=== PATIENT | female | born 2000 | race African-American/Black ===

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

== ENCOUNTER → 2023-08-27 | Emergency (ER) | payer BC, OTHER, SELFPAY ==
[~2023-08-27] MED LIST: LIDOCAINE 1% MPF 5 ML VIAL ONE
--- OUTSIDE RECORDS SUMMARY | 2023-08-27 15:55 | XMS REPORT | Continuity of Care Document ---
Author Name Unknown Address [address] [facility] [place] [address] [facility] Address [address] [facility] [address] [place] [address] Care Team Providers Care Concreter Name Role Phone [facility] Primary Care Physician UnavailChayo Velazco MD Attending Clinician [phone] ELVA SNYDER Attending Clinician UnavailELVA Perez Attending Clinician UnavailSARAH Tineo Attending Clinician Unavailable Sarah Molina NP Attending Clinician [phone] Doctor Unassigned, [place] Attending Clinician U Mita Mallory MA Attending Clinician UnavailSpencer Whittaker MD Attending Clinician [phone] SPENCER CASTILLO Attending Clinician Unavailable Payers Payer Name Policy Type Policy Number Effective Date Expirati on Date Source [place] [employer] [id number] 2019 00:00:00 Problems Condition Name Condition Details Condition Category Status Onset Date Resolution Date Last Treatment Date Treating Clinician Comments Source Oral contracept tamera pill surveillan ce Oral contracept tamera pill surveillan ce Disease Active 04-09 00:00: 00 [facility] BMI 30.0-30.9, adult BMI 30.0-30.9, adult Disease Active 09-18 00:00: 00 [facility] Encounter for surveillan ce of contracept yoselyn, unspecifie d contracept tamera Encounter for surveillan ce of contracept yoselyn, unspecifie d contracept tamera Disease Active 2021-07 00:00: 00 [facility] Allergic reaction, initial encounter Allergic reaction, initial encounter Disease Active 2021-07 00:00: 00 [facility] BMI 27.0-27.9, adult BMI 27.0-27.9, adult Disease Active 2021-07 00:00: 00 [facility] Screening for venereal disease Screening for venereal disease Disease Active 09-16 00:00: 00 [facility] Vaginal discharge Vaginal discharge Disease Active 09-16 00:00: 00 [facility] Allergies, Adverse Reactions, Alerts Allergy Name Allergy Type Status Severity Reaction(s) Onset Date Inactive Date Treating Clinician Comments Source PENICILL INS Drug Class Active High Anaphylaxis 04-08 00:00: 00 [facility] Penicill ins Drug Allergy Active Anaphylaxis 04-08 00:00: 00 [facility] PENICILL IN DRUG INGREDI Active High Anaphylaxis 2014-07 00:00: 00 [facility] Penicill in Propensi ty to adverse reaction s Active Anaphylaxis 2014-07 00:00: 00 [facility] NO KNOWN ALLERGIE S Drug Class Active [facility] Social History Social Habit Start Date Stop Date Quantity Comments Source History of tobacco use Cigar Smoker [facility] History SDOH Alcohol Frequency [facility] History SDOH Alcohol Std Drinks [facility] History SDOH Alcohol Binge [facility] intake 2023-04-09 00:00:00 2023-04-09 00:00:00 Current drinker of alcohol (finding) [facility] Exposure to SARS-CoV-2 (event) 2022-09-08 00:00:00 2022-09-18 09:24:[address] [facility] Tobacco use and exposure 2022-09-18 00:00:00 2022-09-18 00:00:00 Smokeless tobacco non-user [facility] Tobacco Comment 2022-05-01 00:00:00 2022-05-01 00:00:00 smoked 1-[address] [facility] Alcohol Comment 2021-09-16 00:00:00 2021-09-16 00:00:[address] [facility] History of Social function 2021-09-16 00:00:00 2021-09-16 00:00:00 [facility] Sex Assigned At 2001 00:00:00 2001 00:00:00 [facility] Smoking Status Start Date Stop Date Source Tobacco smoking consumption unknown [facility] Ex-smoker 2022-09-18 00:00:00 2022-09-18 00:00:00 [facility] Medications Ordered Medication Name Filled Medication Name Start Date Stop Date Current Medication? Ordering Clinician Indication Dosage Frequency Signature (SIG) Comments Components Source metroNIDAZO LE 500 mg tablet 04-11 00:00: 00 Yes [id number] 500mg Take 1 tablet by mouth every 12 (twelve) hours. [facility] acetaminoph en-codeine (TYLENOL #3) 300-30 mg tablet 1 tablet 04-09 06:30: 00 04-09 18:29 :00 No 1{tbl} 1 tablet, Oral, ONCE, 1 dose, On Sun04/09/23 at 0130, Routine [facility] dexamethaso ne sod phos PF injection 10 mg 04-09 06:30: 00 04-09 18:29 :00 No 10mg 10 mg, Intramuscu lar, ONCE, 1 dose, On Sun04/09/23 at 0130, Routine [facility] ipratropium -albuteroL (DUONEB) 0.5 mg-3 mg(2.5 mg base)/3 mL nebulizer solution 3 mL 04-09 06:15: 00 04-09 18:14 :00 No 3mL 3 mL, Inhalation , ONCE NOW, 1 dose, On Sun04/09/23 at 0115, Routine [facility] norgestimat e-ethinyl estradioL (ORTHO TRI-CYCLEN, 28,) 0.18/0.215/ 0.25 mg-35 mcg (28) tablet 04-09 00:00: 00 Yes [id number] 1{tbl} Take 1 tablet by mouth in the morning. [facility] norgestimat e-ethinyl estradioL (ORTHO TRI-CYCLEN, 28,) 0.18/0.215/ 0.25 mg-35 mcg (28) tablet 04-09 00:00: 00 Yes [id number] 1{tbl} Take 1 tablet by mouth in the morning. [facility] doxycycline hyclate 100 mg capsule 04-09 00:00: 00 Yes [id number] 100mg Take 1 capsule by mouth in the morning and 1 capsule in the evening. [facility] methylPREDN ISolone 4 mg tablets 04-09 00:00: 00 Yes [id number] Take by mouth SEE-INSTRU CTIONS. follow package directions [facility] albuterol 90 mcg/actuati on inhaler 04-09 00:00: 00 Yes [id number] 2{puff} Inhale 2 Puffs every 4 (four) hours as needed for Wheezing or Shortness of Breath. [facility] norgestimat e-ethinyl estradioL (ORTHO TRI-CYCLEN, 28,) 0.18/0.215/ 0.25 mg-35 mcg (28) tablet 04-09 00:00: 00 Yes [id number] 1{tbl} Take 1 tablet by mouth in the morning. [facility] doxycycline hyclate 100 mg capsule 04-09 00:00: 00 Yes [id number] 100mg Take 1 capsule by mouth in the morning and 1 capsule in the evening. [facility] methylPREDN ISolone 4 mg tablets 04-09 00:00: 00 Yes [id number] Take by mouth SEE-INSTRU CTIONS. follow package directions [facility] albuterol 90 mcg/actuati on inhaler 04-09 00:00: 00 Yes [id number] 2{puff} Inhale 2 Puffs every 4 (four) hours as needed for Wheezing or Shortness of Breath. [facility] codeine-gua ifenesin 10-100 mg/5 mL oral solution 04-09 00:00: 00 04-17 04:59 :00 No 10mL Take 10 mL by mouth every 6 (six) hours as needed for Cough for up to 7 days. Indication s: cough [facility] codeine-gua ifenesin 10-100 mg/5 mL oral solution 04-09 00:00: 00 04-17 04:59 :00 No 10mL Take 10 mL by mouth every 6 (six) hours as needed for Cough for up to 7 days. Indication s: cough [facility] norgestimat e-ethinyl estradioL (ORTHO TRI-CYCLEN, 28,) 0.18/0.215/ 0.25 mg-35 mcg (28) tablet 09-18 00:00: 00 Yes [id number] 1{tbl} Take 1 tablet by mouth in the morning. [facility] norgestimat e-ethinyl estradioL (ORTHO TRI-CYCLEN, 28,) 0.18/0.215/ 0.25 mg-35 mcg (28) tablet 09-18 00:00: 00 Yes [id number] 1{tbl} Take 1 tablet by mouth in the morning. [facility] norgestimat e-ethinyl estradioL (ORTHO TRI-CYCLEN, 28,) 0.18/0.215/ 0.25 mg-35 mcg (28) tablet 09-18 00:00: 00 04-09 00:00 :00 No [id number] 1{tbl} Take 1 tablet by mouth in the morning. [facility] norgestimat e-ethinyl estradioL (ORTHO TRI-CYCLEN, 28,) 0.18/0.215/ 0.25 mg-35 mcg (28) tablet 09-18 00:00: 00 04-09 00:00 :00 No [id number] 1{tbl} Take 1 tablet by mouth in the morning. [facility] norgestimat e-ethinyl estradioL (ORTHO TRI-CYCLEN, 28,) 0.18/0.215/ 0.25 mg-35 mcg (28) tablet 2021-07 00:00: 00 Yes [id number] 1{tbl} Take 1 tablet by mouth in the morning. [facility] norgestimat e-ethinyl estradioL (ORTHO TRI-CYCLEN, 28,) 0.18/0.215/ 0.25 mg-35 mcg (28) tablet 2021-07 00:00: 00 Yes [id number] 1{tbl} Take 1 tablet by mouth in the morning. [facility] norgestimat e-ethinyl estradioL (ORTHO TRI-CYCLEN, 28,) 0.18/0.215/ 0.25 mg-35 mcg (28) tablet 2021-07 00:00: 00 Yes [id number] 1{tbl} Take 1 tablet by mouth in the morning. [facility] norgestimat e-ethinyl estradioL (ORTHO TRI-CYCLEN, 28,) 0.18/0.215/ 0.25 mg-35 mcg (28) tablet 2021-07 00:00: 00 Yes [id number] 1{tbl} Take 1 tablet by mouth in the morning. [facility] norgestimat e-ethinyl estradioL (ORTHO TRI-CYCLEN, 28,) 0.18/0.215/ 0.25 mg-35 mcg (28) tablet 2021-07 00:00: 00 09-18 00:00 :00 No [id number] 1{tbl} Take 1 tablet by mouth in the morning. [facility] norgestimat e-ethinyl estradioL (ORTHO TRI-CYCLEN, 28,) 0.18/0.215/ 0.25 mg-35 mcg (28) tablet 2021-07 00:00: 00 09-18 00:00 :00 No [id number] 1{tbl} Take 1 tablet by mouth in the morning. [facility] methylPREDN ISolone 4 mg tablets 2021-07 00:00: 05-25 05:59 :00 No [id number] Take by mouth SEE-INSTRU CTIONS for 6 days. follow package directions [facility] methylPREDN ISolone 4 mg tablets 2021-07 00:00: 00 05-25 05:59 :00 No [id number] Take by mouth SEE-INSTRU CTIONS for 6 days. follow package directions [facility] norelgestro min-ethinyl estradiol 150-35 mcg/24 hr patch 2021-07 0-17 00:00: 00 Yes [id number] 1{patch } Apply 1 Patch to skin weekly. [facility] norelgestro min-ethinyl estradiol 150-35 mcg/24 hr patch 2021-07 0 00:00: 00 Yes [id number] 1{patch } Apply 1 Patch to skin weekly. [facility] norelgestro min-ethinyl estradiol 150-35 mcg/24 hr patch 2021-07 00:00: 00 05-18 00:00 :00 No [id number] 1{patch } Apply 1 Patch to skin weekly. [facility] norelgestro min-ethinyl estradiol 150-35 mcg/24 hr patch 2021-07 00:00: 00 05-18 00:00 :00 No [id number] 1{patch } Apply 1 Patch to skin weekly. [facility] triamcinolo ne acetonide 0.1 % ointment 08-25 00:00: 00 09-16 00:00 :00 No APPLY 1 TO 2 TIMES A DAY [facility] traZODone 50 mg tablet 08-18 00:00: 00 09-16 00:00 :00 No TAKE BY MOUTH 1/2 TABLET AT BEDTIME FOR 4 DAYS THEN 1 TABLET AT BEDTIME [facility] pantoprazol e (PROTONIX) 40 mg EC tablet 2014-07 1 00:00: 00 09-16 00:00 :00 No [facility] montelukast (SINGULAIR) 10 mg tablet 2014-07 0 00:00: 00 09-16 00:00 :00 No [facility] VYVANSE 60 mg capsule 2014-07 0 00:00: 00 09-16 00:00 :00 No [facility] amitriptyli ne (ELAVIL) 50 mg tablet 2014-07 00:00: 00 09-16 00:00 :00 No [facility] OXcarbazepi ne (TRILEPTAL) 300 mg tablet 2014-07 00:00: 00 09-16 00:00 :00 No [facility] QUEtiapine (SEROQUEL) 100 mg tablet 04-07 00:00: 00 09-16 00:00 :00 No [facility] PROAIR HFA 90 mcg/actuati on inhaler 03-03 00:00: 00 09-16 00:00 :00 No [facility] Immunizations Ordered Immunization Name Filled Immunization Name Date Status Comments Source TDAP 2019-04-25 00:00:[address] [facility] TDAP 2019-04-25 00:00:[address] [facility] TDAP 2019-04-25 00:00:[address] [facility] TDAP 2019-04-25 00:00:[address] [facility] Meningococcal Polysaccharide (groups A, C, Y and W-135) conjugate vaccine (MCV4P) 2019-02-25 00:00:[address] [facility] TDAP 2019-02-25 00:00:[address] [facility] Meningococcal Polysaccharide (groups A, C, Y and W-135) conjugate vaccine (MCV4P) 2019-02-25 00:00:[address] [facility] TDAP 2019-02-25 00:00:[address] [facility] Meningococcal Polysaccharide (groups A, C, Y and W-135) conjugate vaccine (MCV4P) 2019-02-25 00:00:[address] [facility] TDAP 2019-02-25 00:00:[address] [facility] Meningococcal Polysaccharide (groups A, C, Y and W-135) conjugate vaccine (MCV4P) 2019-02-25 00:00:[address] [facility] TDAP 2019-02-25 00:00:[address] [facility] Influenza Virus Vaccine Quad .5 mL IM 6+ MO 2017-06-06 00:00:[address] [facility] Influenza Virus Vaccine Quad .5 mL IM 6+ MO 2017-06-06 00:00:[address] [facility] Influenza Virus Vaccine Quad .5 mL IM 6+ MO 2017-06-06 00:00:[address] [facility] Influenza Virus Vaccine Quad .5 mL IM 6+ MO 2017-06-06 00:00:[address] [facility] Influenza Virus Vaccine Quad .5 mL IM 6+ MO 2016-05-02 00:00:[address] [facility] HPV 2016-05-02 00:00:[address] [facility] Influenza Virus Vaccine Quad .5 mL IM 6+ MO 2016-05-02 00:00:[address] [facility] HPV 2016-05-02 00:00:[address] [facility] Influenza Virus Vaccine Quad .5 mL IM 6+ MO 2016-05-02 00:00:[address] [facility] HPV 2016-05-02 00:00:[address] [facility] Influenza Virus Vaccine Quad .5 mL IM 6+ MO 2016-05-02 00:00:[address] [facility] HPV 2016-05-02 00:00:[address] [facility] Influenza Virus Vaccine Quad Nasal 2015-05-07 00:00:[address] [facility] Influenza Virus Vaccine Quad Nasal 2015-05-07 00:00:[address] [facility] Influenza Virus Vaccine Quad Nasal 2015-05-07 00:00:[address] [facility] Influenza Virus Vaccine Quad Nasal 2015-05-07 00:00:[address] [facility] Influenza Virus Vaccine Quad IM Multi-dose 6+ MO 2014-05-09 00:00:[address] [facility] Influenza Virus Vaccine Quad IM Multi-dose 6+ MO 2014-05-09 00:00:[address] [facility] Influenza Virus Vaccine Quad IM Multi-dose 6+ MO 2014-05-09 00:00:[address] [facility] Influenza Virus Vaccine Quad IM Multi-dose 6+ MO 2014-05-09 00:00:[address] [facility] HPV 2014-01-07 00:00:[address] [facility] HPV 2014-01-07 00:00:[address] [facility] HPV 2014-01-07 00:00:[address] [facility] HPV 2014-01-07 00:00:[address] [facility] HPV 2013-09-23 00:00:[address] [facility] Meningococcal Polysaccharide (groups A, C, Y and W-135) conjugate vaccine (MCV4P) 2013-09-23 00:00:[address] [facility] TDAP 2013-09-23 00:00:[address] [facility] Varicella (varivax)(chicken pox) 2013-09-23 00:00:[address] [facility] HPV 2013-09-23 00:00:[address] [facility] Meningococcal Polysaccharide (groups A, C, Y and W-135) conjugate vaccine (MCV4P) 2013-09-23 00:00:[address] [facility] TDAP 2013-09-23 00:00:[address] [facility] Varicella (varivax)(chicken pox) 2013-09-23 00:00:[address] [facility] HPV 2013-09-23 00:00:[address] [facility] Meningococcal Polysaccharide (groups A, C, Y and W-135) conjugate vaccine (MCV4P) 2013-09-23 00:00:[address] [facility] TDAP 2013-09-23 00:00:[address] [facility] Varicella (varivax)(chicken pox) 2013-09-23 00:00:[address] [facility] HPV 2013-09-23 00:00:[address] [facility] Meningococcal Polysaccharide (groups A, C, Y and W-135) conjugate vaccine (MCV4P) 2013-09-23 00:00:[address] [facility] TDAP 2013-09-23 00:00:[address] [facility] Varicella (varivax)(chicken pox) 2013-09-23 00:00:[address] [facility] HEPATITIS A 2011-02-24 00:00:[address] [facility] HEPATITIS A 2011-02-24 00:00:[address] [facility] HEPATITIS A 2011-02-24 00:00:[address] [facility] HEPATITIS A 2011-02-24 00:00:[address] [facility] DTaP, Unspecified Formulation 2005-08-14 00:00:[address] [facility] HEPATITIS A 2005-08-14 00:00:[address] [facility] MMR 2005-08-14 00:00:[address] [facility] Pneumococcal 7 Conjugate, PCV7 (Prevnar7) 2005-08-14 00:00:[address] [facility] IPV 2005-08-14 00:00:[address] [facility] DTaP, Unspecified Formulation 2005-08-14 00:00:[address] [facility] HEPATITIS A 2005-08-14 00:00:[address] [facility] MMR 2005-08-14 00:00:[address] [facility] Pneumococcal 7 Conjugate, PCV7 (Prevnar7) 2005-08-14 00:00:[address] [facility] IPV 2005-08-14 00:00:[address] [facility] DTaP, Unspecified Formulation 2005-08-14 00:00:[address] [facility] HEPATITIS A 2005-08-14 00:00:[address] [facility] MMR 2005-08-14 00:00:[address] [facility] Pneumococcal 7 Conjugate, PCV7 (Prevnar7) 2005-08-14 00:00:[address] [facility] IPV 2005-08-14 00:00:[address] [facility] DTaP, Unspecified Formulation 2005-08-14 00:00:[address] [facility] HEPATITIS A 2005-08-14 00:00:[address] [facility] MMR 2005-08-14 00:00:[address] [facility] Pneumococcal 7 Conjugate, PCV7 (Prevnar7) 2005-08-14 00:00:[address] [facility] IPV 2005-08-14 00:00:[address] [facility] DTaP, Unspecified Formulation 2002-08-18 00:00:[address] [facility] HIB 4 Dose Schedule 2002-08-18 00:00:[address] [facility] MMR 2002-08-18 00:00:[address] [facility] Pneumococcal 7 Conjugate, PCV7 (Prevnar7) 2002-08-18 00:00:[address] [facility] Varicella (varivax)(chicken pox) 2002-08-18 00:00:[address] [facility] DTaP, Unspecified Formulation 2002-08-18 00:00:[address] [facility] HIB 4 Dose Schedule 2002-08-18 00:00:[address] [facility] MMR 2002-08-18 00:00:[address] [facility] Pneumococcal 7 Conjugate, PCV7 (Prevnar7) 2002-08-18 00:00:[address] [facility] Varicella (varivax)(chicken pox) 2002-08-18 00:00:[address] [facility] DTaP, Unspecified Formulation 2002-08-18 00:00:[address] [facility] HIB 4 Dose Schedule 2002-08-18 00:00:[address] [facility] MMR 2002-08-18 00:00:[address] [facility] Pneumococcal 7 Conjugate, PCV7 (Prevnar7) 2002-08-18 00:00:[address] [facility] Varicella (varivax)(chicken pox) 2002-08-18 00:00:[address] [facility] DTaP, Unspecified Formulation 2002-08-18 00:00:[address] [facility] HIB 4 Dose Schedule 2002-08-18 00:00:[address] [facility] MMR 2002-08-18 00:00:[address] [facility] Pneumococcal 7 Conjugate, PCV7 (Prevnar7) 2002-08-18 00:00:[address] [facility] Varicella (varivax)(chicken pox) 2002-08-18 00:00:[address] [facility] Hep B, Adol or Pedi Dosage 2002-07-05 00:00:[address] [facility] Hep B, Adol or Pedi Dosage 2002-07-05 00:00:[address] [facility] Hep B, Adol or Pedi Dosage 2002-07-05 00:00:[address] [facility] Hep B, Adol or Pedi Dosage 2002-07-05 00:00:[address] [facility] Hep B, Adol or Pedi Dosage 2002-05-05 00:00:[address] [facility] IPV 2002-05-05 00:00:[address] [facility] Hep B, Adol or Pedi Dosage 2002-05-05 00:00:[address] [facility] IPV 2002-05-05 00:00:[address] [facility] Hep B, Adol or Pedi Dosage 2002-05-05 00:00:[address] [facility] IPV 2002-05-05 00:00:[address] [facility] Hep B, Adol or Pedi Dosage 2002-05-05 00:00:[address] [facility] IPV 2002-05-05 00:00:[address] [facility] DTaP, Unspecified Formulation 2002-01-22 00:00:[address] [facility] HIB 4 Dose Schedule 2002-01-22 00:00:[address] [facility] Pneumococcal 7 Conjugate, PCV7 (Prevnar7) 2002-01-22 00:00:[address] [facility] DTaP, Unspecified Formulation 2002-01-22 00:00:[address] [facility] HIB 4 Dose Schedule 2002-01-22 00:00:[address] [facility] Pneumococcal 7 Conjugate, PCV7 (Prevnar7) 2002-01-22 00:00:[address] [facility] DTaP, Unspecified Formulation 2002-01-22 00:00:[address] [facility] HIB 4 Dose Schedule 2002-01-22 00:00:[address] [facility] Pneumococcal 7 Conjugate, PCV7 (Prevnar7) 2002-01-22 00:00:[address] [facility] DTaP, Unspecified Formulation 2002-01-22 00:00:[address] [facility] HIB 4 Dose Schedule 2002-01-22 00:00:[address] [facility] Pneumococcal 7 Conjugate, PCV7 (Prevnar7) 2002-01-22 00:00:[address] [facility] DTaP, Unspecified Formulation 2001 00:00:[address] [facility] HIB 4 Dose Schedule 2001 00:00:[address] [facility] Pneumococcal 7 Conjugate, PCV7 (Prevnar7) 2001 00:00:[address] [facility] IPV 2001 00:00:[address] [facility] DTaP, Unspecified Formulation 2001 00:00:[address] [facility] HIB 4 Dose Schedule 2001 00:00:[address] [facility] Pneumococcal 7 Conjugate, PCV7 (Prevnar7) 2001 00:00:[address] [facility] IPV 2001 00:00:[address] [facility] DTaP, Unspecified Formulation 2001 00:00:[address] [facility] HIB 4 Dose Schedule 2001 00:00:[address] [facility] Pneumococcal 7 Conjugate, PCV7 (Prevnar7) 2001 00:00:[address] [facility] IPV 2001 00:00:[address] [facility] DTaP, Unspecified Formulation 2001 00:00:[address] [facility] HIB 4 Dose Schedule 2001 00:00:[address] [facility] Pneumococcal 7 Conjugate, PCV7 (Prevnar7) 2001 00:00:[address] [facility] IPV 2001 00:00:[address] [facility] DTaP, Unspecified Formulation 2001 00:00:[address] [facility] HIB 4 Dose Schedule 2001 00:00:[address] [facility] Pneumococcal 7 Conjugate, PCV7 (Prevnar7) 2001 00:00:[address] [facility] IPV 2001 00:00:[address] [facility] DTaP, Unspecified Formulation 2001 00:00:[address] [facility] HIB 4 Dose Schedule 2001 00:00:[address] [facility] Pneumococcal 7 Conjugate, PCV7 (Prevnar7) 2001 00:00:[address] [facility] IPV 2001 00:00:[address] [facility] DTaP, Unspecified Formulation 2001 00:00:[address] [facility] HIB 4 Dose Schedule 2001 00:00:[address] [facility] Pneumococcal 7 Conjugate, PCV7 (Prevnar7) 2001 00:00:[address] [facility] IPV 2001 00:00:[address] [facility] DTaP, Unspecified Formulation 2001 00:00:[address] [facility] HIB 4 Dose Schedule 2001 00:00:[address] [facility] Pneumococcal 7 Conjugate, PCV7 (Prevnar7) 2001 00:00:[address] [facility] IPV 2001 00:00:[address] [facility] Hep B, Adol or Pedi Dosage 2001 00:00:[address] [facility] Hep B, Adol or Pedi Dosage 2001 00:00:[address] [facility] Hep B, Adol or Pedi Dosage 2001 00:00:[address] [facility] Hep B, Adol or Pedi Dosage 2001 00:00:[address] [facility] Hep B, Adol or Pedi Dosage 2001 00:00:[address] [facility] Hep B, Adol or Pedi Dosage 2001 00:00:[address] [facility] Hep B, Adol or Pedi Dosage 2001 00:00:[address] [facility] Hep B, Adol or Pedi Dosage 2001 00:00:[address] [facility] DTaP, Unspecified Formulation Unknown Completed [facility] DTaP, Unspecified Formulation Unknown Completed [facility] DTaP, Unspecified Formulation Unknown Completed [facility] DTaP, Unspecified Formulation Unknown Completed [facility] DTaP, Unspecified Formulation Unknown Completed [facility] Influenza Virus Vaccine Quad .5 mL IM 6+ MO (FLUZONE/FLULAVAL/FL UARIX) Unknown Completed [facility] Influenza Virus Vaccine Quad .5 mL IM 6+ MO (FLUZONE/FLULAVAL/FL UARIX) Unknown Completed [facility] Influenza Virus Vaccine Quad IM Multi-dose 6+ MO Unknown Completed [facility] Influenza Virus Vaccine Quad Nasal (Flumist) Unknown Completed [facility] HEPATITIS A Unknown Completed [facility] HEPATITIS A Unknown Completed [facility] Hep B, Adol or Pedi Dosage Unknown Completed [facility] Hep B, Adol or Pedi Dosage Unknown Completed [facility] Hep B, Adol or Pedi Dosage Unknown Completed [facility] Hep B, Adol or Pedi Dosage Unknown Completed [facility] HIB 4 Dose Schedule Unknown Completed [facility] HIB 4 Dose Schedule Unknown Completed [facility] HIB 4 Dose Schedule Unknown Completed [facility] HIB 4 Dose Schedule Unknown Completed [facility] HPV Unknown Completed [facility] HPV Unknown Completed [facility] HPV Unknown Completed [facility] Meningococcal Polysaccharide (groups A, C, Y and W-135) conjugate vaccine (MCV4P) Unknown Completed [facility] Meningococcal Polysaccharide (groups A, C, Y and W-135) conjugate vaccine (MCV4P) Unknown Completed [facility] MMR Unknown Completed [facility] MMR Unknown Completed [facility] Pneumococcal 7 Conjugate, PCV7 (Prevnar7) Unknown Completed [facility] Pneumococcal 7 Conjugate, PCV7 (Prevnar7) Unknown Completed [facility] Pneumococcal 7 Conjugate, PCV7 (Prevnar7) Unknown Completed [facility] Pneumococcal 7 Conjugate, PCV7 (Prevnar7) Unknown Completed [facility] Pneumococcal 7 Conjugate, PCV7 (Prevnar7) Unknown Completed [facility] IPV Unknown Completed [facility] IPV Unknown Completed [facility] IPV Unknown Completed [facility] IPV Unknown Completed [facility] TDAP Unknown Completed [facility] TDAP Unknown Completed [facility] TDAP Unknown Completed [facility] Varicella (varivax)(chicken pox) Unknown Completed [facility] Varicella (varivax)(chicken pox) Unknown Completed [facility] DTaP, Unspecified Formulation Unknown Completed [facility] DTaP, Unspecified Formulation Unknown Completed [facility] DTaP, Unspecified Formulation Unknown Completed [facility] DTaP, Unspecified Formulation Unknown Completed [facility] DTaP, Unspecified Formulation Unknown Completed [facility] Influenza Virus Vaccine Quad .5 mL IM 6+ MO (FLUZONE/FLULAVAL/FL UARIX) Unknown Completed [facility] Influenza Virus Vaccine Quad .5 mL IM 6+ MO (FLUZONE/FLULAVAL/FL UARIX) Unknown Completed [facility] Influenza Virus Vaccine Quad IM Multi-dose 6+ MO Unknown Completed [facility] Influenza Virus Vaccine Quad Nasal (Flumist) Unknown Completed [facility] HEPATITIS A Unknown Completed [facility] HEPATITIS A Unknown Completed [facility] Hep B, Adol or Pedi Dosage Unknown Completed [facility] Hep B, Adol or Pedi Dosage Unknown Completed [facility] Hep B, Adol or Pedi Dosage Unknown Completed [facility] Hep B, Adol or Pedi Dosage Unknown Completed [facility] HIB 4 Dose Schedule Unknown Completed [facility] HIB 4 Dose Schedule Unknown Completed [facility] HIB 4 Dose Schedule Unknown Completed [facility] HIB 4 Dose Schedule Unknown Completed [facility] HPV Unknown Completed [facility] HPV Unknown Completed [facility] HPV Unknown Completed [facility] Meningococcal Polysaccharide (groups A, C, Y and W-135) conjugate vaccine (MCV4P) Unknown Completed [facility] Meningococcal Polysaccharide (groups A, C, Y and W-135) conjugate vaccine (MCV4P) Unknown Completed [facility] MMR Unknown Completed [facility] MMR Unknown Completed [facility] Pneumococcal 7 Conjugate, PCV7 (Prevnar7) Unknown Completed [facility] Pneumococcal 7 Conjugate, PCV7 (Prevnar7) Unknown Completed [facility] Pneumococcal 7 Conjugate, PCV7 (Prevnar7) Unknown Completed [facility] Pneumococcal 7 Conjugate, PCV7 (Prevnar7) Unknown Completed [facility] Pneumococcal 7 Conjugate, PCV7 (Prevnar7) Unknown Completed [facility] IPV Unknown Completed [facility] IPV Unknown Completed [facility] IPV Unknown Completed [facility] IPV Unknown Completed [facility] TDAP Unknown Completed [facility] TDAP Unknown Completed [facility] TDAP Unknown Completed [facility] Varicella (varivax)(chicken pox) Unknown Completed [facility] Varicella (varivax)(chicken pox) Unknown Completed [facility] DTaP, Unspecified Formulation Unknown Completed [facility] DTaP, Unspecified Formulation Unknown Completed [facility] DTaP, Unspecified Formulation Unknown Completed [facility] DTaP, Unspecified Formulation Unknown Completed [facility] DTaP, Unspecified Formulation Unknown Completed [facility] Influenza Virus Vaccine Quad .5 mL IM 6+ MO (FLUZONE/FLULAVAL/FL UARIX) Unknown Completed [facility] Influenza Virus Vaccine Quad .5 mL IM 6+ MO (FLUZONE/FLULAVAL/FL UARIX) Unknown Completed [facility] Influenza Virus Vaccine Quad IM Multi-dose 6+ MO Unknown Completed [facility] Influenza Virus Vaccine Quad Nasal (Flumist) Unknown Completed [facility] HEPATITIS A Unknown Completed [facility] HEPATITIS A Unknown Completed [facility] Hep B, Adol or Pedi Dosage Unknown Completed [facility] Hep B, Adol or Pedi Dosage Unknown Completed [facility] Hep B, Adol or Pedi Dosage Unknown Completed [facility] Hep B, Adol or Pedi Dosage Unknown Completed [facility] HIB 4 Dose Schedule Unknown Completed [facility] HIB 4 Dose Schedule Unknown Completed [facility] HIB 4 Dose Schedule Unknown Completed [facility] HIB 4 Dose Schedule Unknown Completed [facility] HPV Unknown Completed [facility] HPV Unknown Completed [facility] HPV Unknown Completed [facility] Meningococcal Polysaccharide (groups A, C, Y and W-135) conjugate vaccine (MCV4P) Unknown Completed [facility] Meningococcal Polysaccharide (groups A, C, Y and W-135) conjugate vaccine (MCV4P) Unknown Completed [facility] MMR Unknown Completed [facility] MMR Unknown Completed [facility] Pneumococcal 7 Conjugate, PCV7 (Prevnar7) Unknown Completed [facility] Pneumococcal 7 Conjugate, PCV7 (Prevnar7) Unknown Completed [facility] Pneumococcal 7 Conjugate, PCV7 (Prevnar7) Unknown Completed [facility] Pneumococcal 7 Conjugate, PCV7 (Prevnar7) Unknown Completed [facility] Pneumococcal 7 Conjugate, PCV7 (Prevnar7) Unknown Completed [facility] IPV Unknown Completed [facility] IPV Unknown Completed [facility] IPV Unknown Completed [facility] IPV Unknown Completed [facility] TDAP Unknown Completed [facility] TDAP Unknown Completed [facility] TDAP Unknown Completed [facility] Varicella (varivax)(chicken pox) Unknown Completed [facility] Varicella (varivax)(chicken pox) Unknown Completed [facility] Vital Signs Vital Name Observation Time Observation Value Comments S villace Systolic blood pressure 2023-04-09 14:06:00 135 mm[Hg] [facility] Diastolic blood pressure 2023-04-09 14:06:00 72 mm[Hg] [facility] Heart rate 2023-04-09 14:06:00 106 /min [facility] Body temperature 2023-04-09 14:06:[address] [facility] Respiratory rate 2023-04-09 14:06:00 16 /min [facility] Body height 2023-04-09 14:06:[address] [facility] Body weight 2023-04-09 14:06:[address] [facility] BMI 2023-04-09 14:06:00 27.40 kg/m2 [facility] Systolic blood pressure 2023-04-09 03:26:00 122 mm[Hg] [facility] Diastolic blood pressure 2023-04-09 03:26:00 75 mm[Hg] [facility] Heart rate 2023-04-09 03:26:00 62 /min [facility] Body temperature 2023-04-09 03:26:[address] [facility] Respiratory rate 2023-04-09 03:26:00 16 /min [facility] Body height 2023-04-09 03:26:[address] [facility] Body weight 2023-04-09 03:26:[address] [facility] BMI 2023-04-09 03:26:00 30.18 kg/m2 [facility] Oxygen saturation in Arterial blood by Pulse oximetry 2023-04-09 03:26:00 97 /min [facility] Systolic blood pressure 2022-09-18 15:32:00 124 mm[Hg] [facility] Diastolic blood pressure 2022-09-18 15:32:00 87 mm[Hg] [facility] Heart rate 2022-09-18 15:32:00 82 /min [facility] Body temperature 2022-09-18 15:32:[address] [facility] Respiratory rate 2022-09-18 15:32:00 16 /min [facility] Body height 2022-09-18 15:32:[address] [facility] Body weight 2022-09-18 15:32:[address] [facility] BMI 2022-09-18 15:32:00 30.04 kg/m2 [facility] Systolic blood pressure 2022-05-18 15:54:00 101 mm[Hg] [facility] Diastolic blood pressure 2022-05-18 15:54:00 66 mm[Hg] [facility] Heart rate 2022-05-18 15:54:00 88 /min [facility] Body temperature 2022-05-18 15:54:[address] [facility] Respiratory rate 2022-05-18 15:54:00 16 /min [facility] Body height 2022-05-18 15:54:[address] [facility] Body weight 2022-05-18 15:54:[address] [facility] BMI 2022-05-18 15:54:00 29.51 kg/m2 [facility] Oxygen saturation in Arterial blood by Pulse oximetry 2022-05-18 15:54:00 98 /min [facility] Systolic blood pressure 2022-05-01 19:04:00 105 mm[Hg] [facility] Diastolic blood pressure 2022-05-01 19:04:00 66 mm[Hg] [facility] Heart rate 2022-05-01 19:04:00 77 /min [facility] Body temperature 2022-05-01 19:04:[address] [facility] Respiratory rate 2022-05-01 19:04:00 16 /min [facility] Body height 2022-05-01 19:04:[address] [facility] Body weight 2022-05-01 19:04:[address] [facility] BMI 2022-05-01 19:04:00 29.31 kg/m2 [facility] Oxygen saturation in Arterial blood by Pulse oximetry 2022-05-01 19:04:00 98 /min [facility] Systolic blood pressure 2021-09-16 20:30:00 107 mm[Hg] [facility] Diastolic blood pressure 2021-09-16 20:30:00 70 mm[Hg] [facility] Heart rate 2021-09-16 20:30:00 55 /[facility] Body temperature 2021-09-16 20:30:[address] [facility] Respiratory rate 2021-09-16 20:30:00 16 /min [facility] Body height 2021-09-16 20:30:[address] [facility] Body weight 2021-09-16 20:30:[address] [facility] BMI 2021-09-16 20:30:00 27.23 kg/m2 [facility] Systolic blood pressure 2021-09-16 20:30:00 107 mm[Hg] [facility] Diastolic blood pressure 2021-09-16 20:30:00 70 mm[Hg] [facility] Heart rate 2021-09-16 20:30:00 55 /min [facility] Body temperature 2021-09-16 20:30:[address] [facility] Respiratory rate 2021-09-16 20:30:00 16 /min [facility] Body height 2021-09-16 20:30:[address] [facility] Body weight 2021-09-16 20:30:[address] [facility] BMI 2021-09-16 20:30:00 27.23 kg/m2 [facility] Procedures Procedure Date / Time Performed Performing Clinician Source POCT TEST 2023-04-09 05:20:[address] [facility] ASSIGNMENT OF BENEFITS 2023-04-09 04:19:09 Docto r Unassigned, [place] [facility] NOTICE OF PRIVACY PRACTICES 2023-04-09 03:21:17 Doctor Unassigned, [place] [facility] CONSENT/REFUSAL FOR DIAGNOSIS AND TREATMENT 2023-04-09 03:19:40 Doctor Unassigned, [place] [facility] POCT TEST 2023-04-09 00:00:[address] [facility] CONSENT/REFUSAL FOR DIAGNOSIS AND TREATMENT 2022-09-18 15:26:49 Doctor Unassigned, [place] [facility] ASSIGNMENT OF BENEFITS 2022-09-18 15:26:30 Docyordy r Unassigned, [place] [facility] GC & CHLAMYDIA AMPLIFIED ASSAY 2022-05-18 16:13:[address] [facility] TRICHOMONAS AMPLIFIED ASSAY 2022-05-18 16:13:[address] [facility] POCT TEST 2022-05-18 [facility] CHLAMYDIA AMPLIFIED ASSAY 2021-09-16 20:53:[address] [facility] GALV ONLY - VAGINAL PATHOGENS BY NUCLEIC ACID TESTING 2021-09-16 20:53:[address] [facility] Encounters Start Date/Time End Date/Time Encounter Type Admission Type Attending [facility] Care Department Encounter ID Source 2023-05-14 10:00:00 2023-05-14 10:00:00 Outpatient R [facility] [id number] [facility] 2023-04-11 00:00:00 2023-04-11 00:00:00 Case Management Chayo Juarez [facility] [id number] 350.1.13.10 4.2.7.2.686 [id number] 134 [id number] [facility] 2023-04-09 09:00:00 2023-04-09 09:13:18 Outpatient R TATIANAELVA ARANDA TATIANAMERITRUEELVA SANTIAGO [facility] [id number] [facility] 2023-04-09 09:00:00 2023-04-09 09:13:18 [facility] [id number] 350.1.13.10 4.2.7.2.686 [id number] 134 [id number] [facility] 2023-04-08 22:28:00 2023-04-09 00:50:00 Emergency X ANGILIZETTE SARAH [facility] [id number] [facility] 2023-04-08 22:28:00 2023-04-09 00:50:00 Emergency Sarah Molina [facility] 1..840.114 350.1.13.10 4.2.7.2.686 [id number] [facility] 2023-04-02 15:00:00 2023-04-02 15:00:00 Outpatient R ZACKELVA SANTIAGO TATIANAMERITRUEELVA SANTIAGO [facility] [id number] [facility] 2022-11-28 11:00:00 2022-11-28 11:00:00 Outpatient R LILLIANELVA TATIANAMERIGUANAKO ELVA [facility] [id number] [facility] 2022-09-18 09:30:00 2022-09-18 10:18:01 Office Visit TatianaElva aranda [facility] 1.2.840.114 350.1.13.10 4.2.7.2.686 [id number] 134 [id number] [facility] 2022-09-18 09:30:00 2022-09-18 10:18:01 Outpatient R LILLIAN BESSIENAMAN LILLIAN ELVA [facility] [id number] [facility] 2022-09-18 09:30:00 2022-09-18 09:30:00 [facility] [id number] [facility] 2022-09-18 00:00:00 2022-09-18 00:00:00 Orders Only Doctor Unassigned, [place] [facility] 1..114 350.1.13.10 4.2.7.2.686 [id number] [facility] 2022-09-11 00:00:00 2022-09-11 00:00:00 Pre Visit Outreach Mita Waldron 1.84.114 350.1.13.10 4.2.7.2.686 [id number] [facility] 2022-05-18 11:00:00 2022-05-18 11:10:43 Outpatient R LILLIAN [facility] [id number] [facility] 2022-05-18 11:00:00 2022-05-18 11:10:43 Office Visit Elva Snyder [facility] 1.84.114 350.1.13.10 4.2.7.2.686 [id number] 134 [id number] [facility] 2022-05-01 14:00:00 2022-05-01 15:40:38 Out[facility]IAN [facility] [id number] [facility] 2022-05-01 14:00:00 2022-05-01 15:40:38 Office Visit Elva Snyder [facility] 1.84.114 350.1.13.10 4.2.7.2.686 [id number] 134 [id number] [facility] 2021-11-21 00:00:00 2021-11-21 00:00:00 [facility] 1.2.840.114 350.1.13.10 4.2.7.2.686 [id number] 134 [id number] [facility] 2021-09-30 00:00:00 2021-09-30 00:00:00 [facility] [place] 1.2.840.114 350.1.13.10 4.2.7.2.686 [id number] [facility] 2021-09-19 00:00:00 2021-09-19 00:00:00 [facility] 1.2.840.114 350.1.13.10 4.2.7.2.686 [id number] 134 [id number] [facility] 2021-09-19 00:00:00 2021-09-19 00:00:00 [facility] 1.2.840.114 350.1.13.10 4.2.7.2.686 [id number] 134 [id number] [facility] 2021-09-16 14:00:00 2021-09-16 14:53:30 Office Visit Elva Snyder [facility] 1.2.840.114 350.1.13.10 4.2.7.2.686 [id number] [facility] 2021-09-16 14:00:00 2021-09-16 14:53:30 Outpatient R SPENCER CASTILLO [facility] [id number] [facility] 2021-09-16 14:00:00 2021-09-16 14:53:30 Office Visit Elva Snyder [facility] 1.2.840.114 350.1.13.10 4.2.7.2.686 [id number] 134 [id number] [facility] 2021-09-16 14:00:00 2021-09-16 14:53:30 Outpatient R CASTILLOSPENCER [facility] [id number] [facility] Results Test Description Test Time Test Comments Results Result Co mments Source [id number] 14:06:00* Test Item Value Reference Range Interpretation Comme nts POCT PREG (test code = 1605) Negative On board controls acceptable with C Line (test code = 3574) Yes POCT PREG LOT # (test code = 3575) POCT PREG TEST DATE ( test code = 3576) [facility] [id number] 05:20:00* Test Item Value Reference Range Interpretation Comme nts POCT PREG (test code = 1605) Negative On board controls acceptable with C Line (test code = 3574) Yes POCT PREG LOT # (test code = 3575) [id number] POCT PREG TEST DATE ( test code = 3576) 2024 Lab Interpretation (test cod e = 86516-5) Normal [facility], NAAT, [id number] 18:01:58* Test Item Value Reference Range Interpretation Comme nts CHLAMYDIA, NAAT, URINE (test code = 21094) NEGATIVE NEGATIVE Testing is perfo rmed with Mitch CARMELITA 6800/8800 systems usingreal-time polymerase chain reaction (PCR) method. A negative result does not exclude low level infection, specimensampling error, or collection error. GONORRHEA, NAAT, URINE (test code = 73833) NEGATIVE NEGATIVE Testing is perfo rmed with Mitch CARMELITA 6800/8800 systems usingreal-time polymerase chain reaction (PCR) method. A negative result does not exclude low level infection, specimensampling error, or collection error. TRICHOMONAS, NAAT, [id number] 15:41:57* Test Item Value Reference Range Interpretation Comme nts TRICHOMONAS, NAAT, URINE (test code = 51219) NEGATIVE NEGATIVE Testing is perfo rmed with Mitch CARMELITA 6800/8800 method usingreal-time polymerase chain reaction (PCR) method. A negative result does not exclude low level infection, specimensampling error, or collection error. HERPES SIMPLEX AB, [id number] 14:19:52* Test Item Value Reference Range Interpretation [facility] HERPES SIMPLEX AB, IgM (test code = 30067) 0.89 INDEX SEE BELOW INTERPRETATION U NITS RANGE ----- ----- NEGATIVE INDEX <=0.89 EQUIVOCAL INDEX 0.90-1.09 POSITIVE INDEX >=1.10 HIV 1/2 4TH GEN, RFLX [id number] 04:18:51* Test Item Value Reference Range Interpretation Comme [facility] HIV 1/2 4TH GEN, RFLX CONF ( test code = 3514) NON-REACTIVE NON-REACTIVE HEPATITIS PANEL, [id number] 04:18:51* Test Item Value Reference [facility] IgM (test code = 32200) NON-REACTIVE NON-REACTIVE HEPATITIS B CORE IgM (test code = 4644) NON-REACTIVE NON-REACTIVE HEPATITIS B SURF AG (test code = 2739) NON-REACTIVE NON-REACTIVE HEPATITIS C ANTIBODY (test code = 4675) NON-REACTIVE NON-REACTIVE INTERPRETATION HEPATITIS A: (test code = 2552) (NOTE) Hepatitis A serology shows no evidence of acute hepatitis A. INTERPRETATION HEPATITIS B: (test code = 06115) (NOTE) Hepatitis B serology shows no evidence of acute hepatitis B andno indication of exposure to hepatitis B virus in the previous julio césar eight months. INTERPRETATION HEPATITIS C: (test code = 04147) (NOTE) Hepatitis C serology shows no evidence of exposure to hepatitisC virus at this time. It can take up to 12 months after exposure tothe hepatitis C virus for antibodies to become detectable in the blood in certain patients. HERPES SIMPLEX 1/2 AB, IgG [id number] 04:18:51* Test Item Value Reference Range [facility] 1 AB, IgG (test code = 35402) 0.030 INDEX SEE BELOW INTERPRETATION U NITS RANGE ----- ----- NON-REACTIVE INDEX <1.000 REACTIVE INDEX >=1.000 HERPES SIMPLEX 2 AB, IgG (test code = 59852) 0.077 INDEX SEE BELOW INTERPRETATION U NITS RANGE ----- ----- NON-REACTIVE INDEX <1.000 REACTIVE INDEX >=1.000 UNLESS OTHERWISE INDICATED, ALL TESTING PERFORMED AT [facility] [address] [place] [id number] RESEARCH METHODOLOGIST: TSERING SOSA M.D. CLIA NUMBER [id number] [facility] [place]. [id number] RPR REFLEX TO T. PALLIDUM - [id number] 03:20:24* Test Item Value Reference Range Interpretation Comme nts RPR (test code = 32617) NON-REACTIVE NON-REACTIVE RPR TITER (test code = 3500) NOT INDIC. TITER NOT INDIC. POCT [id number] 16:05:00* Test Item Value Reference Range Interpretation Comme nts POCT PREG (test code = 1605) Negative On board controls acceptable with C Line (test code = 3574) Yes POCT PREG LOT # (test code = 3575) POCT PREG TEST DATE ( test code = 3576) [facility] [id number] 16:05:00* Test Item Value Reference Range Interpretation Comme nts POCT PREG (test code = 1605) Negative On board controls acceptable with C Line (test code = 3574) Yes POCT PREG LOT # (test code = 3575) POCT PREG TEST DATE ( test code = 3576) [facility] [id number] 19:14:00* Test Item Value Reference Range Interpretation Comme nts POCT PREG (test code = 1605) Negative On board controls acceptable with C Line (test code = 3574) Yes POCT PREG LOT # (test code = 3575) POCT PREG TEST DATE ( test code = 3576) [facility] [id number] 19:14:00* Test Item Value Reference Range Interpretation Comme nts POCT PREG (test code = 1605) Negative On board controls acceptable with C Line (test code = 3574) Yes POCT PREG LOT # (test code = 3575) POCT PREG TEST DATE ( test code = 3576) [facility]
--- NOTE | 2023-08-27 17:40 | ER ---
Nurse's Notes [facility] Name: Michelle Conner Age: 23 yrs Sex: Female : 2000 Arrival Date: 08/27/2023 Time: 15:52 Bed 11 Private MD: Diagnosis: Laceration without foreign body of finger without damage to nail Presentation: 08/27 16:15 Chief complaint: Patient states: cut right pointer finger with eyebrow razor. ko1 Coronavirus screen: At this time, the client does not indicate any symptoms associated with coronavirus-19. Ebola Screen: No symptoms or risks identified at this time. Initial Sepsis Screen: Does the patient meet any 2 criteria? No. Patient's initial sepsis screen is negative. Does the patient have a suspected source of infection? No. Patient's initial sepsis screen is negative. Risk Assessment: Do you want to hurt yourself or someone else? Patient reports no desire to harm self or others. Onset of symptoms was August 27, 2023. Care prior to arrival: Bleeding of injury controlled. Injury dressed. 16:15 Method Of Arrival: Ambulatory ko1 16:15 Acuity: NAKITA 4 ko1 Triage Assessment: 16:44 General: Appears in no apparent distress. comfortable, Behavior is calm, cooperative, ko1 appropriate for age. Pain: Complains of pain in palmar aspect of middle phalanx of right index finger. Musculoskeletal: Circulation, motion, and sensation intact. Injury Description: Laceration sustained to palmar aspect of middle phalanx of right index finger moderate bleeding noted at this time. Historical: - Allergies: 16:44 PENICILLINS; ko1 - PMHx: 16:44 ADD/ADHD; Migraines; ko1 - PSHx: 16:44 Tonsillectomy; ko1 - Immunization history:: Adult Immunizations up to date, Last tetanus immunization: < 5 years ago. - Social history:: Smoking status: Patient denies any tobacco usage or history of. Screenin:46 [facility] ED Fall Risk Assessment (Adult) History of falling in the last 3 months, ko1 including since admission No falls in past 3 months (0 pts). Abuse screen: Denies threats or abuse. Denies injuries from another. Nutritional screening: No deficits noted. Tuberculosis screening: No symptoms or risk factors identified. Assessment: 16:46 Pain: Complains of pain in palmar aspect of middle phalanx of right index finger. ko1 Musculoskeletal: Circulation, motion, and sensation intact. Vital Signs: 16:15 BP 138 / 83; Pulse 58; Resp 16; Temp 98.1; Pulse Ox 100% on R/A; ko1 17:46 BP 132 / 77; Pulse 74; Resp 18; Pulse Ox 98% ; ko1 ED Course: 15:55 Patient arrived in ED. im 15:57 [facility]C [facility] sb4 15:57 Raphael Martinez DO is Attending Physician. sb4 16:16 Kianna Brito, RN is Primary Nurse. ko1 16:44 Triage completed. ko1 16:44 Arm band placed on right wrist. Patient placed in an exam room, on a stretcher, on ko1 pulse oximetry, Patient notified of wait time. 16:46 Patient has correct armband on for positive identification. Bed in low position. Call ko1 light in reach. Pulse ox on. NIBP on. Door closed. Noise minimized. Lights dimmed. Warm blanket given. 16:46 Patient did not have IV access during this emergency room visit. ko1 17:40 Provided Education on: suture care. ko1 17:40 Assist provider with laceration repair on palmar aspect of middle phalanx of right ko1 index finger using sutures. Set up tray. Performed by Lisa Hernandez PA-C. Administered Medications: 17:35 Drug: Lidocaine Infiltration (1 %) 5 ml 5 ml Infiltration once; to bedside Volume: 5 ko1 ml; Route: Infiltration; Medication: 17:40 VIS not applicable for this client. ko1 Outcome: 17:39 Discharge ordered by . sb4 17:46 Discharged to home ambulatory, with family, ko1 17:46 Condition: stable 17:46 Discharge instructions given to patient, Instructed on discharge instructions, follow up and referral plans. wound care, Demonstrated understanding of instructions, follow-up care, wound care, 17:57 Patient left the ED. ko1 Signatures: Kianna Brito, RN RN ko1 Lisa Hernandez PA-C PA-C sb4 Kena Love im
--- NOTE | 2023-08-27 17:40 | EDPHYS ---
Physician Documentation [facility] Name: Michelle Conner Age: 23 yrs Sex: Female : 2000 Arrival Date: 08/27/2023 Time: 15:52 Bed 11 Private MD: ED Physician Raphael Martinez HPI: 08/27 16:20 This 23 yrs old Black Female presents to ER via Unassigned with complaints of Finger sb4 Injury - laceration Right hand. 16:20 The patient has a laceration occurred at home, and there are no complicating factors. sb4 The injury was accidental. 16:21 The laceration(s) is(are) located on the palmar aspect of middle phalanx of right index sb4 finger. Onset: The symptoms/episode began/occurred just prior to arrival. Associated signs and symptoms: The patient has no apparent associated signs or symptoms. The patient has not experienced similar symptoms in the past. The patient has not recently seen a physician. Historical: - Allergies: 16:44 PENICILLINS; ko1 - PMHx: 16:44 ADD/ADHD; Migraines; ko1 - PSHx: 16:44 Tonsillectomy; ko1 - Immunization history:: Adult Immunizations up to date, Last tetanus immunization: < 5 years ago. - Social history:: Smoking status: Patient denies any tobacco usage or history of. ROS: 16:21 Constitutional: Negative for fever, chills, and weight loss, sb4 16:21 Skin: Positive for laceration(s), of the palmar aspect of middle phalanx of right index finger, 16:21 All other systems are negative, Exam: 16:21 Constitutional: This is a well developed, well nourished patient who is awake, alert, sb4 and in no acute distress. Head/Face: Normocephalic, atraumatic. Eyes: Extra-ocular motions intact. Periorbital areas with no swelling, redness, or edema. ENT: Mucous membranes moist. MS/ Extremity: Pulses equal, no cyanosis. Neurovascular intact. Full, normal range of motion. Neuro: Awake and alert, GCS 15, oriented to person, place, time, and situation. Motor strength 5/5 in all extremities. Sensory grossly intact. 16:21 Skin: injury, laceration(s), the wound is approximately 2 cm(s), with a depth of 1 cm(s), of the palmar aspect of middle phalanx of right index finger, that can be described as clean, no foreign body, linear, without bleeding, Vital Signs: 16:15 BP 138 / 83; Pulse 58; Resp 16; Temp 98.1; Pulse Ox 100% on R/A; ko1 17:46 BP 132 / 77; Pulse 74; Resp 18; Pulse Ox 98% ; ko1 Laceration: 17:38 Wound Repair of 3cm ( 1.2in ) subcutaneous laceration to palmar aspect of middle sb4 phalanx of right index finger. Distal neuro/vascular/tendon intact. Anesthesia: Local anesthetic administered with 3 mls of 1% lidocaine. Wound prep: Moderate cleansing with betadine by me, Wound irrigation with saline by me. Skin closed with 2 5-0 Prolene using simple sutures and sterile technique. Dressed with Neosporin, bandaid. Patient tolerated well. MDM: 16:17 Patient medically screened. sb4 17:38 Data reviewed: vital signs, nurses notes, and as a result, I will discharge patient. sb4 Counseling: I had a detailed discussion with the patient and/or guardian regarding the historical points, exam findings, and any diagnostic results supporting the discharge/admit diagnosis, the need for outpatient follow up, in 10-14 days for suture removal, to return to the emergency department if symptoms worsen or persist or if there are any questions or concerns that arise at home. Administered Medications: 17:35 Drug: Lidocaine Infiltration (1 %) 5 ml 5 ml Infiltration once; to bedside Volume: 5 ko1 ml; Route: Infiltration; Disposition: 17:06 I was immediately available on-site in the Emergency Department for consultation in the ms3 care of the patient. Disposition Summary: 08/27/23 17:39 Discharge Ordered Notes: Location: Home sb4 Problem: new sb4 Symptoms: have improved sb4 Condition: Stable sb4 Diagnosis - Laceration without foreign body of finger without damage to nail sb4 Followup: sb4 - With: Private Physician - When: 10 - 14 days - Reason: Staple/Suture removal Discharge Instructions: - Discharge Summary Sheet sb4 - Laceration Care, Adult, [id number] sb4 Forms: - Medication Reconciliation Form sb4 - Thank You Letter sb4 - Antibiotic Education sb4 - Prescription Opioid Use sb4 - Patient Portal Instructions sb4 - Leadership Thank You Letter sb4 Signatures: Raphael Martinez DO DO ms3 Kianna Brito, RN RN ko1 Lisa Hernandez PA-C PA-C sb4
[2023-08-27 18:17] VITALS: BP 132/77; TEMP 98.1; O2SAT 98
== END ==
LOC: ER 15:52
PROC: 0HQFXZZ Repair Right Hand Skin, External Approach (ICD-10-PCS; principal; 2023-08-27)
DX: S61.210A Laceration without foreign body of right index finger without damage to nail, initial encounter (principal); Z88.0 Allergy status to penicillin
CPT/HCPCS: 99284; 12002; J2001

== ENCOUNTER 2023-11-07 10:58 | Emergency (ER) | payer BC ==
--- OUTSIDE RECORDS SUMMARY | 2023-11-07 11:02 | XMS REPORT | Continuity of Care Document ---
Author Name Unknown Address [address] [place] [address] 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 NISH COOMBSH Primary Care Physician UnavailSPENCER Lopez Attending Clinician Unavailable HAMILTON BETTENCOURT Attending Clinician UnavailChayo Moraes MD Attending Clinician [phone] ELVA SNYDER Attending Clinician ELVA Baker Attending Clinician Deanna Lee NP Attending Clinician [phone] DEANNA OLGUIN Attending Clinician Unavailable Doctor Unassigned, [place] Attending Clinician U Mita Mallory MA Attending Clinician Spencer Oleary MD Attending Clinician [phone] Payers Payer Name Policy Type Policy Number Effective Date Expirati on Date Source [facility] O [id number] 2023 00:00:00 [facility] [place] [facility] [id number] 2023 00[place] [facility] [id number] 2019 00:00:00 Problems Condition Name Condition Details Condition Category Status Onset Date Resolution Date Last Treatment Date Treating Clinician Comments Source Oral contracept tamera pill surveillan ce Oral contracept tamera pill surveillan ce Disease Active 04-09 00:00: 00 [facility] BMI 30.0-30.9, adult BMI 30.0-30.9, adult Disease Active 09-18 00:00: 00 [facility] Encounter for surveillan ce of contracept yoselyn, unspecifie d contracept tamera Encounter for surveillan ce of contracept yoselyn, unspecifie d contracept tamera Disease Active 2021-07 00:00: 00 [facility] Allergic reaction, initial encounter Allergic reaction, initial encounter Disease Active 2021-07 00:00: 00 [facility] BMI 27.0-27.9, adult BMI 27.0-27.9, adult Disease Active 2021-07 00:00: 00 [facility] Screening for venereal disease Screening for venereal disease Disease Active 09-16 00:00: 00 [facility] Vaginal discharge Vaginal discharge Disease Active 09-16 00:00: 00 [facility] Allergies, Adverse Reactions, Alerts Allergy Name Allergy Type Status Severity Reaction(s) Onset Date Inactive Date Treating Clinician Comments Source PENICILL INS Drug Class Active High Anaphylaxis 04-08 00:00: 00 [facility] Penicill ins Drug Allergy Active Anaphylaxis 04-08 00:00: 00 [facility] PENICILL IN DRUG INGREDI Active High Anaphylaxis 2014-07 00:00: 00 [facility] Penicill in Propensi ty to adverse reaction s Active Anaphylaxis 2014-07 00:00: 00 [facility] NO KNOWN ALLERGIE S Drug Class Active [facility] Social History Social Habit Start Date Stop Date Quantity Comments Source History of tobacco use Cigar Smoker [facility] History SDOH Alcohol Frequency [facility] History SDOH Alcohol Std Drinks [facility] History SDOH Alcohol Binge [facility] 2023-04-09 00:00:00 2023-04-09 00:00:00 Current drinker of alcohol (finding) [facility] Exposure to SARS-CoV-2 (event) 2022-09-08 00:00:00 2022-09-18 09:24:00 Not sure [facility] Tobacco use and exposure 2022-09-18 00:00:00 2022-09-18 00:00:00 Smokeless tobacco non-user [facility] Tobacco Comment 2022-05-01 00:00:00 2022-05-01 00:00:00 smoked 1-2 cigars per day [facility] Alcohol Comment 2021-09-16 00:00:00 2021-09-16 00:00:00 occasionally [facility] History of Social function 2021-09-16 00:00:00 2021-09-16 00:00:00 [facility] Sex Assigned At 2001 00:00:00 2001 00:00:00 [facility] Smoking Status Start Date Stop Date Source Tobacco smoking consumption unknown [facility] Ex-smoker 2022-09-18 00:00:00 2022-09-18 00:00:00 [facility] Medications Ordered Medication Name Filled Medication Name Start Date Stop Date Current Medication? Ordering Clinician Indication Dosage Frequency Signature (SIG) Comments Components Source metroNIDAZO LE 500 mg tablet 04-11 00:00: 00 Yes [id number] 500mg Take 1 tablet by mouth every 12 (twelve) hours. [facility] acetaminoph en-codeine (TYLENOL #3) 300-30 mg tablet 1 tablet 04-09 06:30: 00 04-09 18:29 :00 No 1{tbl} 1 tablet, Oral, ONCE, 1 dose, On Sun04/09/23 at 0130, Routine [facility] dexamethaso ne sod phos PF injection 10 mg 04-09 06:30: 00 04-09 18:29 :00 No 10mg 10 mg, Intramuscu lar, ONCE, 1 dose, On Sun04/09/23 at 0130, Routine [facility] ipratropium -albuteroL (DUONEB) 0.5 mg-3 mg(2.5 mg base)/3 mL nebulizer solution 3 mL 04-09 06:15: 04-09 18:14 :00 No 3mL 3 mL, Inhalation , ONCE NOW, 1 dose, On Sun04/09/23 at 0115, Routine [facility] norgestimat e-ethinyl estradioL (ORTHO TRI-CYCLEN, ,) 0.18/0.215/ 0.25 mg-35 mcg (28) tablet 04-09 00:00: 00 Yes [id number] 1{tbl} Take 1 tablet by mouth in the morning. [facility] doxycycline hyclate 100 mg capsule 04-09 00:00: 00 Yes [id number] 100mg Take 1 capsule by mouth in the morning and 1 capsule in the evening. [facility] methylPREDN ISolone 4 mg tablets 04-09 00:00: 00 Yes [id number] Take by mouth SEE-INSTRU CTIONS. follow package directions [facility] albuterol 90 mcg/actuati on inhaler 04-09 00:00: 00 Yes [id number] 2{puff} Inhale 2 Puffs every 4 (four) hours as needed for Wheezing or Shortness of Breath. [facility] codeine-gua ifenesin 10-100 mg/5 mL oral solution 04-09 00:00: 00 04-17 04:59 :00 No 10mL Take 10 mL by mouth every 6 (six) hours as needed for Cough for up to 7 days. Indication s: cough [facility] norgestimat e-ethinyl estradioL (ORTHO TRI-CYCLEN, ,) 0.18/0.215/ 0.25 mg-35 mcg (28) tablet 09-18 00:00: 00 04-09 00:00 :00 No [id number] 1{tbl} Take 1 tablet by mouth in the morning. [facility] norgestimat e-ethinyl estradioL (ORTHO TRI-CYCLEN, 28,) 0.18/0.215/ 0.25 mg-35 mcg (28) tablet 2021-07 00:00: 00 09-18 00:00 :00 No [id number] 1{tbl} Take 1 tablet by mouth in the morning. [facility] methylPREDN ISolone 4 mg tablets 2021-07 1- 00:00: 00 05-25 05:59 :00 No [id number] Take by mouth SEE-INSTRU CTIONS for 6 days. follow package directions [facility] norelgestro min-ethinyl estradiol 150-35 mcg/24 hr patch 2021-07 0-17 00:00: 00 05-18 00:00 :00 No [id number] 1{patch } Apply 1 Patch to skin weekly. [facility] triamcinolo ne acetonide 0.1 % ointment 08-25 00:00: 00 09-16 00:00 :00 No APPLY 1 TO 2 TIMES A DAY [facility] traZODone 50 mg tablet 08-18 00:00: 00 09-16 00:00 :00 No TAKE BY MOUTH 1/2 TABLET AT BEDTIME FOR 4 DAYS THEN 1 TABLET AT BEDTIME [facility] pantoprazol e (PROTONIX) 40 mg EC tablet 2014-07 00:00: 00 09-16 00:00 :00 No [facility] montelukast (SINGULAIR) 10 mg tablet 2014-07 0 00:00: 00 09-16 00:00 :00 No [facility] VYVANSE 60 mg capsule 2014-07 0 00:00: 00 09-16 00:00 :00 No [facility] amitriptyli ne (ELAVIL) 50 mg tablet 2014-07 00:00: 00 09-16 00:00 :00 No [facility] OXcarbazepi ne (TRILEPTAL) 300 mg tablet 2014-07 00:00: 00 09-16 00:00 :00 No [facility] QUEtiapine (SEROQUEL) 100 mg tablet 04-07 00:00: 00 09-16 00:00 :00 No [facility] PROAIR HFA 90 mcg/actuati on inhaler 03-03 00:00: 00 09-16 00:00 :00 No [facility] Immunizations Ordered Immunization Name Filled Immunization Name Date Status Comments Source TD 2019-04-25 00:00:00 Completed [facility] TDAP 2019-04-25 00:00:00 Completed [facility] TDAP 2019-04-25 00:00:00 Completed [facility] TDAP 2019-04-25 00:00:00 Completed [facility] Meningococcal Polysaccharide (groups A, C, Y and W-135) conjugate vaccine (MCV4P) 2019-02-25 00:00:00 Completed [facility] TDAP 2019-02-25 00:00:00 Completed [facility] Meningococcal Polysaccharide (groups A, C, Y and W-135) conjugate vaccine (MCV4P) 2019-02-25 00:00:00 Completed [facility] TDAP 2019-02-25 00:00:00 Completed [facility] Meningococcal Polysaccharide (groups A, C, Y and W-135) conjugate vaccine (MCV4P) 2019-02-25 00:00:00 Completed [facility] TDAP 2019-02-25 00:00:00 Completed [facility] Meningococcal Polysaccharide (groups A, C, Y and W-135) conjugate vaccine (MCV4P) 2019-02-25 00:00:00 Completed [facility] TDAP 2019-02-25 00:00:00 Completed [facility] Influenza Virus Vaccine Quad .5 mL IM 6+ MO 2017-06-06 00:00:00 Completed [facility] Influenza Virus Vaccine Quad .5 mL IM 6+ MO 2017-06-06 00:00:00 Completed [facility] Influenza Virus Vaccine Quad .5 mL IM 6+ MO 2017-06-06 00:00:00 Completed [facility] Influenza Virus Vaccine Quad .5 mL IM 6+ MO 2017-06-06 00:00:00 Completed [facility] Influenza Virus Vaccine Quad .5 mL IM 6+ MO 2016-05-02 00:00:00 Completed [facility] HPV 2016-05-02 00:00:00 Completed [facility] Influenza Virus Vaccine Quad .5 mL IM 6+ MO 2016-05-02 00:00:00 Completed [facility] HPV 2016-05-02 00:00:00 Completed [facility] Influenza Virus Vaccine Quad .5 mL IM 6+ MO 2016-05-02 00:00:00 Completed [facility] HPV 2016-05-02 00:00:00 Completed [facility] Influenza Virus Vaccine Quad .5 mL IM 6+ MO 2016-05-02 00:00:00 Completed [facility] HPV 2016-05-02 00:00:00 Completed [facility] Influenza Virus Vaccine Quad Nasal 2015-05-07 00:00:00 Completed [facility] Influenza Virus Vaccine Quad Nasal 2015-05-07 00:00:00 Completed [facility] Influenza Virus Vaccine Quad Nasal 2015-05-07 00:00:00 Completed [facility] Influenza Virus Vaccine Quad Nasal 2015-05-07 00:00:00 Completed [facility] Influenza Virus Vaccine Quad IM Multi-dose 6+ MO 2014-05-09 00:00:00 Completed [facility] Influenza Virus Vaccine Quad IM Multi-dose 6+ MO 2014-05-09 00:00:00 Completed [facility] Influenza Virus Vaccine Quad IM Multi-dose 6+ MO 2014-05-09 00:00:00 Completed [facility] Influenza Virus Vaccine Quad IM Multi-dose 6+ MO 2014-05-09 00:00:00 Completed [facility] HPV 2014-01-07 00:00:00 Completed [facility] HPV 2014-01-07 00:00:00 Completed [facility] HPV 2014-01-07 00:00:00 Completed [facility] HPV 2014-01-07 00:00:00 Completed [facility] HPV 2013-09-23 00:00:00 Completed [facility] Meningococcal Polysaccharide (groups A, C, Y and W-135) conjugate vaccine (MCV4P) 2013-09-23 00:00:00 Completed [facility] TDAP 2013-09-23 00:00:00 Completed [facility] Varicella (varivax)(chicken pox) 2013-09-23 00:00:00 Completed [facility] HPV 2013-09-23 00:00:00 Completed [facility] Meningococcal Polysaccharide (groups A, C, Y and W-135) conjugate vaccine (MCV4P) 2013-09-23 00:00:00 Completed [facility] TDAP 2013-09-23 00:00:00 Completed [facility] Varicella (varivax)(chicken pox) 2013-09-23 00:00:00 Completed [facility] HPV 2013-09-23 00:00:00 Completed [facility] Meningococcal Polysaccharide (groups A, C, Y and W-135) conjugate vaccine (MCV4P) 2013-09-23 00:00:00 Completed [facility] TDAP 2013-09-23 00:00:00 Completed [facility] Varicella (varivax)(chicken pox) 2013-09-23 00:00:00 Completed [facility] HPV 2013-09-23 00:00:00 Completed [facility] Meningococcal Polysaccharide (groups A, C, Y and W-135) conjugate vaccine (MCV4P) 2013-09-23 00:00:00 Completed [facility] TDAP 2013-09-23 00:00:00 Completed [facility] Varicella (varivax)(chicken pox) 2013-09-23 00:00:00 Completed [facility] HEPATITIS A 2011-02-24 00:00:00 Completed [facility] HEPATITIS A 2011-02-24 00:00:00 Completed [facility] HEPATITIS A 2011-02-24 00:00:00 Completed [facility] HEPATITIS A 2011-02-24 00:00:00 Completed [facility] DTaP, Unspecified Formulation 2005-08-14 00:00:00 Completed [facility] HEPATITIS A 2005-08-14 00:00:00 Completed [facility] MMR 2005-08-14 00:00:00 Completed [facility] Pneumococcal 7 Conjugate, PCV7 (Prevnar7) 2005-08-14 00:00:00 Completed [facility] IPV 2005-08-14 00:00:00 Completed [facility] DTaP, Unspecified Formulation 2005-08-14 00:00:00 Completed [facility] HEPATITIS A 2005-08-14 00:00:00 Completed [facility] MMR 2005-08-14 00:00:00 Completed [facility] Pneumococcal 7 Conjugate, PCV7 (Prevnar7) 2005-08-14 00:00:00 Completed [facility] IPV 2005-08-14 00:00:00 Completed [facility] DTaP, Unspecified Formulation 2005-08-14 00:00:00 Completed [facility] HEPATITIS A 2005-08-14 00:00:00 Completed [facility] MMR 2005-08-14 00:00:00 Completed [facility] Pneumococcal 7 Conjugate, PCV7 (Prevnar7) 2005-08-14 00:00:00 Completed [facility] IPV 2005-08-14 00:00:00 Completed [facility] DTaP, Unspecified Formulation 2005-08-14 00:00:00 Completed [facility] HEPATITIS A 2005-08-14 00:00:00 Completed [facility] MMR 2005-08-14 00:00:00 Completed [facility] Pneumococcal 7 Conjugate, PCV7 (Prevnar7) 2005-08-14 00:00:00 Completed [facility] IPV 2005-08-14 00:00:00 Completed [facility] DTaP, Unspecified Formulation 2002-08-18 00:00:00 Completed [facility] HIB 4 Dose Schedule 2002-08-18 00:00:00 Completed [facility] MMR 2002-08-18 00:00:00 Completed [facility] Pneumococcal 7 Conjugate, PCV7 (Prevnar7) 2002-08-18 00:00:00 Completed [facility] Varicella (varivax)(chicken pox) 2002-08-18 00:00:00 Completed [facility] DTaP, Unspecified Formulation 2002-08-18 00:00:00 Completed [facility] HIB 4 Dose Schedule 2002-08-18 00:00:00 Completed [facility] MMR 2002-08-18 00:00:00 Completed [facility] Pneumococcal 7 Conjugate, PCV7 (Prevnar7) 2002-08-18 00:00:00 Completed [facility] Varicella (varivax)(chicken pox) 2002-08-18 00:00:00 Completed [facility] DTaP, Unspecified Formulation 2002-08-18 00:00:00 Completed [facility] HIB 4 Dose Schedule 2002-08-18 00:00:00 Completed [facility] MMR 2002-08-18 00:00:00 Completed [facility] Pneumococcal 7 Conjugate, PCV7 (Prevnar7) 2002-08-18 00:00:00 Completed [facility] Varicella (varivax)(chicken pox) 2002-08-18 00:00:00 Completed [facility] DTaP, Unspecified Formulation 2002-08-18 00:00:00 Completed [facility] HIB 4 Dose Schedule 2002-08-18 00:00:00 Completed [facility] MMR 2002-08-18 00:00:00 Completed [facility] Pneumococcal 7 Conjugate, PCV7 (Prevnar7) 2002-08-18 00:00:00 Completed [facility] Varicella (varivax)(chicken pox) 2002-08-18 00:00:00 Completed [facility] Hep B, Adol or Pedi Dosage 2002-07-05 00:00:00 Completed [facility] Hep B, Adol or Pedi Dosage 2002-07-05 00:00:00 Completed [facility] Hep B, Adol or Pedi Dosage 2002-07-05 00:00:00 Completed [facility] Hep B, Adol or Pedi Dosage 2002-07-05 00:00:00 Completed [facility] Hep B, Adol or Pedi Dosage 2002-05-05 00:00:00 Completed [facility] IPV 2002-05-05 00:00:00 Completed [facility] Hep B, Adol or Pedi Dosage 2002-05-05 00:00:00 Completed [facility] IPV 2002-05-05 00:00:00 Completed [facility] Hep B, Adol or Pedi Dosage 2002-05-05 00:00:00 Completed [facility] IPV 2002-05-05 00:00:00 Completed [facility] Hep B, Adol or Pedi Dosage 2002-05-05 00:00:00 Completed [facility] IPV 2002-05-05 00:00:00 Completed [facility] DTaP, Unspecified Formulation 2002-01-22 00:00:00 Completed [facility] HIB 4 Dose Schedule 2002-01-22 00:00:00 Completed [facility] Pneumococcal 7 Conjugate, PCV7 (Prevnar7) 2002-01-22 00:00:00 Completed [facility] DTaP, Unspecified Formulation 2002-01-22 00:00:00 Completed [facility] HIB 4 Dose Schedule 2002-01-22 00:00:00 Completed [facility] Pneumococcal 7 Conjugate, PCV7 (Prevnar7) 2002-01-22 00:00:00 Completed [facility] DTaP, Unspecified Formulation 2002-01-22 00:00:00 Completed [facility] HIB 4 Dose Schedule 2002-01-22 00:00:00 Completed [facility] Pneumococcal 7 Conjugate, PCV7 (Prevnar7) 2002-01-22 00:00:00 Completed [facility] DTaP, Unspecified Formulation 2002-01-22 00:00:00 Completed [facility] HIB 4 Dose Schedule 2002-01-22 00:00:00 Completed [facility] Pneumococcal 7 Conjugate, PCV7 (Prevnar7) 2002-01-22 00:00:00 Completed [facility] DTaP, Unspecified Formulation 2001 00:00:00 Completed [facility] HIB 4 Dose Schedule 2001 00:00:00 Completed [facility] Pneumococcal 7 Conjugate, PCV7 (Prevnar7) 2001 00:00:00 Completed [facility] IPV 2001 00:00:00 Completed [facility] DTaP, Unspecified Formulation 2001 00:00:00 Completed [facility] HIB 4 Dose Schedule 2001 00:00:00 Completed [facility] Pneumococcal 7 Conjugate, PCV7 (Prevnar7) 2001 00:00:00 Completed [facility] IPV 2001 00:00:00 Completed [facility] DTaP, Unspecified Formulation 2001 00:00:00 Completed [facility] HIB 4 Dose Schedule 2001 00:00:00 Completed [facility] Pneumococcal 7 Conjugate, PCV7 (Prevnar7) 2001 00:00:00 Completed [facility] IPV 2001 00:00:00 Completed [facility] DTaP, Unspecified Formulation 2001 00:00:00 Completed [facility] HIB 4 Dose Schedule 2001 00:00:00 Completed [facility] Pneumococcal 7 Conjugate, PCV7 (Prevnar7) 2001 00:00:00 Completed [facility] IPV 2001 00:00:00 Completed [facility] DTaP, Unspecified Formulation 2001 00:00:00 Completed [facility] HIB 4 Dose Schedule 2001 00:00:00 Completed [facility] Pneumococcal 7 Conjugate, PCV7 (Prevnar7) 2001 00:00:00 Completed [facility] IPV 2001 00:00:00 Completed [facility] DTaP, Unspecified Formulation 2001 00:00:00 Completed [facility] HIB 4 Dose Schedule 2001 00:00:00 Completed [facility] Pneumococcal 7 Conjugate, PCV7 (Prevnar7) 2001 00:00:00 Completed [facility] IPV 2001 00:00:00 Completed [facility] DTaP, Unspecified Formulation 2001 00:00:00 Completed [facility] HIB 4 Dose Schedule 2001 00:00:00 Completed [facility] Pneumococcal 7 Conjugate, PCV7 (Prevnar7) 2001 00:00:00 Completed [facility] IPV 2001 00:00:00 Completed [facility] DTaP, Unspecified Formulation 2001 00:00:00 Completed [facility] HIB 4 Dose Schedule 2001 00:00:00 Completed [facility] Pneumococcal 7 Conjugate, PCV7 (Prevnar7) 2001 00:00:00 Completed [facility] IPV 2001 00:00:00 Completed [facility] Hep B, Adol or Pedi Dosage 2001 00:00:00 Completed [facility] Hep B, Adol or Pedi Dosage 2001 00:00:00 Completed [facility] Hep B, Adol or Pedi Dosage 2001 00:00:00 Completed [facility] Hep B, Adol or Pedi Dosage 2001 00:00:00 Completed [facility] Hep B, Adol or Pedi Dosage 2001 00:00:00 Completed [facility] Hep B, Adol or Pedi Dosage 2001 00:00:00 Completed [facility] Hep B, Adol or Pedi Dosage 2001 00:00:00 Completed [facility] Hep B, Adol or Pedi Dosage 2001 00:00:00 Completed [facility] DTaP, Unspecified Formulation Unknown Completed [facility] DTaP, Unspecified Formulation Unknown Completed [facility] DTaP, Unspecified Formulation Unknown Completed [facility] DTaP, Unspecified Formulation Unknown Completed [facility] DTaP, Unspecified Formulation Unknown Completed [facility] Influenza Virus Vaccine Quad .5 mL IM 6+ MO (FLUZONE/FLULAVAL/FL UARIX) Unknown Completed [facility] Influenza Virus Vaccine Quad .5 mL IM 6+ MO (FLUZONE/FLULAVAL/FL UARIX) Unknown Completed [facility] Influenza Virus Vaccine Quad IM Multi-dose 6+ MO Unknown Completed [facility] Influenza Virus Vaccine Quad Nasal (Flumist) Unknown Completed [facility] HEPATITIS A Unknown Completed [facility] HEPATITIS A Unknown Completed [facility] Hep B, Adol or Pedi Dosage Unknown Completed [facility] Hep B, Adol or Pedi Dosage Unknown Completed [facility] Hep B, Adol or Pedi Dosage Unknown Completed [facility] Hep B, Adol or Pedi Dosage Unknown Completed [facility] HIB 4 Dose Schedule Unknown Completed [facility] HIB 4 Dose Schedule Unknown Completed [facility] HIB 4 Dose Schedule Unknown Completed [facility] HIB 4 Dose Schedule Unknown Completed [facility] HPV Unknown Completed [facility] HPV Unknown Completed [facility] HPV Unknown Completed [facility] Meningococcal Polysaccharide (groups A, C, Y and W-135) conjugate vaccine (MCV4P) Unknown Completed [facility] Meningococcal Polysaccharide (groups A, C, Y and W-135) conjugate vaccine (MCV4P) Unknown Completed [facility] MMR Unknown Completed [facility] MMR Unknown Completed [facility] Pneumococcal 7 Conjugate, PCV7 (Prevnar7) Unknown Completed [facility] Pneumococcal 7 Conjugate, PCV7 (Prevnar7) Unknown Completed [facility] Pneumococcal 7 Conjugate, PCV7 (Prevnar7) Unknown Completed [facility] Pneumococcal 7 Conjugate, PCV7 (Prevnar7) Unknown Completed [facility] Pneumococcal 7 Conjugate, PCV7 (Prevnar7) Unknown Completed [facility] IPV Unknown Completed [facility] IPV Unknown Completed [facility] IPV Unknown [facility]pleted [facility] IPV Unknown Completed [facility] TDAP Unknown Completed [facility] TDAP Unknown Completed [facility] TDAP Unknown Completed [facility] Varicella (varivax)(chicken pox) Unknown Completed [facility] Varicella (varivax)(chicken pox) Unknown Completed [facility] DTaP, Unspecified Formulation Unknown Completed [facility] DTaP, Unspecified Formulation Unknown Completed [facility] DTaP, Unspecified Formulation Unknown Completed [facility] DTaP, Unspecified Formulation Unknown Completed [facility] DTaP, Unspecified Formulation Unknown Completed [facility] Influenza Virus Vaccine Quad .5 mL IM 6+ MO (FLUZONE/FLULAVAL/FL UARIX) Unknown Completed [facility] Influenza Virus Vaccine Quad .5 mL IM 6+ MO (FLUZONE/FLULAVAL/FL UARIX) Unknown Completed [facility] Influenza Virus Vaccine Quad IM Multi-dose 6+ MO Unknown Completed [facility] Influenza Virus Vaccine Quad Nasal (Flumist) Unknown Completed [facility] HEPATITIS A Unknown Completed [facility] HEPATITIS A Unknown Completed [facility] Hep B, Adol or Pedi Dosage Unknown Completed [facility] Hep B, Adol or Pedi Dosage Unknown Completed [facility] Hep B, Adol or Pedi Dosage Unknown Completed [facility] Hep B, Adol or Pedi Dosage Unknown Completed [facility] HIB 4 Dose Schedule Unknown Completed [facility] HIB 4 Dose Schedule Unknown Completed [facility] HIB 4 Dose Schedule Unknown Completed [facility] HIB 4 Dose Schedule Unknown Completed [facility] HPV Unknown Completed [facility] HPV Unknown Completed [facility] HPV Unknown Completed [facility] Meningococcal Polysaccharide (groups A, C, Y and W-135) conjugate vaccine (MCV4P) Unknown Completed [facility] Meningococcal Polysaccharide (groups A, C, Y and W-135) conjugate vaccine (MCV4P) Unknown Completed [facility] MMR Unknown Completed [facility] MMR Unknown Completed [facility] Pneumococcal 7 Conjugate, PCV7 (Prevnar7) Unknown Completed [facility] Pneumococcal 7 Conjugate, PCV7 (Prevnar7) Unknown Completed [facility] Pneumococcal 7 Conjugate, PCV7 (Prevnar7) Unknown Completed [facility] Pneumococcal 7 Conjugate, PCV7 (Prevnar7) Unknown Completed [facility] Pneumococcal 7 Conjugate, PCV7 (Prevnar7) Unknown Completed [facility] IPV Unknown Completed [facility] IPV Unknown Completed [facility] IPV Unknown [facility]pleted [facility] IPV Unknown Completed [facility] TDAP Unknown Completed [facility] TDAP Unknown Completed [facility] TDAP Unknown Completed [facility] Varicella (varivax)(chicken pox) Unknown Completed [facility] Varicella (varivax)(chicken pox) Unknown Completed [facility] DTaP, Unspecified Formulation Unknown Completed [facility] DTaP, Unspecified Formulation Unknown Completed [facility] DTaP, Unspecified Formulation Unknown Completed [facility] DTaP, Unspecified Formulation Unknown Completed [facility] DTaP, Unspecified Formulation Unknown Completed [facility] Influenza Virus Vaccine Quad .5 mL IM 6+ MO (FLUZONE/FLULAVAL/FL UARIX) Unknown Completed [facility] Influenza Virus Vaccine Quad .5 mL IM 6+ MO (FLUZONE/FLULAVAL/FL UARIX) Unknown Completed [facility] Influenza Virus Vaccine Quad IM Multi-dose 6+ MO Unknown Completed [facility] Influenza Virus Vaccine Quad Nasal (Flumist) Unknown Completed [facility] HEPATITIS A Unknown Completed [facility] HEPATITIS A Unknown Completed [facility] Hep B, Adol or Pedi Dosage Unknown Completed [facility] Hep B, Adol or Pedi Dosage Unknown Completed [facility] Hep B, Adol or Pedi Dosage Unknown Completed [facility] Hep B, Adol or Pedi Dosage Unknown Completed [facility] HIB 4 Dose Schedule Unknown Completed [facility] HIB 4 Dose Schedule Unknown Completed [facility] HIB 4 Dose Schedule Unknown Completed [facility] HIB 4 Dose Schedule Unknown Completed [facility] HPV Unknown Completed [facility] HPV Unknown Completed [facility] HPV Unknown Completed [facility] Meningococcal Polysaccharide (groups A, C, Y and W-135) conjugate vaccine (MCV4P) Unknown Completed [facility] Meningococcal Polysaccharide (groups A, C, Y and W-135) conjugate vaccine (MCV4P) Unknown Completed [facility] MMR Unknown Completed [facility] MMR Unknown Completed [facility] Pneumococcal 7 Conjugate, PCV7 (Prevnar7) Unknown Completed [facility] Pneumococcal 7 Conjugate, PCV7 (Prevnar7) Unknown Completed [facility] Pneumococcal 7 Conjugate, PCV7 (Prevnar7) Unknown Completed [facility] Pneumococcal 7 Conjugate, PCV7 (Prevnar7) Unknown Completed [facility] Pneumococcal 7 Conjugate, PCV7 (Prevnar7) Unknown Completed [facility] IPV Unknown Completed [facility] IPV Unknown Completed [facility] IPV Unknown Completed [facility] IPV Unknown Completed [facility] TDAP Unknown Completed [facility] TDAP Unknown Completed [facility] TDAP Unknown Completed [facility] Varicella (varivax)(chicken pox) Unknown Completed [facility] Varicella (varivax)(chicken pox) Unknown Completed [facility] Vital Signs Vital Name Observation Time Observation Value Comments S ource Systolic blood pressure 2023-04-09 14:06:00 135 mm[Hg] [facility] Diastolic blood pressure 2023-04-09 14:06:00 72 mm[Hg] [facility] Heart rate 2023-04-09 14:06:00 106 [facility] 2023-04-09 14:06:00 36.83 Gifty [facility] Respiratory rate 2023-04-09 14:06:00 16 /min [facility] Body height 2023-04-09 14:06:00 162.6 cm [facility] Body weight 2023-04-09 14:06:00 72.394 kg [facility] BMI 2023-04-09 14:06:00 27.40 kg/m2 [facility] Systolic blood pressure 2023-04-09 03:26:00 122 mm[Hg] [facility] Diastolic blood pressure 2023-04-09 03:26:00 75 mm[Hg] [facility] Heart rate 2023-04-09 03:26:00 62 /min Un[facility] Body temperature 2023-04-09 03:26:00 37 Gifty [facility] Respiratory rate 2023-04-09 03:26:00 16 /min [facility] Body height 2023-04-09 03:26:00 157.5 cm [facility] Body weight 2023-04-09 03:26:00 74.844 kg [facility] BMI 2023-04-09 03:26:00 30.18 kg/m2 [facility] Oxygen saturation in Arterial blood by Pulse oximetry 2023-04-09 03:26:00 97 /min [facility] Systolic blood pressure 2022-09-18 15:32:00 124 mm[Hg] [facility] Diastolic blood pressure 2022-09-18 15:32:00 87 mm[Hg] [facility] Heart rate 2022-09-18 15:32:00 82 /min [facility] Body temperature 2022-09-18 15:32:00 36.67 Gifty [facility] Respiratory rate 2022-09-18 15:32:00 16 /min [facility] Body height 2022-09-18 15:32:00 154.9 cm [facility] Body weight 2022-09-18 15:32:00 72.122 kg [facility] BMI 2022-09-18 15:32:00 30.04 kg/m2 [facility] Systolic blood pressure 2022-05-18 15:54:00 101 mm[Hg] [facility] Diastolic blood pressure 2022-05-18 15:54:00 66 mm[Hg] [facility] Heart rate 2022-05-18 15:54:00 88 /min [facility] Body temperature 2022-05-18 15:54:00 37.06 Gifty [facility] Respiratory rate 2022-05-18 15:54:00 16 /min [facility] Body height 2022-05-18 15:54:00 154.9 cm [facility] Body weight 2022-05-18 15:54:00 70.852 kg [facility] BMI 2022-05-18 15:54:00 29.51 kg/m2 [facility] Oxygen saturation in Arterial blood by Pulse oximetry 2022-05-18 15:54:00 98 /min [facility] Systolic blood pressure 2022-05-01 19:04:00 105 mm[Hg] [facility] Diastolic blood pressure 2022-05-01 19:04:00 66 mm[Hg] [facility] Heart rate 2022-05-01 19:04:00 77 /min [facility] Body temperature 2022-05-01 19:04:00 37 Gifty [facility] Respiratory rate 2022-05-01 19:04:00 16 /min [facility] Body height 2022-05-01 19:04:00 154.9 cm [facility] Body weight 2022-05-01 19:04:00 70.353 kg [facility] BMI 2022-05-01 19:04:00 29.31 kg/m2 [facility] Oxygen saturation in Arterial blood by Pulse oximetry 2022-05-01 19:04:00 98 /min [facility] Systolic blood pressure 2021-09-16 20:30:00 107 mm[Hg] [facility] Diastolic blood pressure 2021-09-16 20:30:00 70 mm[Hg] [facility] Heart rate 2021-09-16 20:30:00 55 /min [facility] Body temperature 2021-09-16 20:30:00 37.11 Gifty [facility] Respiratory rate 2021-09-16 20:30:00 16 /min [facility] Body height 2021-09-16 20:30:00 154.9 cm [facility] Body weight 2021-09-16 20:30:00 65.375 kg [facility] BMI 2021-09-16 20:30:00 27.23 kg/m2 [facility] Systolic blood pressure 2021-09-16 20:30:00 107 mm[Hg] [facility] Diastolic blood pressure 2021-09-16 20:30:00 70 mm[Hg] [facility] Heart rate 2021-09-16 20:30:00 55 /min [facility] Body temperature 2021-09-16 20:30:00 37.11 Gifty [facility] Respiratory rate 2021-09-16 20:30:00 16 /min [facility] Body height 2021-09-16 20:30:00 154.9 cm [facility] Body weight 2021-09-16 20:30:00 65.375 kg [facility] BMI 2021-09-16 20:30:00 27.23 kg/m2 [facility] Procedures Procedure Date / Time Performed Performing Clinician Source POCT TEST 2023-04-09 05:20:00 Deanna Olguin [facility] ASSIGNMENT OF BENEFITS 2023-04-09 04:19:09 Docto r Unassigned, [place] [facility] NOTICE OF PRIVACY PRACTICES 2023-04-09 03:21:17 Doctor [place]ass[place], [place] [facility] CONSENT/REFUSAL FOR DIAGNOSIS AND TREATMENT 2023-04-09 03:19:40 Doctor Unassigned, [place] [facility] POCT TEST 2023-04-09 00:00:00 Jaylon Snyder [facility] CONSENT/REFUSAL FOR DIAGNOSIS AND TREATMENT 2022-09-18 15:26:49 Doctor Unassigned, [place] [facility] ASSIGNMENT OF BENEFITS 2022-09-18 15:26:30 Docto r Unassigned, [place] [facility] GC & CHLAMYDIA AMPLIFIED ASSAY 2022-05-18 16:13:00 Elva Snyder [facility] TRICHOMONAS AMPLIFIED ASSAY 2022-05-18 16:13:00 Elva Snyder [facility] POCT TEST 2022-05-18 00:00:00 Jaylon Snyder [facility] POCT TEST 2022-05-01 00:00:00 Jaylon Snyder [facility] GC & CHLAMYDIA AMPLIFIED ASSAY 2021-09-16 20:53:00 Elva Snyder [facility] GALV ONLY - VAGINAL PATHOGENS BY NUCLEIC ACID TESTING 2021-09-16 20:53:00 Elva Snyder [facility] Encounters Start Date/Time End Date/Time Encounter Type Admission Type Attending [facility] Care Department Encounter ID Source 2023-11-07 09:15:00 2023-11-07 09:15:00 Outpatient R [facility] [id number] [facility] 2023-11-06 09:00:00 2023-11-06 09:00:00 Outpatient SPENCER RODRIGUEZ [facility] [id number] [facility] 2023-11-06 09:00:00 2023-11-06 09:00:00 Outpatient SPENCER RODRIGUEZ [facility] [id number] [facility] 2023-09-25 10:29:41 2023-09-25 10:29:41 Outpatient [facility] [id number] Dante Batista 2023-05-14 10:00:00 2023-05-14 10:00:00 Outpatient R [facility] [id number] [facility] 2023-04-11 00:00:00 2023-04-11 00:00:00 Case Management Chayo Juarez [facility] [id number] 350.1.13.10 4.2.7.2.686 [id number] [facility] 2023-04-09 09:00:00 2023-04-09 09:13:18 Outpatient R ANA SNYDERYAL TATIANARAULTRUEELVA SANTIAGO [facility] [id number] [facility] 2023-04-09 09:00:00 2023-04-09 09:13:18 Office Visit Elva Snyder [facility] 1.2.840.114 350.1.13.10 4.2.7.2.686 [id number] [facility] 2023-04-08 22:28:00 2023-04-09 00:50:00 Emergency Deanna Olguin [facility] 1.2.840.114 350.1.13.10 4.2.7.2.686 [id number] [facility] 2023-04-08 22:28:00 2023-04-09 00:50:00 Emergency X DEANNA OLGUIN [facility] ERT [id number] [facility] 2023-04-02 15:00:00 2023-04-02 15:00:00 Outpatient R ZACKELVA SANTIAGO TATIANARAULTRUEELVA SANTIAGO [facility] [id number] [facility] 2022-11-28 11:00:00 2022-11-28 11:00:00 Outpatient R LILLIANELVA LILLIANELVA [facility] [id number] [facility] 2022-09-18 09:30:00 2022-09-18 10:18:01 Office Visit TatianaraultrueElva santiago [facility] 1.2.840.114 350.1.13.10 4.2.7.2.686 [id number] [facility] 2022-09-18 09:30:00 2022-09-18 10:18:01 Outpatient R LILLIAN ELVA SNYDER ANANAMAN [facility] [id number] [facility] 2022-09-18 09:30:00 2022-09-18 09:30:00 Outpatient R LILLIAN ANANAMAN ANA SNYDERNAMAN [facility] [id number] [facility] 2022-09-18 00:00:00 2022-09-18 00:00:00 Orders Only Doctor Unassigned, [place] [facility] 1..114 350.1.13.10 4.2.7.2.686 [id number] [facility] 2022-09-11 00:00:00 2022-09-11 00:00:00 Pre Visit Outreach Mita Waldron 1..114 350.1.13.10 4.2.7.2.686 [id number] [facility] 2022-05-18 11:00:00 2022-05-18 11:10:43 Outpatient R LILLIAN ELVA SNYDER [facility] [id number] [facility] 2022-05-18 11:00:00 2022-05-18 11:10:43 [facility] 1..114 350.1.13.10 4.2.7.2.686 [id number] [facility] 2022-05-01 14:00:00 2022-05-01 15:40:38 Outpatient R ELVA SNYDER [facility] [id number] [facility] 2022-05-01 14:00:00 2022-05-01 15:40:38 [facility] 1..114 350.1.13.10 4.2.7.2.686 [id number] [facility] 2021-11-21 00:00:00 2021-11-21 00:00:00 Telephone Elva Snyder [facility] 1.2.840.114 350.1.13.10 4.2.7.2.686 [id number] [facility] 2021-09-30 00:00:00 2021-09-30 00:00:00 Orders Only Elva Snyder [facility] 1.2.840.114 350.1.13.10 4.2.7.2.686 [id number] [facility] 2021-09-19 00:00:00 2021-09-19 00:00:00 [facility] 1.2.840.114 350.1.13.10 4.2.7.2.686 [id number] [facility] 2021-09-19 00:00:00 2021-09-19 00:00:00 [facility] 1.2.840.114 350.1.13.10 4.2.7.2.686 [id number] [facility] 2021-09-16 14:00:00 2021-09-16 14:53:30 Office Visit Elva Snyder [facility] 1.2.840.114 350.1.13.10 4.2.7.2.686 [id number] [facility] 2021-09-16 14:00:00 2021-09-16 14:53:30 Outpatient R SPENCER CASTILLO [facility] [id number] [facility] 2021-09-16 14:00:00 2021-09-16 14:53:30 Office Visit Elva Snyder [facility] 1.2.840.114 350.1.13.10 4.2.7.2.686 [id number] [facility] 2021-09-16 14:00:00 2021-09-16 14:53:30 Outpatient R SPENCER CASTILLO [facility] [id number] [facility] Results Test Description Test Time Test Comments Results Result Co mments Source TRICHOMONAS, NAAT, [id number] 18:57:13* Test Item Value Reference Range Interpretation Comme nts TRICHOMONAS, NAAT, URINE (test code = 62952) NEGATIVE NEGATIVE Testing is perfo rmed with Mitch CARMELITA 6800/8800 method usingreal-time polymerase chain reaction (PCR) method. A negative result does not exclude low level infection, specimensampling error, or collection error. RPR REFLEX TO T. PALLIDUM - [id number] 05:36:22* Test Item Value Reference Range Interpretation Comme nts RPR (test code = 60711) NON-REACTIVE NON-REACTIVE RPR TITER (test code = 3500) NOT INDIC. TITER NOT INDIC. HIV 1/2 4TH GEN, RFLX [id number] 04:57:10* Test Item Value Reference Range Interpretation Comme nts HIV 1/2 4TH GEN, RFLX CONF ( test code = 3514) NON-REACTIVE NON-REACTIVE HEPATITIS A [id number] 04:57:10* Test Item Value Reference Range Interpretation Comme nts HEPATITIS A IgM (test code = 2728) NON-REACTIVE NON-REACTIVE UNLESS OTHERW ISE INDICATED, ALL TESTING PERFORMED AT [facility] [address] [place] [address] IT HELP DESK TECHNICIAN: TSERING SOSA M.D. CLIA NUMBER [id number] [facility] [place]. [id number] HEPATITIS PANEL, [id number] 04:57:10* Test Item Value Reference Range Interpretation Comments HEPATITIS A TOTAL AB (test code = 2725) REACTIVE NON-REACTIVE A HEPATITIS B SURF AG (test code = 2739) NON-REACTIVE NON-REACTIVE HEP B CORE TOTAL AB (test code = 2729) NON-REACTIVE NON-REACTIVE HEPATITIS B SURFACE AB (test code = 2737) NON-REACTIVE NON-REACTIVE HEPATITIS C ANTIBODY (test code = 4675) NON-REACTIVE NON-REACTIVE INTERPRETATION HEPATITIS A: (test code = 2552) (NOTE) Hepatitis A sero logy consistent with past exposure or previousvaccination to hepatitis A virus. No evidence of current acutehepatitis A infection. INTERPRETATION HEPATITIS B: (test code = 46841) (NOTE) Hepatitis B sero logy shows no evidence of past exposure to orcurrent infection with hepatitis B virus. No evidence of hepatitis Bimmunization is identified. INTERPRETATION HEPATITIS C: (test code = 00746) (NOTE) Hepatitis C sero logy shows no evidence of exposure to hepatitisC virus at this time. It can take up to 12 months after exposure tothe hepatitis C virus for antibodies to become detectable in the blood in certain patients. LIPID [id number] 03:27:34* Test Item Value Reference Range Interpretation Comme nts CHOLESTEROL (test code = 2210) 197 MG/DL <200 TRIGLYCERIDES (test code = 2232) 58 MG/DL <150 HDL CHOLESTEROL (test code = 2220) 85 MG/DL >39 CALC LDL CHOL (test code = 2237) 98 MG/DL <100 NOTE: CALCULATED LDL IS BASED ON PEPE-MCKEON METHOD WHICHINCLUDES ADJUSTABLE TRIGLYCERIDE:VLDL CHOLESTEROL RATIO.THIS FACTOR VARIES BY MEASURED TRIGLYCERIDE AND NON-HDLCHOLESTEROL CONCENTRATIONS WITH INCREASED CALCULATED LDL SEENIN HIGHER TRIGLYCERIDE OR LOWER NON-HDL SPECIMENS. FOR MOREINFORMATION, SEE CLIENT ANNOUNCEMENT AT [email or web address] RATIO LDL/HDL (test code = 2238) 1.15 RATIO <3.22 COMPREHENSIVE METABOLIC [id number] 03:27:34* Test Item Value Reference Range Interpretation Comme nts GLUCOSE (test code = 2217) 73 MG/DL 70-99 BUN (test code = 2208) 12 MG/DL 6-20 CREATININE (test code = 2214) 0.91 MG/DL 0.60-1.30 eGFR (2020 CKD-EPI) (test co de = 42618) 91 ML/MIN/1.73 >60 CALC BUN/CREAT (test code = 2235) 13 RATIO 6-28 SODIUM (test code = 2231) 138 MEQ/L 133-146 POTASSIUM (test code = 2228) 4.2 MEQ/L 3.5-5.4 CHLORIDE (test code = 2215) 103 MEQ/L 95-107 CARBON DIOXIDE (test code = 2206) 23 MEQ/L 19-31 CALCIUM (test code = 2209) 9.6 MG/DL 8.5-10.5 PROTEIN, TOTAL (test code = 2228) 7.2 G/DL 6.1-8.3 ALBUMIN (test code = 220) 4.1 G/DL 3.5-5.2 CALC GLOBULIN (test code = 2240) 3.1 G/DL 1.9-3.7 CALC A/G RATIO (test code = 2233) 1.3 RATIO 1.0-2.6 BILIRUBIN, TOTAL (test code = 2206) 0.2 MG/DL <=1.2 ALKALINE PHOSPHATASE (test code = 2203) 79 U/L 38-117 AST (test code = 2217) 20 U/L 9-40 ALT (test code = 2218) 15 U/L 5-40 HEMOGLOBIN [id number] 02:58:37* Test Item Value Reference Range Interpretation Comme nts HEMOGLOBIN A1c (test code = 92631) 5.2 % 4.2-5.6 CBC W/AUTO DIFF WITH [id number] 01:41:17* Test Item Value Reference Range Interpretation Comme nts WBC (test code = 1001) 6.8 K/UL 3.5-11.0 RBC (test code = 1002) 4.80 M/UL 3.80-5.40 HEMOGLOBIN (test code = 1003) 14.2 G/DL 11.5-15.5 HEMATOCRIT (test code = 1004) 44.3 % 34.0-45.0 MCV (test code = 1005) 92.3 fL 80.0-99.0 MCH (test code = 1006) 29.6 PG 25.0-33.0 MCHC (test code = 1007) 32.1 G/DL 31.0-36.0 RDW (test code = 1038) 12.7 % 11.5-15.0 NEUTROPHILS (test code = 1008) 52.9 % LYMPHOCYTES (test code = 1010) 34.7 % MONOCYTES (test code = 1011) 7.1 % EOSINOPHILS (test code = 1012) 4.6 % BASOPHILS (test code = 1013) 0.6 % IMMATURE GRANULOCYTES (test code = 1036) 0.1 % NUCLEATED RBCS (test code = 1065) 0.0 /100 WBC'S See_Comment [Automated [employer] ge] The system which generated this result transmitted reference range: 0.0. The reference range was not used to interpret this result as normal/abnormal. PLATELET COUNT (test code = 1015) 286 K/UL 130-400 ABSOLUTE NEUTROPHILS (test code = 1066) 3.57 K/UL 1.50-7.50 ABSOLUTE LYMPHOCYTES (test code = 1067) 2.34 K/UL 1.00-4.00 ABSOLUTE MONOCYTES (test code = 1068) 0.48 K/UL 0.20-1.00 ABSOLUTE EOSINOPHILS (test code = 1040) 0.31 K/UL 0.00-0.50 ABSOLUTE BASOPHILS (test code = 1069) 0.04 K/UL 0.00-0.20 ABS IMMATURE GRANULOCYTES (test code = 1020) 0.01 K/UL 0.00-0.10 ABS NUCLEATED RBCS (test code = 46830) 0.00 K/UL 0.00-0.11 POCT [id number] 14:06:00* Test Item Value Reference Range Interpretation Comme nts POCT PREG (test code = 1605) Negative On board controls acceptable with C Line (test code = 3574) Yes POCT PREG LOT # (test code = 3575) POCT PREG TEST DATE ( test code = 3576) [facility] [id number] 14:06:00* Test Item Value Reference Range Interpretation Comme nts POCT PREG (test code = 1605) Negative On board controls acceptable with C Line (test code = 3574) Yes POCT PREG LOT # (test code = 3575) POCT PREG TEST DATE ( test code = 3576) [facility] [id number] 05:20:00* Test Item Value Reference Range Interpretation Comme nts POCT PREG (test code = 1605) Negative On board controls acceptable with C Line (test code = 3574) Yes POCT PREG LOT # (test code = 3575) [id number] POCT PREG TEST DATE ( test code = 3576) 2024 Lab Interpretation (test cod e = 34338-5) Normal [facility], NAAT, [id number] 18:01:58* Test Item Value Reference Range Interpretation Comme nts CHLAMYDIA, NAAT, URINE (test code = 03774) NEGATIVE NEGATIVE Testing is perfo rmed with Mitch CARMELITA 6800/8800 systems usingreal-time polymerase chain reaction (PCR) method. A negative result does not exclude low level infection, specimensampling error, or collection error. GONORRHEA, NAAT, URINE (test code = 08222) NEGATIVE NEGATIVE Testing is perfo rmed with Mitch CARMELITA 6800/8800 systems usingreal-time polymerase chain reaction (PCR) method. A negative result does not exclude low level infection, specimensampling error, or collection error. TRICHOMONAS, NAAT, [id number] 15:41:57* Test Item Value Reference Range Interpretation Comme nts TRICHOMONAS, NAAT, URINE (test code = 99317) NEGATIVE NEGATIVE Testing is perfo rmed with Mitch CARMELITA 6800/8800 method usingreal-time polymerase chain reaction (PCR) method. A negative result does not exclude low level infection, specimensampling error, or collection error. HERPES SIMPLEX AB, [id number] 14:19:52* Test Item Value Reference Range Interpretation Comme nts HERPES SIMPLEX AB, IgM (test code = 34856) 0.89 INDEX SEE BELOW INTERPRETATION U NITS RANGE ----- ----- NEGATIVE INDEX <=0.89 EQUIVOCAL INDEX 0.90-1.09 POSITIVE INDEX >=1.10 HIV 1/2 4TH GEN, RFLX [id number] 04:18:51* Test Item Value Reference Range Interpretation Comme [facility] HIV 1/2 4TH GEN, RFLX CONF ( test code = 3514) NON-REACTIVE NON-REACTIVE HEPATITIS PANEL, [id number] 04:18:51* Test Item Value Reference Range Interpretation Comme nts HEPATITIS A IgM (test code = 29342) NON-REACTIVE NON-REACTIVE HEPATITIS B CORE IgM (test code = 4644) NON-REACTIVE NON-REACTIVE HEPATITIS B SURF AG (test code = 2739) NON-REACTIVE NON-REACTIVE HEPATITIS C ANTIBODY (test code = 4675) NON-REACTIVE NON-REACTIVE INTERPRETATION HEPATITIS A: (test code = 2552) (NOTE) Hepatitis A serology shows no evidence of acute hepatitis A. INTERPRETATION HEPATITIS B: (test code = 51928) (NOTE) Hepatitis B serology shows no evidence of acute hepatitis B andno indication of exposure to hepatitis B virus in the previous julio césar eight months. INTERPRETATION HEPATITIS C: (test code = 58122) (NOTE) Hepatitis C serology shows no evidence of exposure to hepatitisC virus at this time. It can take up to 12 months after exposure tothe hepatitis C virus for antibodies to become detectable in the blood in certain patients. HERPES SIMPLEX 1/2 AB, IgG [id number] 04:18:51* Test Item Value Reference Range Interpretation Comme nts HERPES SIMPLEX 1 AB, IgG (test code = 18199) 0.030 INDEX SEE BELOW INTERPRETATION U NITS RANGE ----- ----- NON-REACTIVE INDEX <1.000 REACTIVE INDEX >=1.000 HERPES SIMPLEX 2 AB, IgG (test code = 27052) 0.077 INDEX SEE BELOW INTERPRETATION UNITS RANGE ----- ----- NON-REACTIVE INDEX <1.000 REACTIVE INDEX >=1.000 UNLESS OTHERWISE INDICATED, ALL TESTING PERFORMED AT [facility] [address] [place] [address] IT HELP DESK TECHNICIAN: TSERING SOSA M.D. CLIA NUMBER [id number] [facility] [place]. [id number] RPR REFLEX TO T. PALLIDUM - [id number] 03:20:24* Test Item Value Reference Range Interpretation Comme nts RPR (test code = 95452) NON-REACTIVE NON-REACTIVE RPR TITER (test code = 3500) NOT INDIC. TITER NOT INDIC. POCT [id number] 16:05:00* Test Item Value Reference Range Interpretation Comme nts POCT PREG (test code = 1605) Negative On board controls acceptable with C Line (test code = 3574) Yes POCT PREG LOT # (test code = 3575) POCT PREG TEST DATE ( test code = 3576) [facility] [id number] 16:05:00* Test Item Value Reference Range Interpretation Comme nts POCT PREG (test code = 1605) Negative On board controls acceptable with C Line (test code = 3574) Yes POCT PREG LOT # (test code = 3575) POCT PREG TEST DATE ( test code = 3576) [facility] [id number] 19:14:00* Test Item Value Reference Range Interpretation Comme nts POCT PREG (test code = 1605) Negative On board controls acceptable with C Line (test code = 3574) Yes POCT PREG LOT # (test code = 3575) POCT PREG TEST DATE ( test code = 3576) [facility] [id number] 19:14:00* Test Item Value Reference Range Interpretation Comme nts POCT PREG (test code = 1605) Negative On board controls acceptable with C Line (test code = 3574) Yes POCT PREG LOT # (test code = 3575) POCT PREG TEST DATE ( test code = 3576) [facility]
[2023-11-07 12:18] LABS: Specific Gravity > 1.030 (1.005-1.030)
[2023-11-07 12:19] LABS: Absolute Eosinophils 0.4 K/uL (0-0.5); Absolute Lymphocytes (CBC) 1.9 K/uL (0.7-4.9); Absolute Monocytes 0.5 K/uL (0.1-1.3); Absolute Neutrophil 4.2 K/uL (1.8-8.0); Basophils % 0.7 % (0-1.3); Hematocrit 42.8 % (36.0-45.0); Hemoglobin 14.2 g/dL (12.0-15.0); Lymphocytes % 27.2 % (15.3-44.8); MCH 30.1 pg (27.0-35.0); MCHC 33.2 g/dL (32.0-36.0); MCV 90.5 fL (80-100); MPV 7.4 fL (7.6-11.3); Monocytes % 7.5 % (3.3-12.3); Neutrophils % 59.6 % (41.7-73.7); Platelets 247 thou/uL (152-406); RBC Red Blood Cell Count 4.73 M/uL (3.86-4.86); Red Cell Distribution Width 13.5 % (12.1-15.2)
[2023-11-07 12:25] LABS: Specific Gravity > 1.030 (1.005-1.030); Sqamous Epithelial <5 /HPF (None Seen); Urine Bacteria <20 /HPF (<20); Urine Bilirubin NEGATIVE (Negative); Urine Blood Negative (Negative); Urine Clarity Clear (Clear); Urine Color Yellow (Yellow); Urine Culture Reflex Order NOT NEEDED; Urine Glucose NEGATIVE (Negative); Urine Ketones NEGATIVE (Negative); Urine Micro Reflex YN NO BILL MICROSCOPIC; Urine Mucus 2+ /HPF (None Seen); Urine Nitrite NEGATIVE (Negative); Urine Protein TRACE (Negative); Urine Urobilinogen Normal (Normal); Urine WBC <5 /HPF (<5); Urine pH 6.5 (5.0-7.0)
[2023-11-07 12:37] LABS: Albumin 3.3 g/dL (3.4-5.0); Albumin/Globulin Ratio 0.9 (1.1-1.8); Anion Gap 11.2 mEq/L (5.0-15.0); Bilirubin Total 0.3 mg/dL (0.2-1.0); Globulin 3.8 g/dL (2.3-3.5); Potassium 4.2 mEq/L (3.5-5.1); Protein, Total 7.1 g/dL (6.4-8.2)
--- NOTE | 2023-11-07 14:41 | RAD REPORT ---
EXAM DESCRIPTION: US - Transvaginal OB - 11/07/2023 1:56 pm CLINICAL HISTORY: ABD PAIN preg COMPARISON: No comparisons TECHNIQUE: Sonographic grayscale and color flow images of a first-trimester were obtained through transvaginal approach. FINDINGS: A single live intrauterine is identified. Mcnary-rump length measures 6 millimeters, corresponding to gestational age of 6 weeks, 3 days. HR: 120 bpm. Subjectively normal volume of amniotic fluid. Normal yolk sac is visualized. Maternal ovaries are unremarkable. No free fluid. IMPRESSION: 1. Single live intrauterine . 2. Calculated gestational age: 6 weeks, 3 days. Estimated due date by ultrasound: 06/29/2024.
--- NOTE | 2023-11-07 14:58 | EDPHYS ---
Physician Documentation [facility] Name: Michelle Conner Age: 23 yrs Sex: Female : 2000 Arrival Date: 11/07/2023 Time: 10:58 Bed 11 Private MD: ED Physician Caleb Lynn Historical: - Allergies: 11/06 11:20 PENICILLINS; iw - PMHx: 11:20 Migraines; ADD/ADHD; iw - PSHx: 11:20 Tonsillectomy; iw - Immunization history:: Adult Immunizations. - Infectious Disease History:: Denies. - Social history:: Smoking status: Patient denies any tobacco usage or history of. Vital Signs: 11:18 BP 111 / 86; Pulse 87; Resp 16; Temp 98.5; Pulse Ox 100% ; Weight 79.38 kg; Height 5 iw ft. 2 in. ; Pain 6/10; 14:09 BP 120 / 62; Pulse 82; Resp 18; Pulse Ox 100% on R/A; mb9 11:18 Body Mass Index 32.01 (79.38 kg, 157.48 cm) iw 11:18 Pain Scale: Adult iw MDM: 11:25 Patient medically screened. rt 11/06 11:31 Order name: UAM; Complete Time: 12:39 rt 11/06 11:31 Order name: PREGU; Complete Time: 12:39 rt 11/06 11:31 Order name: CBC with Diff; Complete Time: 12:39 rt 11/06 11:31 Order name: CMP; Complete Time: 12:39 rt 11/06 11:31 Order name: Lipase; Complete Time: 12:39 rt 11/06 13:03 Order name: HCG-Quantitative; Complete Time: 13:51 rt 11/06 13:51 Order name: Transvaginal OB; Complete Time: 14:52 EDMS Administered Medications: No medications were administered Disposition Summary: 11/07/23 14:57 Discharge Ordered Notes: Location: Home rt Problem: new rt Symptoms: are unchanged rt Condition: Stable rt Diagnosis - Less than 8 weeks gestation of rt Followup: rt - With: Private Physician - When: Establish care and follow up with an OBGYN as soon as possible - Reason: Discharge Instructions: - Discharge Summary Sheet mb9 - Abdominal Pain During rt - Warning Signs During rt Forms: - School release form mb9 - Work release form mb9 - Medication Reconciliation Form rt - Antibiotic Education rt - Prescription Opioid Use rt - Patient Portal Instructions rt - Leadership Thank You Letter rt Signatures: Dispatcher [employer] Nissa Escobar, RN RN Caleb Munson MD MD rt Corrections: (The following items were deleted from the chart) 13:03 13:03 QUANTITATIVE HCG+C.LAB.BRZ ordered. EDMS EDMS 13:03 13:03 OB Limited+US.RAD.BRZ ordered. EDMS EDMS
--- NOTE | 2023-11-07 14:58 | ER ---
Nurse's Notes [facility] Name: Michelle Conner Age: 23 yrs Sex: Female : 2000 Arrival Date: 11/07/2023 Time: 10:58 Bed 11 Private MD: Diagnosis: Less than 8 weeks gestation of Presentation: 11/06 11:18 Chief complaint: Patient states: intermittent cramping in lower abd X 1 week , LMP was iw 10-21-23, denies vaginal , feels like I might have a UTI, denies n/v/d. Coronavirus screen: At this time, the client does not indicate any symptoms associated with coronavirus-19. Ebola Screen: Patient negative for fever greater than or equal to 101.5 degrees Fahrenheit, and additional compatible Ebola Virus Disease symptoms Patient denies exposure to infectious person. Patient denies travel to an Ebola-affected area in the 21 days before illness onset. No symptoms or risks identified at this time. Initial Sepsis Screen: Does the patient meet any 2 criteria? No. Patient's initial sepsis screen is negative. Does the patient have a suspected source of infection? No. Patient's initial sepsis screen is negative. Risk Assessment: Do you want to hurt yourself or someone else? Patient reports no desire to harm self or others. Onset of symptoms was October 31, 2023. 11:18 Method Of Arrival: Ambulatory iw 11:18 Acuity: NAKITA 3 iw Historical: - Allergies: 11:20 PENICILLINS; iw - PMHx: 11:20 Migraines; ADD/ADHD; iw - PSHx: 11:20 Tonsillectomy; iw - Immunization history:: Adult Immunizations. - Infectious Disease History:: Denies. - Social history:: Smoking status: Patient denies any tobacco usage or history of. Screenin:06 [facility] ED Fall Risk Assessment (Adult) History of falling in the last 3 months, mb9 including since admission No falls in past 3 months (0 pts) Confusion or Disorientation No (0 pts) Intoxicated or Sedated No (0 pts) Impaired Gait No (0 pts) Mobility Assist Device Used No (0 pt) Altered Elimination No (0 pt) Score/Fall Risk Level 0 - 2 = Low Risk Oriented to surroundings, Maintained a safe environment, Educated pt \T\ family on fall prevention, incl call for assistance when getting out of bed. Abuse screen: Denies threats or abuse. Nutritional screening: No deficits noted. Tuberculosis screening: No symptoms or risk factors identified. Assessment: 12:07 General: Appears in no apparent distress. Behavior is calm, cooperative. Pain: mb9 Complains of pain in abdomen Quality of pain is described as crampy. Neuro: Level of Consciousness is awake, alert, obeys commands, Oriented to person, place, time, situation, Appropriate for age. Cardiovascular: Patient's skin is warm and dry. Respiratory: Airway is patent Respiratory effort is even, unlabored, Respiratory pattern is regular, symmetrical. GI: Abdomen is flat, non-distended, Bowel sounds present X 4 quads. GI: Abd is soft and non tender X 4 quads. Reports cramping, Patient currently denies nausea, vomiting. : Reports burning with urination. EENT: No signs and/or symptoms were reported regarding the EENT system. Derm: Skin is pink, warm \T\ dry. Musculoskeletal: Range of motion: intact in all extremities. 13:58 Reassessment: No changes from previously documented assessment. Patient and/or family mb9 updated on plan of care and expected duration. Pain level reassessed. Patient is alert, oriented x 3, equal unlabored respirations, skin warm/dry/pink. Vital Signs: 11:18 BP 111 / 86; Pulse 87; Resp 16; Temp 98.5; Pulse Ox 100% ; Weight 79.38 kg; Height 5 iw ft. 2 in. ; Pain 6/10; 14:09 BP 120 / 62; Pulse 82; Resp 18; Pulse Ox 100% on R/A; mb9 11:18 Body Mass Index 32.01 (79.38 kg, 157.48 cm) iw 11:18 Pain Scale: Adult iw ED Course: 11:03 Patient arrived in ED. mr 11:07 Caleb Lynn MD is Attending Physician. rt 11:20 Triage completed. iw 11:20 Arm band placed on. iw 11:34 Nissa Polanco, RN is Primary Nurse. iw 12:06 Placed in gown. Bed in low position. Call light in reach. Side rails up X 1. Client mb9 placed on continuous cardiac and pulse oximetry monitoring. NIBP monitoring applied. 12:06 Provided Education on: press call light if needing anything. mb9 12:07 No provider procedures requiring assistance completed. mb9 12:10 Initial lab(s) drawn, by me, sent to lab. Inserted saline lock: 20 gauge in right em1 antecubital area, using aseptic technique. Blood collected. 13:07 HCG-Quantitative Sent. mb9 13:07 Initial lab(s) drawn, by me, sent to lab. mb9 13:17 Patient taken to ultrasound. via wheelchair. mb9 13:58 Transvaginal OB In Process Unspecified. EDMS 15:10 IV discontinued, intact, bleeding controlled, No redness/swelling at site. Pressure mb9 dressing applied. Administered Medications: No medications were administered Medication: 12:06 VIS not applicable for this client. mb9 Outcome: 14:57 Discharge ordered by MD. rt 15:10 Discharged to home ambulatory, mb9 15:10 Condition: stable 15:10 Discharge instructions given to patient, Instructed on discharge instructions, follow up and referral plans. Demonstrated understanding of instructions, follow-up care, 15:13 Patient left the ED. mb9 Signatures: Dispatcher [employer] EDWY Pili [place], Reg Reg mr Nissa Polanco, RN Micky Calvin em1 Pili Phillips, RN RN [email or web address] Caleb Lynn MD MD rt Corrections: (The following items were deleted from the chart) 12:10 12:10 Initial lab(s) drawn, by me, sent to lab. em1 em1
[2023-11-07 15:47] VITALS: BP 120/62; TEMP 98.5; O2SAT 100
== END 2023-11-07 15:13 | disposition home or self-care (01) ==
LOC: ER 10:58
DX: O26.891 Other specified pregnancy related conditions, first trimester (principal); Z3A.01 Less than 8 weeks gestation of pregnancy; Z88.0 Allergy status to penicillin
CPT/HCPCS: 36415; 76817; 80053; 81001; 81025; 83690; 84702; 85025

== ENCOUNTER 2023-12-11 03:43 | Emergency (ER) | payer BC ==
--- OUTSIDE RECORDS SUMMARY | 2023-12-11 03:49 | XMS REPORT | Continuity of Care Document ---
Author Name Unknown Address [address] [facility]. [address] [place] [address] [facility] Address [address] [facility] [address] [place] [address] Care Team Providers Care [employer] Engineer Name Role Phone Debbie Townsend Primary Care Physician [phone] [place] Attending Clinician Unavailable HAMILTON BETTENCOURT Attending Clinician Unavailwen Juarez MD, Chayo Quintanilla Attending Clinician [phone] ELVA SNYDER Attending Clinician ELVA Baker Attending Clinician Deanna Lee NP Attending Clinician [phone] DEANNA OLGUIN Attending Clinician Unavailable Doctor Unassigned, [place] Attending Clinician U Mita Mallory MA Attending Clinician Spencer Oleary MD Attending Clinician [phone] Payers Payer Name Policy Type Policy Number Effective Date Expirati on Date Source [facility] O [id number] 2023 00:00:00 [facility] [place] [facility] [id number] 2023 00:00[place] [facility] [id number] 2019 00:00:00 Problems Condition Name Condition Details Condition Category Status Onset Date Resolution Date Last Treatment Date Treating Clinician Comments Source Oral contracept tamera pill surveillan ce Oral contracept tamera pill surveillan ce Disease Active 04-09 00:00: 00 [facility] BMI 30.0-30.9, adult BMI 30.0-30.9, adult Disease Active 3-06 00:00: 00 [facility] Encounter for surveillan ce of contracept yoselyn, unspecifie d contracept tamera Encounter for surveillan ce of contracept yoselyn, unspecifie d contracept tamera Disease Active 2021-07 00:00: 00 [facility] Allergic reaction, initial encounter Allergic reaction, initial encounter Disease Active 2021-07 00:00: 00 [facility] BMI 27.0-27.9, adult BMI 27.0-27.9, adult Disease Active 2021-07 00:00: 00 [facility] Screening for venereal disease Screening for venereal disease Disease Active - 00:00: 00 [facility] Vaginal discharge Vaginal discharge Disease Active 3- 00:00: 00 [facility] Allergies, Adverse Reactions, Alerts Allergy Name Allergy Type Status Severity Reaction(s) Onset Date Inactive Date Treating Clinician Comments Source Penicill ins Propensi ty to adverse reaction to drug Active 3-12 00:00: 00 Dante Batista PENICILL INS Drug Class Active High Anaphylaxis 9-24 00:00: 00 [facility] Penicill ins Drug Allergy Active Anaphylaxis 9-24 00:00: 00 [facility] Penicill ins - CLASS Propensi ty to adverse reaction to drug Active 5-30 00:00: 00 Dante Batista PENICILL IN DRUG INGREDI Active High Anaphylaxis 2014-07 00:00: 00 [facility] Penicill in Propensi ty to adverse reaction s Active Anaphylaxis 2014-07 00:00: 00 [facility] NO KNOWN ALLERGIE S Drug Class Active [facility] Social History Social Habit Start Date Stop Date Quantity Comments Source History of tobacco use Cigar Smoker [facility] History SDOH Alcohol Frequency [facility] History SDOH [facility] intake 2023-04-09 00:00:00 2023-04-09 00:00:00 Current drinker of alcohol (finding) [facility] Exposure to SARS-CoV-2 (event) 2022-09-08 00:00:00 2022-09-18 09:24:00 Not sure [facility] Tobacco use and exposure 2022-09-18 00:00:00 2022-09-18 00:00:00 Smokeless tobacco non-user [facility] Tobacco Comment 2022-05-01 00:00:00 2022-05-01 00:00:00 smoked 1-2 cigars per day [facility] Alcohol Comment 2021-09-16 00:00:00 2021-09-16 00:00:00 occasionally [facility] History of Social function 2021-09-16 00:00:00 2021-09-16 00:00:00 [facility] Sex Assigned At 2000 00:00:00 2000 00:00:00 [facility] Smoking Status Start Date Stop Date Source Tobacco smoking consumption unknown [facility] Ex-smoker 2022-09-18 00:00:00 2022-09-18 00:00:00 [facility] Medications Ordered Medication Name Filled Medication Name Start Date Stop Date Current Medication? Ordering Clinician Indication Dosage Frequency Signature (SIG) Comments Components Source cephalexin 250 mg tablet 11-12 00:00: [address] 1 DROP INTO RT EYE 3 TIMES A DAY FOR 7 DAYS 2022-07 00:00: 00 Yes Dante Batista metroNIDAZO LE 500 mg tablet 04-11 00:00: 00 Yes [id number] 500mg Take 1 tablet by mouth every 12 (twelve) hours. [facility] TAKE 1 TABLET BY MOUTH EVERY 12 HOURS 04-11 00:00: 00 Yes Dante Batista acetaminoph en-codeine (TYLENOL #3) 300-30 mg tablet 1 tablet 04-09 06:30: 00 04-09 18:29 :00 No 1{tbl} 1 tablet, Oral, ONCE, 1 dose, On Sun04/09/23 at 0130, Routine [facility] dexamethaso ne sod phos PF injection 10 mg 04-09 06:30: 00 04-09 18:29 :00 No 10mg 10 mg, Intramuscu lar, ONCE, 1 dose, On Sun04/09/23 at 0130, Routine [facility] ipratropium -albuteroL (DUONEB) 0.5 mg-3 mg(2.5 mg base)/3 mL nebulizer solution 3 mL 04-09 06:15: 00 04-09 18:14 :00 No 3mL 3 mL, Inhalation , ONCE NOW, 1 dose, On Sun04/09/23 at 0115, Routine [facility] norgestimat e-ethinyl estradioL (ORTHO TRI-CYCLEN, 28,) 0.18/0.215/ 0.25 mg-35 mcg (28) tablet 04-09 00:00: 00 Yes [id number] 1{tbl} Take 1 tablet by mouth in the morning. [facility] doxycycline hyclate 100 mg capsule 04-09 00:00: 00 Yes [id number] 100mg Take 1 capsule by mouth in the morning and 1 capsule in the evening. [facility] methylPREDN ISolone 4 mg tablets 04-09 00:00: 00 Yes [id number] Take by mouth SEE-INSTRU CTIONS. follow package directions [facility] albuterol 90 mcg/actuati on inhaler 04-09 00:00: 00 Yes [id number] 2{puff} Inhale 2 Puffs every 4 (four) hours as needed for Wheezing or Shortness of Breath. [facility] TAKE 6 TABLETS ON DAY 1 DIRECTED ON PACKAGE AND DECREASE BY 1 TAB EACH DAY FOR A TOTAL OF 6 DAYS 04-09 00:00: 00 Yes Dante Batista INHALE 2 PUFFS EVERY 4 HOURS NEEDED FOR WHEEZING OR SHORTNESS OF BREATH 04-09 00:00: 00 Yes Dante Batista TAKE 1 CAPSULE BY MOUTH IN THE MORNING AND IN THE EVENING 04-09 00:00: 00 Yes Dante Batista TAKE 10 ML BY MOUTH EVERY 6 (SIX) HOURS NEEDED FOR COUGH FOR UP TO 7 DAYS. INDICATIONS : COUGH 04-09 00:00: 00 Yes Dante Batista TAKE 1 TABLET BY MOUTH EVERY DAY IN THE MORNING 04-09 00:00: 00 Yes Dante Batista codeine-gua ifenesin 10-100 mg/5 mL oral solution 04-09 00:00: 00 04-17 04:59 :00 No 10mL Take 10 mL by mouth every 6 (six) hours as needed for Cough for up to 7 days. Indication s: cough [facility] BENZONATATE 200 MG CAPSULE 04-03 00:00: 00 Yes Dante Batista TAKE 2 TABLETS BY MOUTH TODAY, THEN TAKE 1 TABLET DAILY FOR 4 DAYS 04-02 00:00: 00 Yes Dante Batista USE 1 SPRAY IN EACH NOSTRIL DAILY 04-02 00:00: 00 Yes Dante Batista TAKE 1 CAPSULE BY MOUTH EVERY 8 HOURS NEEDED FOR COUGH 04-02 00:00: 00 Yes Dante Batista TAKE 1 TABLET BY MOUTH EVERY DAY 04-02 00:00: 00 Yes Dante Batista METHYLPRED 10-13 00:00: 00 Yes Dante Batista TAKE 2 TABLETS BY MOUTH TODAY, THEN TAKE 1 TABLET DAILY FOR 4 DAYS 10-13 00:00: 00 Yes Dante Batista NORGEST/ETH I ESTRADIO 10-12 00:00: 00 Yes Dante Batista norgestimat e-ethinyl estradioL (ORTHO TRI-CYCLEN, 28,) 0.18/0.215/ 0.25 mg-35 mcg (28) tablet 3-06 00:00: 00 04-09 00:00 :00 No [id number] 1{tbl} Take 1 tablet by mouth in the morning. [facility] NORGEST/ETH I ESTRADIO 3- 00:00: 00 Yes Dante Batista NORGEST/ETH I ESTRADIO 1-13 00:00: 00 Yes Dante Batista norgestimat e-ethinyl estradioL (ORTHO TRI-CYCLEN, 28,) 0.18/0.215/ 0.25 mg-35 mcg (28) tablet 2021-07 00:00: 00 09-18 00:00 :00 No [id number] 1{tbl} Take 1 tablet by mouth in the morning. [facility] methylPREDN ISolone 4 mg tablets 2021-07 00:00: 00 05-25 05:59 :00 No [id number] Take by mouth SEE-INSTRU CTIONS for 6 days. follow package directions [facility] XULANE DIS 150-35 2021-07 00:00: 00 Yes Dante Batista norelgestro min-ethinyl estradiol 150-35 mcg/24 hr patch 2021-07 00:00: 00 05-18 00:00 :00 No [id number] 1{patch } Apply 1 Patch to skin weekly. [facility] triamcinolo ne acetonide 0.1 % ointment 08-25 00:00: 00 09-16 00:00 :00 No APPLY 1 TO 2 TIMES A DAY [facility] traZODone 50 mg tablet 08-18 00:00: 00 09-16 00:00 :00 No TAKE BY MOUTH 1/2 TABLET AT BEDTIME FOR 4 DAYS THEN 1 TABLET AT BEDTIME [facility] pantoprazol e (PROTONIX) 40 mg EC tablet 2014-07 00:00: 00 09-16 00:00 :00 No [facility] montelukast (SINGULAIR) 10 mg tablet 2014-07 0 00:00: 00 09-16 00:00 :00 No [facility] VYVANSE 60 mg capsule 2014-07 0- 00:00: 00 09-16 00:00 :00 No [facility] amitriptyli ne (ELAVIL) 50 mg tablet 2014-07 0-23 00:00: 00 09-16 00:00 :00 No [facility] OXcarbazepi ne (TRILEPTAL) 300 mg tablet 2014-07 0 00:00: 00 09-16 00:00 :00 No [facility] QUEtiapine (SEROQUEL) 100 mg tablet 04-07 00:00: 00 09-16 00:00 :00 No [facility] PROAIR HFA 90 mcg/actuati on inhaler 03-03 00:00: 00 09-16 00:00 :00 No [facility] Immunizations Ordered Immunization Name Filled Immunization Name Date Status Comments Source TDAP 2019-04-25 00:00:00 Completed [facility] TDAP 2019-04-25 00:00:00 Completed [facility] TDAP 2019-04-25 00:00:00 Completed [facility] TDAP 2019-04-25 00:00:00 Completed [facility] Meningococcal Polysaccharide (groups A, C, Y and W-135) conjugate vaccine (MCV4P) 2019-02-25 00:00:00 Completed [facility] TDAP 2019-02-25 00:00:00 Completed [facility] Meningococcal Polysaccharide (groups A, C, Y and W-135) conjugate vaccine (MCV4P) 2019-02-25 00:00:00 Completed [facility] TDAP 2019-02-25 00:00:00 Completed [facility] Meningococcal Polysaccharide (groups A, C, Y and W-135) conjugate vaccine (MCV4P) 2019-02-25 00:00:00 Completed [facility] TDAP 2019-02-25 00:00:00 Completed [facility] Meningococcal Polysaccharide (groups A, C, Y and W-135) conjugate vaccine (MCV4P) 2019-02-25 00:00:00 Completed [facility] TDAP 2019-02-25 00:00:00 Completed [facility] Influenza Virus Vaccine Quad .5 mL IM 6+ MO 2017-06-06 00:00:00 Completed [facility] Influenza Virus Vaccine Quad .5 mL IM 6+ MO 2017-06-06 00:00:00 Completed [facility] Influenza Virus Vaccine Quad .5 mL IM 6+ MO 2017-06-06 00:00:00 Completed [facility] Influenza Virus Vaccine Quad .5 mL IM 6+ MO 2017-06-06 00:00:00 Completed [facility] Influenza Virus Vaccine Quad .5 mL IM 6+ MO 2016-05-02 00:00:00 Completed [facility] HPV 2016-05-02 00:00:00 Completed [facility] Influenza Virus Vaccine Quad .5 mL IM 6+ MO 2016-05-02 00:00:00 Completed [facility] HPV 2016-05-02 00:00:00 Completed [facility] Influenza Virus Vaccine Quad .5 mL IM 6+ MO 2016-05-02 00:00:00 Completed [facility] HPV 2016-05-02 00:00:00 Completed [facility] Influenza Virus Vaccine Quad .5 mL IM 6+ MO 2016-05-02 00:00:00 Completed [facility] HPV 2016-05-02 00:00:00 Completed [facility] Influenza Virus Vaccine Quad Nasal 2015-05-07 00:00:00 Completed [facility] Influenza Virus Vaccine Quad Nasal 2015-05-07 00:00:00 Completed [facility] Influenza Virus Vaccine Quad Nasal 2015-05-07 00:00:00 Completed [facility] Influenza Virus Vaccine Quad Nasal 2015-05-07 00:00:00 Completed [facility] Influenza Virus Vaccine Quad IM Multi-dose 6+ MO 2014-05-09 00:00:00 Completed [facility] Influenza Virus Vaccine Quad IM Multi-dose 6+ MO 2014-05-09 00:00:00 Completed [facility] Influenza Virus Vaccine Quad IM Multi-dose 6+ MO 2014-05-09 00:00:00 Completed [facility] Influenza Virus Vaccine Quad IM Multi-dose 6+ MO 2014-05-09 00:00:00 Completed [facility] HPV 2014-01-07 00:00:00 Completed [facility] HPV 2014-01-07 00:00:00 Completed [facility] HPV 2014-01-07 00:00:00 Completed [facility] HPV 2014-01-07 00:00:00 Completed [facility] HPV 2013-09-23 00:00:00 Completed [facility] Meningococcal Polysaccharide (groups A, C, Y and W-135) conjugate vaccine (MCV4P) 2013-09-23 00:00:00 Completed [facility] TDAP 2013-09-23 00:00:00 Completed [facility] Varicella (varivax)(chicken pox) 2013-09-23 00:00:00 Completed [facility] HPV 2013-09-23 00:00:00 Completed [facility] Meningococcal Polysaccharide (groups A, C, Y and W-135) conjugate vaccine (MCV4P) 2013-09-23 00:00:00 Completed [facility] TDAP 2013-09-23 00:00:00 Completed [facility] Varicella (varivax)(chicken pox) 2013-09-23 00:00:00 Completed [facility] HPV 2013-09-23 00:00:00 Completed [facility] Meningococcal Polysaccharide (groups A, C, Y and W-135) conjugate vaccine (MCV4P) 2013-09-23 00:00:00 Completed [facility] TDAP 2013-09-23 00:00:00 Completed [facility] Varicella (varivax)(chicken pox) 2013-09-23 00:00:00 Completed [facility] HPV 2013-09-23 00:00:00 Completed [facility] Meningococcal Polysaccharide (groups A, C, Y and W-135) conjugate vaccine (MCV4P) 2013-09-23 00:00:00 Completed [facility] TDAP 2013-09-23 00:00:00 Completed [facility] Varicella (varivax)(chicken pox) 2013-09-23 00:00:00 Completed [facility] HEPATITIS A 2011-02-24 00:00:00 Completed [facility] HEPATITIS A 2011-02-24 00:00:00 Completed [facility] HEPATITIS A 2011-02-24 00:00:00 Completed [facility] HEPATITIS A 2011-02-24 00:00:00 Completed [facility] DTaP, Unspecified Formulation 2005-08-14 00:00:00 Completed [facility] HEPATITIS A 2005-08-14 00:00:00 Completed [facility] MMR 2005-08-14 00:00:00 Completed [facility] Pneumococcal 7 Conjugate, PCV7 (Prevnar7) 2005-08-14 00:00:00 Completed [facility] IPV 2005-08-14 00:00:00 Completed [facility] DTaP, Unspecified Formulation 2005-08-14 00:00:00 Completed [facility] HEPATITIS A 2005-08-14 00:00:00 Completed [facility] MMR 2005-08-14 00:00:00 Completed [facility] Pneumococcal 7 Conjugate, PCV7 (Prevnar7) 2005-08-14 00:00:00 Completed [facility] IPV 2005-08-14 00:00:00 Completed [facility] DTaP, Unspecified Formulation 2005-08-14 00:00:00 Completed [facility] HEPATITIS A 2005-08-14 00:00:00 Completed [facility] MMR 2005-08-14 00:00:00 Completed [facility] Pneumococcal 7 Conjugate, PCV7 (Prevnar7) 2005-08-14 00:00:00 Completed [facility] IPV 2005-08-14 00:00:00 Completed [facility] DTaP, Unspecified Formulation 2005-08-14 00:00:00 Completed [facility] HEPATITIS A 2005-08-14 00:00:00 Completed [facility] MMR 2005-08-14 00:00:00 Completed [facility] Pneumococcal 7 Conjugate, PCV7 (Prevnar7) 2005-08-14 00:00:00 Completed [facility] IPV 2005-08-14 00:00:00 Completed [facility] DTaP, Unspecified Formulation 2002-08-18 00:00:00 Completed [facility] HIB 4 Dose Schedule 2002-08-18 00:00:00 Completed [facility] MMR 2002-08-18 00:00:00 Completed [facility] Pneumococcal 7 Conjugate, PCV7 (Prevnar7) 2002-08-18 00:00:00 Completed [facility] Varicella (varivax)(chicken pox) 2002-08-18 00:00:00 Completed [facility] DTaP, Unspecified Formulation 2002-08-18 00:00:00 Completed [facility] HIB 4 Dose Schedule 2002-08-18 00:00:00 Completed [facility] MMR 2002-08-18 00:00:00 Completed [facility] Pneumococcal 7 Conjugate, PCV7 (Prevnar7) 2002-08-18 00:00:00 Completed [facility] Varicella (varivax)(chicken pox) 2002-08-18 00:00:00 Completed [facility] DTaP, Unspecified Formulation 2002-08-18 00:00:00 Completed [facility] HIB 4 Dose Schedule 2002-08-18 00:00:00 Completed [facility] MMR 2002-08-18 00:00:00 Completed [facility] Pneumococcal 7 Conjugate, PCV7 (Prevnar7) 2002-08-18 00:00:00 Completed [facility] Varicella (varivax)(chicken pox) 2002-08-18 00:00:00 Completed [facility] DTaP, Unspecified Formulation 2002-08-18 00:00:00 Completed [facility] HIB 4 Dose Schedule 2002-08-18 00:00:00 Completed [facility] MMR 2002-08-18 00:00:00 Completed [facility] Pneumococcal 7 Conjugate, PCV7 (Prevnar7) 2002-08-18 00:00:00 Completed [facility] Varicella (varivax)(chicken pox) 2002-08-18 00:00:00 Completed [facility] Hep B, Adol or Pedi Dosage 2002-07-05 00:00:00 Completed [facility] Hep B, Adol or Pedi Dosage 2002-07-05 00:00:00 Completed [facility] Hep B, Adol or Pedi Dosage 2002-07-05 00:00:00 Completed [facility] Hep B, Adol or Pedi Dosage 2002-07-05 00:00:00 Completed [facility] Hep B, Adol or Pedi Dosage 2002-05-05 00:00:00 Completed [facility] IPV 2002-05-05 00:00:00 Completed [facility] Hep B, Adol or Pedi Dosage 2002-05-05 00:00:00 Completed [facility] IPV 2002-05-05 00:00:00 Completed [facility] Hep B, Adol or Pedi Dosage 2002-05-05 00:00:00 Completed [facility] IPV 2002-05-05 00:00:00 Completed [facility] Hep B, Adol or Pedi Dosage 2002-05-05 00:00:00 Completed [facility] IPV 2002-05-05 00:00:00 Completed [facility] DTaP, Unspecified Formulation 2002-01-22 00:00:00 Completed [facility] HIB 4 Dose Schedule 2002-01-22 00:00:00 Completed [facility] Pneumococcal 7 Conjugate, PCV7 (Prevnar7) 2002-01-22 00:00:00 Completed [facility] DTaP, Unspecified Formulation 2002-01-22 00:00:00 Completed [facility] HIB 4 Dose Schedule 2002-01-22 00:00:00 Completed [facility] Pneumococcal 7 Conjugate, PCV7 (Prevnar7) 2002-01-22 00:00:00 Completed [facility] DTaP, Unspecified Formulation 2002-01-22 00:00:00 Completed [facility] HIB 4 Dose Schedule 2002-01-22 00:00:00 Completed [facility] Pneumococcal 7 Conjugate, PCV7 (Prevnar7) 2002-01-22 00:00:00 Completed [facility] DTaP, Unspecified Formulation 2002-01-22 00:00:00 Completed [facility] HIB 4 Dose Schedule 2002-01-22 00:00:00 Completed [facility] Pneumococcal 7 Conjugate, PCV7 (Prevnar7) 2002-01-22 00:00:00 Completed [facility] DTaP, Unspecified Formulation 2001 00:00:00 Completed [facility] HIB 4 Dose Schedule 2001 00:00:00 Completed [facility] Pneumococcal 7 Conjugate, PCV7 (Prevnar7) 2001 00:00:00 Completed [facility] IPV 2001 00:00:00 Completed [facility] DTaP, Unspecified Formulation 2001 00:00:00 Completed [facility] HIB 4 Dose Schedule 2001 00:00:00 Completed [facility] Pneumococcal 7 Conjugate, PCV7 (Prevnar7) 2001 00:00:00 Completed [facility] IPV 2001 00:00:00 Completed [facility] DTaP, Unspecified Formulation 2001 00:00:00 Completed [facility] HIB 4 Dose Schedule 2001 00:00:00 Completed [facility] Pneumococcal 7 Conjugate, PCV7 (Prevnar7) 2001 00:00:00 Completed [facility] IPV 2001 00:00:00 Completed [facility] DTaP, Unspecified Formulation 2001 00:00:00 Completed [facility] HIB 4 Dose Schedule 2001 00:00:00 Completed [facility] Pneumococcal 7 Conjugate, PCV7 (Prevnar7) 2001 00:00:00 Completed [facility] IPV 2001 00:00:00 Completed [facility] DTaP, Unspecified Formulation 2001 00:00:00 Completed [facility] HIB 4 Dose Schedule 2001 00:00:00 Completed [facility] Pneumococcal 7 Conjugate, PCV7 (Prevnar7) 2001 00:00:00 Completed [facility] IPV 2001 00:00:00 Completed [facility] DTaP, Unspecified Formulation 2001 00:00:00 Completed [facility] HIB 4 Dose Schedule 2001 00:00:00 Completed [facility] Pneumococcal 7 Conjugate, PCV7 (Prevnar7) 2001 00:00:00 Completed [facility] IPV 2001 00:00:00 Completed [facility] DTaP, Unspecified Formulation 2001 00:00:00 Completed [facility] HIB 4 Dose Schedule 2001 00:00:00 Completed [facility] Pneumococcal 7 Conjugate, PCV7 (Prevnar7) 2001 00:00:00 Completed [facility] IPV 2001 00:00:00 Completed [facility] DTaP, Unspecified Formulation 2001 00:00:00 Completed [facility] HIB 4 Dose Schedule 2001 00:00:00 Completed [facility] Pneumococcal 7 Conjugate, PCV7 (Prevnar7) 2001 00:00:00 Completed [facility] IPV 2001 00:00:00 Completed [facility] Hep B, Adol or Pedi Dosage 2001 00:00:00 Completed [facility] Hep B, Adol or Pedi Dosage 2001 00:00:00 Completed [facility] Hep B, Adol or Pedi Dosage 2001 00:00:00 Completed [facility] Hep B, Adol or Pedi Dosage 2001 00:00:00 Completed [facility] Hep B, Adol or Pedi Dosage 2001 00:00:00 Completed [facility] Hep B, Adol or Pedi Dosage 2001 00:00:00 Completed [facility] Hep B, Adol or Pedi Dosage 2001 00:00:00 Completed [facility] Hep B, Adol or Pedi Dosage 2001 00:00:00 Completed [facility] DTaP, Unspecified Formulation Unknown Completed [facility] DTaP, Unspecified Formulation Unknown Completed [facility] DTaP, Unspecified Formulation Unknown Completed [facility] DTaP, Unspecified Formulation Unknown Completed [facility] DTaP, Unspecified Formulation Unknown Completed [facility] Influenza Virus Vaccine Quad .5 mL IM 6+ MO (FLUZONE/FLULAVAL/FL UARIX) Unknown Completed [facility] Influenza Virus Vaccine Quad .5 mL IM 6+ MO (FLUZONE/FLULAVAL/FL UARIX) Unknown Completed [facility] Influenza Virus Vaccine Quad IM Multi-dose 6+ MO Unknown Completed [facility] Influenza Virus Vaccine Quad Nasal (Flumist) Unknown Completed [facility] HEPATITIS A Unknown Completed [facility] HEPATITIS A Unknown Completed [facility] Hep B, Adol or Pedi Dosage Unknown Completed [facility] Hep B, Adol or Pedi Dosage Unknown Completed [facility] Hep B, Adol or Pedi Dosage Unknown Completed [facility] Hep B, Adol or Pedi Dosage Unknown Completed [facility] HIB 4 Dose Schedule Unknown Completed [facility] HIB 4 Dose Schedule Unknown Completed [facility] HIB 4 Dose Schedule Unknown Completed [facility] HIB 4 Dose Schedule Unknown Completed [facility] HPV Unknown Completed [facility] HPV Unknown Completed [facility] HPV Unknown Completed [facility] Meningococcal Polysaccharide (groups A, C, Y and W-135) conjugate vaccine (MCV4P) Unknown Completed [facility] Meningococcal Polysaccharide (groups A, C, Y and W-135) conjugate vaccine (MCV4P) Unknown Completed [facility] MMR Unknown Completed [facility] MMR Unknown Completed [facility] Pneumococcal 7 Conjugate, PCV7 (Prevnar7) Unknown Completed [facility] Pneumococcal 7 Conjugate, PCV7 (Prevnar7) Unknown Completed [facility] Pneumococcal 7 Conjugate, PCV7 (Prevnar7) Unknown Completed [facility] Pneumococcal 7 Conjugate, PCV7 (Prevnar7) Unknown Completed [facility] Pneumococcal 7 Conjugate, PCV7 (Prevnar7) Unknown Completed [facility] IPV Unknown Completed [facility] IPV Unknown Completed [facility] IPV Unknown Completed [facility] IPV Unknown Completed [facility] TDAP Unknown Completed [facility] TDAP Unknown Completed [facility] TDAP Unknown Completed [facility] Varicella (varivax)(chicken pox) Unknown Completed [facility] Varicella (varivax)(chicken pox) Unknown Completed [facility] DTaP, Unspecified Formulation Unknown Completed [facility] DTaP, Unspecified Formulation Unknown Completed [facility] DTaP, Unspecified Formulation Unknown Completed [facility] DTaP, Unspecified Formulation Unknown Completed [facility] DTaP, Unspecified Formulation Unknown Completed [facility] Influenza Virus Vaccine Quad .5 mL IM 6+ MO (FLUZONE/FLULAVAL/FL UARIX) Unknown Completed [facility] Influenza Virus Vaccine Quad .5 mL IM 6+ MO (FLUZONE/FLULAVAL/FL UARIX) Unknown Completed [facility] Influenza Virus Vaccine Quad IM Multi-dose 6+ MO Unknown Completed [facility] Influenza Virus Vaccine Quad Nasal (Flumist) Unknown Completed [facility] HEPATITIS A Unknown Completed [facility] HEPATITIS A Unknown Completed [facility] Hep B, Adol or Pedi Dosage Unknown Completed [facility] Hep B, Adol or Pedi Dosage Unknown Completed [facility] Hep B, Adol or Pedi Dosage Unknown Completed [facility] Hep B, Adol or Pedi Dosage Unknown Completed [facility] HIB 4 Dose Schedule Unknown Completed [facility] HIB 4 Dose Schedule Unknown Completed [facility] HIB 4 Dose Schedule Unknown Completed [facility] HIB 4 Dose Schedule Unknown Completed [facility] HPV Unknown Completed [facility] HPV Unknown Completed [facility] HPV Unknown Completed [facility] Meningococcal Polysaccharide (groups A, C, Y and W-135) conjugate vaccine (MCV4P) Unknown Completed [facility] Meningococcal Polysaccharide (groups A, C, Y and W-135) conjugate vaccine (MCV4P) Unknown Completed [facility] MMR Unknown Completed [facility] MMR Unknown Completed [facility] Pneumococcal 7 Conjugate, PCV7 (Prevnar7) Unknown Completed [facility] Pneumococcal 7 Conjugate, PCV7 (Prevnar7) Unknown Completed [facility] Pneumococcal 7 Conjugate, PCV7 (Prevnar7) Unknown Completed [facility] Pneumococcal 7 Conjugate, PCV7 (Prevnar7) Unknown Completed [facility] Pneumococcal 7 Conjugate, PCV7 (Prevnar7) Unknown Completed [facility] IPV Unknown Completed [facility] IPV Unknown Completed [facility] IPV Unknown Completed [facility] IPV Unknown Completed [facility] TDAP Unknown Completed [facility] TDAP Unknown Completed [facility] TDAP Unknown Completed [facility] Varicella (varivax)(chicken pox) Unknown Completed [facility] Varicella (varivax)(chicken pox) Unknown Completed [facility] DTaP, Unspecified Formulation Unknown Completed [facility] DTaP, Unspecified Formulation Unknown Completed [facility] DTaP, Unspecified Formulation Unknown Completed [facility] DTaP, Unspecified Formulation Unknown Completed [facility] DTaP, Unspecified Formulation Unknown Completed [facility] Influenza Virus Vaccine Quad .5 mL IM 6+ MO (FLUZONE/FLULAVAL/FL UARIX) Unknown Completed [facility] Influenza Virus Vaccine Quad .5 mL IM 6+ MO (FLUZONE/FLULAVAL/FL UARIX) Unknown Completed [facility] Influenza Virus Vaccine Quad IM Multi-dose 6+ MO Unknown Completed [facility] Influenza Virus Vaccine Quad Nasal (Flumist) Unknown Completed [facility] HEPATITIS A Unknown Completed [facility] HEPATITIS A Unknown Completed [facility] Hep B, Adol or Pedi Dosage Unknown Completed [facility] Hep B, Adol or Pedi Dosage Unknown Completed [facility] Hep B, Adol or Pedi Dosage Unknown Completed [facility] Hep B, Adol or Pedi Dosage Unknown Completed [facility] HIB 4 Dose Schedule Unknown Completed [facility] HIB 4 Dose Schedule Unknown Completed [facility] HIB 4 Dose Schedule Unknown Completed [facility] HIB 4 Dose Schedule Unknown Completed [facility] HPV Unknown Completed [facility] HPV Unknown Completed [facility] HPV Unknown Completed [facility] Meningococcal Polysaccharide (groups A, C, Y and W-135) conjugate vaccine (MCV4P) Unknown Completed [facility] Meningococcal Polysaccharide (groups A, C, Y and W-135) conjugate vaccine (MCV4P) Unknown Completed [facility] MMR Unknown Completed [facility] MMR Unknown Completed [facility] Pneumococcal 7 Conjugate, PCV7 (Prevnar7) Unknown Completed [facility] Pneumococcal 7 Conjugate, PCV7 (Prevnar7) Unknown Completed [facility] Pneumococcal 7 Conjugate, PCV7 (Prevnar7) Unknown Completed [facility] Pneumococcal 7 Conjugate, PCV7 (Prevnar7) Unknown Completed [facility] Pneumococcal 7 Conjugate, PCV7 (Prevnar7) Unknown Completed [facility] IPV Unknown Completed [facility] IPV Unknown Completed [facility] IPV Unknown Completed [facility] IPV Unknown Completed [facility] TDAP Unknown Completed [facility] TDAP Unknown Completed [facility] TDAP Unknown Completed [facility] Varicella (varivax)(chicken pox) Unknown Completed [facility] Varicella (varivax)(chicken pox) Unknown Completed [facility] Vital Signs Vital Name Observation Time Observation Value Comments S ource Systolic blood pressure 2023-04-09 14:06:00 135 mm[Hg] [facility] Diastolic blood pressure 2023-04-09 14:06:00 72 mm[Hg] [facility] Heart rate 2023-04-09 14:06:00 106 /min [facility] Body temperature 2023-04-09 14:06:00 36.83 Gifty [facility] Respiratory rate 2023-04-09 14:06:00 16 /min [facility] Body height 2023-04-09 14:06:00 162.6 cm [facility] Body weight 2023-04-09 14:06:00 72.394 kg [facility] BMI 2023-04-09 14:06:00 27.40 kg/m2 [facility] Systolic blood pressure 2023-04-09 03:26:00 122 mm[Hg] [facility] Diastolic blood pressure 2023-04-09 03:26:00 75 mm[Hg] [facility] Heart rate 2023-04-09 03:26:00 62 /min [facility] Body temperature 2023-04-09 03:26:00 37 Gifty [facility] Respiratory rate 2023-04-09 03:26:00 16 /min [facility] Body height 2023-04-09 03:26:00 157.5 cm [facility] Body weight 2023-04-09 03:26:00 74.844 kg [facility] BMI 2023-04-09 03:26:00 30.18 kg/m2 [facility] Oxygen saturation in Arterial blood by Pulse oximetry 2023-04-09 03:26:00 97 /min [facility] Systolic blood pressure 2022-09-18 15:32:00 124 mm[Hg] [facility] Diastolic blood pressure 2022-09-18 15:32:00 87 mm[Hg] [facility] Heart rate 2022-09-18 15:32:00 82 /min [facility] Body temperature 2022-09-18 15:32:00 36.67 Gifty [facility] Respiratory rate 2022-09-18 15:32:00 16 /min [facility] Body height 2022-09-18 15:32:00 154.9 cm [facility] Body weight 2022-09-18 15:32:00 72.122 kg [facility] BMI 2022-09-18 15:32:00 30.04 kg/m2 [facility] Systolic blood pressure 2022-05-18 15:54:00 101 mm[Hg] [facility] Diastolic blood pressure 2022-05-18 15:54:00 66 mm[Hg] [facility] Heart rate 2022-05-18 15:54:00 88 /min [facility] Body temperature 2022-05-18 15:54:00 37.06 Gifty [facility] Respiratory rate 2022-05-18 15:54:00 16 /min [facility] Body height 2022-05-18 15:54:00 154.9 cm [facility] Body weight 2022-05-18 15:54:00 70.852 kg [facility] BMI 2022-05-18 15:54:00 29.51 kg/m2 [facility] Oxygen saturation in Arterial blood by Pulse oximetry 2022-05-18 15:54:00 98 /min [facility] Systolic blood pressure 2022-05-01 19:04:00 105 mm[Hg] [facility] Diastolic blood pressure 2022-05-01 19:04:00 66 mm[Hg] [facility] Heart rate 2022-05-01 19:04:00 77 /min [facility] Body temperature 2022-05-01 19:04:00 37 Gifty [facility] Respiratory rate 2022-05-01 19:04:00 16 /min [facility] Body height 2022-05-01 19:04:00 154.9 cm [facility] Body weight 2022-05-01 19:04:00 70.353 kg [facility] BMI 2022-05-01 19:04:00 29.31 kg/m2 [facility] Oxygen saturation in Arterial blood by Pulse oximetry 2022-05-01 19:04:00 98 /min [facility] Systolic blood pressure 2021-09-16 20:30:00 107 mm[Hg] [facility] Diastolic blood pressure 2021-09-16 20:30:00 70 mm[Hg] [facility] Heart rate 2021-09-16 20:30:00 55 /min [facility] Body temperature 2021-09-16 20:30:00 37.11 Gifty [facility] Respiratory rate 2021-09-16 20:30:00 16 /min [facility] Body height 2021-09-16 20:30:00 154.9 cm [facility] Body weight 2021-09-16 20:30:00 65.375 kg [facility] BMI 2021-09-16 20:30:00 27.23 kg/m2 [facility] Systolic blood pressure 2021-09-16 20:30:00 107 mm[Hg] [facility] Diastolic blood pressure 2021-09-16 20:30:00 70 mm[Hg] [facility] Heart rate 2021-09-16 20:30:00 55 /min [facility] Body temperature 2021-09-16 20:30:00 37.11 [facility] Respiratory rate 2021-09-16 20:30:00 16 /min [facility] Body height 2021-09-16 20:30:00 154.9 cm [facility] Body weight 2021-09-16 20:30:00 65.375 kg [facility] BMI 2021-09-16 20:30:00 27.23 kg/m2 [facility] Height Measured 2023-11-13 09:09:00 61.00 inches Dante F Lester Body Temperature 2023-11-13 09:09:00 97.40 degrees Dante F Lester Heart Rate 2023-11-13 09:09:00 Lexy en F Lester Respiratory Rate 2023-11-13 09:09:00 18.00 /min Dante F Lester BP Systolic 2023-11-13 09:09:00 99 mm[Hg] Step hen F Lester BP Diastolic 2023-11-13 09:09:00 60 mm[Hg] Zack phen F Lester Weight Measured 2023-11-13 09:09:00 173.00 pounds Dante F Lester BP Systolic 2023-09-25 10:36:00 113 mm[Hg] Step hen F Lester BP Diastolic 2023-09-25 10:36:00 77 mm[Hg] Zack phen F Lester Weight Measured 2023-09-25 10:36:00 172.40 pounds Dante F Lester Height Measured 2023-09-25 10:36:00 61.00 inches Dante F Lester Body Temperature 2023-09-25 10:36:00 97.00 degrees Dante F Lester Heart Rate 2023-09-25 10:36:00 80.00 /min Lexy en F Lester Respiratory Rate 2023-09-25 10:36:00 Dante F Lester Height Measured 2022-12-12 13:34:00 61.00 inches Dante F Lester Body Temperature 2022-12-12 13:34:00 97.80 degrees Dante F Lester Heart Rate 2022-12-12 13:34:00 65.00 /min Lexy en F Lester Respiratory Rate 2022-12-12 13:34:00 Danet F Lester BP Systolic 2022-12-12 13:34:00 112 mm[Hg] Step hen F Lester BP Diastolic 2022-12-12 13:34:00 74 mm[Hg] Zack phen F Lester Weight Measured 2022-12-12 13:34:00 162.80 pounds Dante Batista Procedures Procedure Date / Time Performed Performing Clinician Source POCT TEST 2023-04-09 05:20:00 Deanna Olguin [facility] ASSIGNMENT OF BENEFITS 2023-04-09 04:19:09 Docto r Unassigned, [place] [facility] NOTICE OF PRIVACY PRACTICES 2023-04-09 03:21:17 Doctor Unassigned, [place] [facility] CONSENT/REFUSAL FOR DIAGNOSIS AND TREATMENT 2023-04-09 03:19:40 Doctor Unassigned, [place] [facility] POCT TEST 2023-04-09 00:00:00 Jaylon Snyder [facility] CONSENT/REFUSAL FOR DIAGNOSIS AND TREATMENT 2022-09-18 15:26:49 Doctor Unassigned, [place] [facility] ASSIGNMENT OF BENEFITS 2022-09-18 15:26:30 Docto r Unassigned, [place] [facility] GC & CHLAMYDIA AMPLIFIED ASSAY 2022-05-18 16:13:00 Elva Snyder [facility] TRICHOMONAS AMPLIFIED ASSAY 2022-05-18 16:13:00 Elva Snyder [facility] PO[facility] 2022[facility]05-18 [facility] CHLAM[facility]DIA [facility]PLIFIED ASSAY 2021-09-16 20:53:00 Elva Snyder [facility] GALV ONLY - VAGINAL PATHOGENS BY NUCLEIC ACID TESTING 2021-09-16 20:53:00 Elva Snyder [facility] Encounters Start Date/Time End Date/Time Encounter Type Admission Type Attending [facility] Facility Care Department Encounter ID Source 2023-11-13 09:06:19 2023-11-13 09:06:19 Outpatient SFA [facility] [id number] Dante Payam Lester 2023-11-13 00:00:00 2023-11-13 00:00:00 Outpatient Visit CANDI [id number] Dante Batista 2023-11-07 09:15:00 2023-11-07 09:15:00 Outpatient R [facility] [id number] [facility] 2023-11-06 09:00:00 2023-11-06 09:00:00 Outpatient SPENCER RODRIGUEZ [facility] [id number] [facility] 2023-11-06 09:00:00 2023-11-06 09:00:00 Outpatient SPENCER RODRIGUEZ [facility] [id number] [facility] 2023-09-25 10:29:41 2023-09-25 10:29:41 Outpatient SFA [facility] [id number] Dante Batista 2023-05-14 10:00:00 2023-05-14 10:00:00 Outpatient R [facility] [id number] [facility] 2023-04-11 00:00:00 2023-04-11 00:00:00 Case Management Ann Chayo Socorro [facility] [id number] 350.1.13.10 4.2.7.2.686 [id number] [facility] 2023-04-09 09:00:00 2023-04-09 09:13:18 Outpatient R ELVA SNYDER CHERYAL [facility] [id number] [facility] 2023-04-09 09:00:00 2023-04-09 09:13:18 Office Visit Elva Snyder [facility] [id number] 350.1.13.10 4.2.7.2.686 [id number] [facility] 2023-04-08 22:28:00 2023-04-09 00:50:00 Emergency Deanna Olguin G [facility] [id number] 350.1.13.10 4.2.7.2.686 [id number] [facility] 2023-04-08 22:28:00 2023-04-09 00:50:00 Emergency X DEANNA OLGUIN RUST ERT [id number] [facility] 2023-04-02 15:00:00 2023-04-02 15:00:00 Outpatient R ELVA SNYDER CHERYAL [facility] [id number] [facility] 2022-11-28 11:00:00 2022-11-28 11:00:00 Outpatient R ELVA SNYDER CHERYAL [facility] [id number] [facility] 2022-09-18 09:30:00 2022-09-18 10:18:01 Office Visit Bessie Snyderyal [facility] 1.2840.114 350.1.13.10 4.2.7.2.686 [id number] 134 [id number] [facility] 2022-09-18 09:30:00 2022-09-18 10:18:01 Outpatient R LILLIANELVA LILLIAN ELVA [facility] [id number] [facility] 2022-09-18 09:30:00 2022-09-18 09:30:00 Outpatient R LILLIANELVA LILLIANELVA [facility] [id number] [facility] 2022-09-18 00:00:00 2022-09-18 00:00:00 Orders Only Doctor Unassigned, [place] [facility] 1.2840.114 350.1.13.10 4.2.7.2.686 [id number] [facility] 2022-09-11 00:00:00 2022-09-11 00:00:00 Pre Visit Outreach Mita Waldron 1.2840.114 350.1.13.10 4.2.7.2.686 [id number] [facility] 2022-05-18 11:00:00 2022-05-18 11:10:43 Outpatient R LILLIAN BESSIENAMAN LILLIAN ELVA [facility] [id number] [facility] 2022-05-18 11:00:00 2022-05-18 11:10:43 Office Visit LillianElva [facility] 1.284.114 350.1.13.10 4.2.7.2.686 [id number] [facility] 2022-05-01 14:00:00 2022-05-01 15:40:38 Outpatient R BESSIE SNYDERNAMAN ELVA SNYDER [facility] [id number] [facility] 2022-05-01 14:00:00 2022-05-01 15:40:38 Office Visit Elva Snyder [facility] 1.2.840.114 350.1.13.10 4.2.7.2.686 [id number] [facility] 2021-11-21 00:00:00 2021-11-21 00:00:00 Telephone TaraElva arellano [facility] 1.2.840.114 350.1.13.10 4.2.7.2.686 [id number] 134 [id number] [facility] 2021-09-30 00:00:00 2021-09-30 00:00:00 [facility] 1.2.840.114 350.1.13.10 4.2.7.2.686 [id number] [facility] 2021-09-19 00:00:00 2021-09-19 00:00:00 [facility] 1.2.840.114 350.1.13.10 4.2.7.2.686 [id number] 134 [id number] [facility] 2021-09-19 00:00:00 2021-09-19 00:00:00 Case Management Elva Snyder [facility] 1.2.840.114 350.1.13.10 4.2.7.2.686 [id number] [facility] 2021-09-16 14:00:00 2021-09-16 14:53:30 Office Visit TaraElva arellano Spencer Castillo [facility] 1.2.840.114 350.1.13.10 4.2.7.2.686 [id number] 134 [id number] [facility] 2021-09-16 14:00:00 2021-09-16 14:53:30 Outpatient R SPENCER CASTILLO [facility] [id number] [facility] 2021-09-16 14:00:00 2021-09-16 14:53:30 Office Visit Elva Snyder [facility] [id number] 350.1.13.10 4.2.7.2.686 [id number] [facility] 2021-09-16 14:00:00 2021-09-16 14:53:30 Outpatient SPENCER RODRIGUEZ [facility] [id number] [facility] Results Test Description Test Time Test Comments Results Result Co mments Source TRICHOMONAS, NAAT, [id number] 18:57:13* Test Item Value Reference Range Interpretation Comme nts TRICHOMONAS, NAAT, URINE (test code = 30007) NEGATIVE NEGATIVE Testing is perfo rmed with Mitch CARMELITA 6800/8800 method usingreal-time polymerase chain reaction (PCR) method. A negative result does not exclude low level infection, specimensampling error, or collection error. RPR REFLEX TO T. PALLIDUM - [id number] 05:36:22* Test Item Value Reference Range Interpretation Comme nts RPR (test code = 68064) NON-REACTIVE NON-REACTIVE RPR TITER (test code = 3500) NOT INDIC. TITER NOT INDIC. HIV 1/2 4TH GEN, RFLX [id number] 04:57:10* Test Item Value Reference Range Interpretation Comme nts HIV 1/2 4TH GEN, RFLX CONF ( test code = 3514) NON-REACTIVE NON-REACTIVE HEPATITIS A [id number] 04:57:10* Test Item Value Reference Range Interpretation Comme nts HEPATITIS A IgM (test code = 2728) NON-REACTIVE NON-REACTIVE UNLESS OTHERW ISE INDICATED, ALL TESTING PERFORMED AT [facility] [address] [place] [id number] [employer] PROCESSING: TSERING SOSA M.D. CLIA NUMBER [id number] [place] [id number] HEPATITIS PANEL, [id number] 04:57:10* Test Item Value Reference Range Interpretation [...] infection. INTERPRETATION HEPATITIS B: (test code = 44914) (NOTE) Hepatitis B sero logy shows no evidence of past exposure to orcurrent infection with hepatitis B virus. No evidence of hepatitis Bimmunization is identified. INTERPRETATION HEPATITIS C: (test code = 13430) (NOTE) Hepatitis C sero logy shows no evidence of exposure to hepatitisC virus at this time. It can take up to 12 months after exposure tothe hepatitis C virus for antibodies to become detectable in the blood in certain patients. LIPID [id number] 03:27:34* Test Item Value Reference Range Interpretation [...] SPECIMENS. FOR MOREINFORMATION, SEE CLIENT ANNOUNCEMENT AT [email or web address] RISK RATIO LDL/HDL (test code = 2238) 1.15 RATIO <3.22 COMPREHENSIVE METABOLIC [id number] 03:27:34* Test Item Value Reference Range Interpretation Comme nts GLUCOSE (test code = 2217) 73 MG/DL 70-99 BUN (test code = 2208) 12 MG/DL 6-20 CREATININE (test code = 2214) 0.91 MG/DL 0.60-1.30 eGFR (2020 CKD-EPI) (test co de = 40324) 91 ML/MIN/1.73 >60 CALC BUN/CREAT (test code = 2234) 13 RATIO 6-28 SODIUM (test code = 2230) 138 MEQ/L 133-146 POTASSIUM (test code = 2227) 4.2 MEQ/L 3.5-5.4 CHLORIDE (test code = 2214) 103 MEQ/L 95-107 CARBON DIOXIDE (test code = 2205) 23 MEQ/L 19-31 CALCIUM (test code = 2208) 9.6 MG/DL 8.5-10.5 PROTEIN, TOTAL (test code = 2228) 7.2 G/DL 6.1-8.3 ALBUMIN (test code = 2200) 4.1 G/DL 3.5-5.2 CALC GLOBULIN (test code = 2239) 3.1 G/DL 1.9-3.7 CALC A/G RATIO (test code = 2233) 1.3 RATIO 1.0-2.6 BILIRUBIN, TOTAL (test code = 2206) 0.2 MG/DL <=1.2 ALKALINE PHOSPHATASE (test code = 2203) 79 U/L 38-117 AST (test code = 2217) 20 U/L 9-40 ALT (test code = 2218) 15 U/L 5-40 HEMOGLOBIN [id number] 02:58:37* Test Item Value Reference Range Interpretation Comme nts HEMOGLOBIN A1c (test code = 08665) 5.2 % 4.2-5.6 CBC W/AUTO DIFF WITH [id number] 01:41:17* Test Item Value Reference Range Interpretation [...] = 1065) 0.0 /100 WBC'S See_Comment [Automated messa ge] The system which generated this result [...] 0.00-0.10 ABS NUCLEATED RBCS (test code = 96712) 0.00 K/UL 0.00-0.11 LIPID [id number] 00:00:00* Test Item Value Reference Range Interpretation Comme nts CHOLESTEROL (test code = 2210) 197 MG/DL TRIGLYCERIDES (test code = 2232) 58 MG/DL HDL CHOLESTEROL (test code = 2220) 85 MG/DL CALC LDL CHOL (test code = 2237) 98 MG/DL RISK RATIO LDL/HDL (test cod e = 2238) 1.15 RATIO Dante BatistaHEMOGLOBIN [id number] 00:00:00* Test Item Value Reference Range Interpretation Comme nts HEMOGLOBIN A1c (test code = 01424) 5.2 % Dante BatistaCBC W/AUTO [id number] 00:00:00* Test Item Value Reference Range Interpretation Comme nts WBC (test code = 1001) 6.8 K/UL RBC (test code = 1002) 4.80 M/UL HEMOGLOBIN (test code = 1003) 14.2 G/DL HEMATOCRIT (test code = 1004) 44.3 % MCV (test code = 1005) 92.3 fL MCH (test code = 1006) 29.6 PG MCHC (test code = 1007) 32.1 G/DL RDW (test code = 1038) 12.7 % NEUTROPHILS (test code = 1008) 52.9 % LYMPHOCYTES (test code = 1010) 34.7 % MONOCYTES (test code = 1011) 7.1 % EOSINOPHILS (test code = 1012) 4.6 % BASOPHILS (test code = 1013) 0.6 % IMMATURE GRANULOCYTES (test code = 1036) 0.1 % NUCLEATED RBCS (test code = 1065) 0.0 /100WBC'S PLATELET COUNT (test code = 1015) 286 K/UL ABSOLUTE NEUTROPHILS (test c ode = 1066) 3.57 K/UL ABSOLUTE LYMPHOCYTES (test c ode = 1067) 2.34 K/UL ABSOLUTE MONOCYTES (test cod e = 1068) 0.48 K/UL ABSOLUTE EOSINOPHILS (test c ode = 1040) 0.31 K/UL ABSOLUTE BASOPHILS (test cod e = 1069) 0.04 K/UL ABS IMMATURE GRANULOCYTES (t est code = 1020) 0.01 K/UL ABS NUCLEATED RBCS (test cod e = 56761) 0.00 K/UL Dante F LesterCOMPREHENSIVE METABOLIC [id number] 00:00:00* Test Item Value Reference Range Interpretation Comme nts GLUCOSE (test code = 2217) 73 MG/DL BUN (test code = 2208) 12 MG/DL CREATININE (test code = 2214) 0.91 MG/DL eGFR (2020 CKD-EPI) (test co de = 56637) 91 ML/MIN/1.73 CALC BUN/CREAT (test code = 2235) 13 RATIO SODIUM (test code = 2231) 138 MEQ/L POTASSIUM (test code = 2228) 4.2 MEQ/L CHLORIDE (test code = 2215) 103 MEQ/L CARBON DIOXIDE (test code = 2206) 23 MEQ/L CALCIUM (test code = 2209) 9.6 MG/DL PROTEIN, TOTAL (test code = 2229) 7.2 G/DL ALBUMIN (test code = 2201) 4.1 G/DL CALC GLOBULIN (test code = 2240) 3.1 G/DL CALC A/G RATIO (test code = 2234) 1.3 RATIO BILIRUBIN, TOTAL (test code = 2207) 0.2 MG/DL ALKALINE PHOSPHATASE (test code = 2204) 79 U/L AST (test code = 2218) 20 U/L ALT (test code = 2219) 15 U/L Dante BatistaHEPATITIS PROFILE (A,B,C)2023-09-26 00:00:00* Test Item Value Reference Range Interpretation Comme nts HEPATITIS A TOTAL AB (test c ode = 2725) REACTIVE HEPATITIS B SURF AG (test co de = 2739) NON-REACTIVE HEP B CORE TOTAL AB (test co de = 2729) NON-REACTIVE HEPATITIS B SURFACE AB (test code = 2737) NON-REACTIVE HEPATITIS C ANTIBODY (test c ode = 4687) NON-REACTIVE INTERPRETATION HEPATITIS A: (test code = 2552) (NOTE) INTERPRETATION HEPATITIS B: (test code = 01676) (NOTE) INTERPRETATION HEPATITIS C: (test code = 85182) (NOTE) Dante Hare AustinCT/NG, TMA, [id number] 00:00:00* Test Item Value Reference Range Interpretation Comme nts CHLAMYDIA, NAAT, URINE (test code = 16926) NEGATIVE GONORRHEA, NAAT, URINE (test code = 33205) NEGATIVE Dante BatistaHIV 1/2 4TH GEN, RFLX [id number] 00:00:00* Test Item Value Reference Range Interpretation Comme nts HIV 1/2 4TH GEN, RFLX CONF ( test code = 3514) NON-REACTIVE Dante Hare LesterRPR REFLEX TO T. PALLIDUM - [id number] 00:00:00* Test Item Value Reference Range Interpretation Comme nts RPR (test code = 13714) NON-REACTIVE RPR TITER (test code = 3500) NOT INDIC. TITER Dante BatistaTRICHOMONAS, URINE, [id number] 00:00:00* Test Item Value Reference Range Interpretation Comme nts TRICHOMONAS, NAAT, URINE (te st code = 24060) NEGATIVE Dante Hare IfeomaPATITIS A IgM [REFLEX]2023-09-26 00:00:00* Test Item Value Reference Range Interpretation Comme nts HEPATITIS A IgM (test code = 2728) NON-REACTIVE Dante F AustinPOCT [id number] 14:06:00* Test Item Value Reference Range Interpretation Comme nts POCT PREG (test code = 1605) Negative On board controls acceptable with C Line (test code = 3574) Yes POCT PREG LOT # (test code = 3575) POCT PREG TEST DATE ( test code = 3576) [id number] 14:06:00* Test Item Value Reference Range Interpretation Comme nts POCT PREG (test code = 1605) Negative On board controls acceptable with C Line (test code = 3574) Yes POCT PREG LOT # (test code = 3575) POCT PREG TEST DATE ( test code = 3576) [facility] [id number] 05:20:00* Test Item Value Reference Range Interpretation Comme nts POCT PREG (test code = 1605) Negative On board controls acceptable with C Line (test code = 3574) Yes POCT PREG LOT # (test code = 3575) [id number] POCT PREG TEST DATE ( test code = 3576) 2024 Lab Interpretation (test cod e = 94558-5) [facility], [id number] 18:01:58* Test Item Value Reference Range Interpretation Comme nts CHLAMYDIA, NAAT, URINE (test code = 80416) NEGATIVE NEGATIVE Testing is perfo rmed with Mitch CARMELITA 6800/8800 systems usingreal-time polymerase chain reaction (PCR) method. A negative result does not exclude low level infection, specimensampling error, or collection error. GONORRHEA, NAAT, URINE (test code = 27334) NEGATIVE NEGATIVE Testing is perfo rmed with Mithc CARMELITA 6800/8800 systems usingreal-time polymerase chain reaction (PCR) method. A negative result does not exclude low level infection, specimensampling error, or collection error. TRICHOMONAS, NAAT, [id number] 15:41:57* Test Item Value Reference Range Interpretation Comme nts TRICHOMONAS, NAAT, URINE (test code = 43889) NEGATIVE NEGATIVE Testing is perfo rmed with Mitch CARMELITA 6800/8800 method usingreal-time polymerase chain reaction (PCR) method. A negative result does not exclude low level infection, specimensampling error, or collection error. HERPES SIMPLEX AB, [id number] 14:19:52* Test Item Value Reference Range Interpretation [facility] HERPES SIMPLEX AB, IgM (test code = 04521) 0.89 INDEX SEE BELOW INTERPRETATION U NITS RANGE ----- ----- NEGATIVE INDEX <=0.89 EQUIVOCAL INDEX 0.90-1.09 POSITIVE INDEX >=1.10 HIV 1/2 4TH GEN, RFLX [id number] 04:18:51* Test Item Value Reference Range Interpretation Comme [facility] HIV 1/2 4TH GEN, RFLX CONF ( test code = 3514) NON-REACTIVE NON-REACTIVE HEPATITIS PANEL, [id number] 04:18:51* Test Item Value Reference Range Interpretation [facility] HEPATITIS A IgM (test code = 14486) NON-REACTIVE NON-REACTIVE HEPATITIS B CORE IgM (test code = 4644) NON-REACTIVE NON-REACTIVE HEPATITIS B SURF AG (test code = 2739) NON-REACTIVE NON-REACTIVE HEPATITIS C ANTIBODY (test code = 4675) NON-REACTIVE NON-REACTIVE INTERPRETATION HEPATITIS A: (test code = 2552) (NOTE) Hepatitis A serology shows no evidence of acute hepatitis A. INTERPRETATION HEPATITIS B: (test code = 33121) (NOTE) Hepatitis B serology shows no evidence of acute hepatitis B andno indication of exposure to hepatitis B virus in the previous julio césar eight months. INTERPRETATION HEPATITIS C: (test code = 06334) (NOTE) Hepatitis C serology shows no evidence of exposure to hepatitisC virus at this time. It can take up to 12 months after exposure tothe hepatitis C virus for antibodies to become detectable in the blood in certain patients. HERPES SIMPLEX 1/2 AB, IgG [id number] 04:18:51* Test Item Value Reference Range Interpretation Comme [facility] HERPES SIMPLEX 1 AB, IgG (test code = 00354) 0.030 INDEX SEE BELOW INTERPRETATION U NITS RANGE ----- ----- NON-REACTIVE INDEX <1.000 REACTIVE INDEX >=1.000 HERPES SIMPLEX 2 AB, IgG (test code = 80256) 0.077 INDEX SEE BELOW INTERPRETATION U NITS RANGE ----- ----- NON-REACTIVE INDEX <1.000 REACTIVE INDEX >=1.000 UNLESS OTHERWISE INDICATED, ALL TESTING PERFORMED AT [facility] [address] [place] [address] SUPERVISOR FISH BAIT PROCESSING: TSERING SOSA M.D. IA NUMBER [id number] [facility] [place] [id number] RPR REFLEX TO T. PALLIDUM - [id number] 03:20:24* Test Item Value Reference Range Interpretation Comme nts RPR (test code = 70771) NON-REACTIVE NON-REACTIVE RPR TITER (test code = 3500) NOT INDIC. TITER NOT INDIC. HIV 1/2 4TH GEN, RFLX [id number] 00:00:00* Test Item Value Reference Range Interpretation Comme nts HIV 1/2 4TH GEN, RFLX CONF ( test code = 3514) NON-REACTIVE Dante Hare Khanh HEPATITIS [id number] 00:00:00* Test Item Value Reference Range Interpretation Comme nts HEPATITIS A IgM (test code = 47922) NON-REACTIVE HEPATITIS B CORE IgM (test c ode = 4644) NON-REACTIVE HEPATITIS B SURF AG (test co de = 2739) NON-REACTIVE HEPATITIS C ANTIBODY (test c ode = 4675) NON-REACTIVE INTERPRETATION HEPATITIS A: (test code = 2552) (NOTE) INTERPRETATION HEPATITIS B: (test code = 28677) (NOTE) INTERPRETATION HEPATITIS C: (test code = 03219) (NOTE) Dante Hare LesterCT/NG, TMA, [id number] 00:00:00* Test Item Value Reference Range Interpretation Comme nts CHLAMYDIA, NAAT, URINE (test code = 82581) NEGATIVE GONORRHEA, NAAT, URINE (test code = 19854) NEGATIVE Dante Hare LesterRPR REFLEX TO T. PALLIDUM - [id number] 00:00:00* Test Item Value Reference Range Interpretation Comme nts RPR (test code = 15466) NON-REACTIVE RPR TITER (test code = 3500) NOT INDIC. TITER Dante Hare LesterTRICHOMONAS, URINE, [id number] 00:00:00* Test Item Value Reference Range Interpretation Comme nts TRICHOMONAS, NAAT, URINE (te st code = 61113) NEGATIVE Dante BatistaHERPES SIMPLEX [id number] 00:00:00* Test Item Value Reference Range Interpretation Comme nts HERPES SIMPLEX AB, IgM (test code = 53338) 0.89 INDEX Dante BatistaHERPES SIMPLEX 1/2 [id number] 00:00:00* Test Item Value Reference Range Interpretation Comme nts HERPES SIMPLEX 1 AB, IgG (te st code = 89046) 0.030 INDEX HERPES SIMPLEX 2 AB, IgG (te st code = 74734) 0.077 INDEX Dante Hare AustinPOCT [id number] 16:05:00* Test Item Value Reference Range Interpretation Comme nts POCT PREG (test code = 1605) Negative On board controls acceptable with C Line (test code = 3574) Yes POCT PREG LOT # (test code = 3575) POCT [facility] TEST DATE ( test code = 3576[id number] 16:05:00* Test Item Value Reference Range Interpretation Comme nts POCT PREG (test code = 1605) Negative On board controls acceptable with C Line (test code = 3574) Yes POCT PREG LOT # (test code = 3575) POCT PREG TEST DATE ( test code = 3576) [facility] [id number] 19:14:00* Test Item Value Reference Range Interpretation Comme nts POCT PREG (test code = 1605) Negative On board controls acceptable with C Line (test code = 3574) Yes POCT PREG LOT # (test code = 3575) POCT PREG TEST DATE ( test code = 3576) [facility] [id number] 19:14:00* Test Item Value Reference Range Interpretation Comme nts POCT PREG (test code = 1605) Negative On board controls acceptable with C Line (test code = 3574) Yes POCT PREG LOT # (test code = 3575) POCT PREG TEST DATE ( test code = 3576) [facility] Notes Date/Time Note Provider Source 2023-11-13 00:00:00 [id number] uV/I2/[id number] dPg0/[id number]/2023-11-13 T00:00:00+ + +| Plan Activity | Plan Date |+ =========+ +| STD PANEL | 2022-12-12 || TRICHOMONAS | || chlamydia/ GC. | || | || Sexual hygiene and use of condoms advised. | || The only way to avoid sexually transmitted diseases is to not have vaginal, | || anal, or oral sex. | || Be in a long-term mutually monogamous relationship with a partner who has been | || tested and has negative STD test results; | || Use latex condoms the right way every time you have sex. | |+ ---------+ +| HPV #1 TODAY | 2022-12-12 || REPEAT HPV #2 IN 2 MONTHS and hpv#3 in 6 months | || VIS FORM PROVIDED | |+ ---------+ +| Avoid sugary snacks and drinks. Encourage to drink more water. | 2023-09-25 |+ ---------+ +| Exercise 15-30 minutes a day for 5 days of a week. | 2023-09-25 |+ ---------+ +| Avoid processed foods. Eat more fruits and vegetables. | 2023-09-25 |+ ---------+ +| 23 y/o BRITTNI | 2023-09-25 |+ ---------+ +| CBC | 2023-09-25 |+ ---------+ +| CMP | 2023-09-25 || A1C | |+ ---------+ +| LIPID-FASTING | 2023-09-25 |+ ---------+ +| UA | 2023-11-13 || URINE CX | || cephalexin 25o mg q 6 hrs x 5 days- aware of possible hypersensitivity | || pt is | |+ ---------+ +| WET MOUNT | 2023-11-13 || pt is | |+ ---------+ +[id number] of TreatmentLNCARE PLANTXTSFA|[id number] for patient [id number] Section NarrativeNARRATIVEFormatted C-CDA narrative textSFAStdana Zaman [facility]2024-04-30T00:00:00 Dante Zaman [facility]"
[2023-12-11] MEDS ORDERED: ONDANSETRON 4 MG/2 ML VIAL ONE (04:41)
[2023-12-11] MEDS ORDERED: ACETAMINOPHEN 500 MG TAB ONE (04:42)
[2023-12-11] MEDS ORDERED: FENTANYL CITR 100 MCG/2 ML ONE ×2 (04:57→05:40)
[2023-12-11 05:24] LABS: Absolute Basophils 0.1 K/uL (0-0.5); Absolute Eosinophils 0.2 K/uL (0-0.5); Absolute Lymphocytes (CBC) 2.2 K/uL (0.7-4.9); Absolute Monocytes 1.1 K/uL (0.1-1.3); Absolute Neutrophil 12.8 K/uL (1.8-8.0); Basophils % 0.4 % (0-1.3); Eosinophils % 1.4 % (0-4.4); Hematocrit 40.3 % (36.0-45.0); Hemoglobin 13.6 g/dL (12.0-15.0); Lymphocytes % 13.6 % (15.3-44.8); MCH 30.4 pg (27.0-35.0); MCHC 33.7 g/dL (32.0-36.0); MPV 7.6 fL (7.6-11.3); Monocytes % 6.7 % (3.3-12.3); Neutrophils % 77.9 % (41.7-73.7); Nucleated Red Blood Cells % 0.2 % (0-0); Platelets 273 thou/uL (152-406); RBC Red Blood Cell Count 4.48 M/uL (3.86-4.86)
[2023-12-11] MEDS ORDERED: NA CHLORIDE 0.9% 1,000 ML ONE (05:38)
[2023-12-11 05:42] LABS: Anion Gap 8.4 mEq/L (5.0-15.0); Potassium 3.4 mEq/L (3.5-5.1)
[2023-12-11] MEDS ORDERED: MORPHINE 4 MG/ML SYR ONE ×3 (07:25→12:12)
[2023-12-11 10:13] LABS: Specific Gravity 1.028 (1.005-1.030); Sqamous Epithelial <5 /HPF (None Seen); Urine Bacteria None Seen /HPF (<20); Urine Bilirubin NEGATIVE (Negative); Urine Blood 3+ (OVER) (Negative); Urine Clarity Turbid (Clear); Urine Color Light-Yellow (Yellow); Urine Culture Reflex Order NOT NEEDED; Urine Glucose NEGATIVE (Negative); Urine Ketones 2+ (Negative); Urine Micro Reflex YN NO BILL MICROSCOPIC; Urine Mucus 1+ /HPF (None Seen); Urine Nitrite NEGATIVE (Negative); Urine Protein TRACE (Negative); Urine RBC >50 /HPF (None Seen); Urine Urobilinogen Normal (Normal); Urine WBC <5 /HPF (<5); Urine pH 6.5 (5.0-7.0)
--- NOTE | 2023-12-11 10:32 | RAD REPORT ---
EXAM DESCRIPTION: MRI - Abdomen Wo Cont - 12/11/2023 9:47 am CLINICAL HISTORY: appendicitis eval, COMPARISON: No comparisons TECHNIQUE: Multiplanar multisequence MRI of the abdomen and pelvis, obtained without IV contrast. FINDINGS: No wall thickening, inflammatory fat stranding, or abnormal fluid collections are identifi ed in the right lower quadrant to suggest ongoing acute appendicitis, allowing for the degree of ellen on artifact present, as well as susceptibility signal abnormality related to bowel gas in the cecum. The liver, spleen, pancreas, kidneys, and included lower lungs are unremarkable, allowing for motion artifact. Layering sludge within the gallbladder. No intra or extrahepatic biliary ductal dilation. Trace free fluid in the pelvis and minimal amount posterior to the cecum as well, likely physiologic. Gravid uterus, with placenta present at the fundus,, and fetus seen in the breech presentation. Some heterogeneity is seen at the anterior uterine wall underlying the placental implantation. This region was not well assessed on ultrasound, and could relate to small lacunar spaces, although possibility of a T2 hypointense collection cannot be entirely excluded. The visualized bowel is otherwise unremarkable. Bladder is unremarkable. No suspicious osseous lesion s. IMPRESSION: No findings to suggest acute appendicitis, within limits of motion artifact as mentioned above. Gravid uterus, with placenta present at the fundus. Heterogeneity seen at the anterior uterine wall u nderlying the placental implantation. While this likely relates to venous lacunes, possibility of a s mall placental abruption cannot be entirely excluded. Close obstetric follow-up is recommended. The findings were communicated to Hussain Luna on 12/11/2023 at 10:21 hours.
--- NOTE | 2023-12-11 11:06 | ER ---
Nurse's Notes [facility] Name: Michelle Conner Age: 23 yrs Sex: Female : 2000 Arrival Date: 12/11/2023 Time: 03:43 Bed 14 Private MD: Diagnosis: Lower abdominal pain, unspecified;Abnormal uterine and vaginal bleeding, unspecified Presentation: 12/10 04:07 Chief complaint: Patient states: I think I am having a miscarriage. The cramping jb4 started yesterday, it was mild at first, I went to bed and woke up bleeding. I am on my second pad. the bleeding is getting worse. Coronavirus screen: At this time, the client does not indicate any symptoms associated with coronavirus-19. Ebola Screen: No symptoms or risks identified at this time. Initial Sepsis Screen: Does the patient meet any 2 criteria? No. Patient's initial sepsis screen is negative. Does the patient have a suspected source of infection? No. Patient's initial sepsis screen is negative. Risk Assessment: Do you want to hurt yourself or someone else? Patient reports no desire to harm self or others. Onset of symptoms was December 11, 2023. Transition of care: patient was not received from another setting of care. 04:07 Method Of Arrival: Ambulatory jb4 04:07 Acuity: NAKITA 3 jb4 MIDWIFE: 12:15 LMP 09/20/2023, unknown me1 Historical: - Allergies: 04:09 PENICILLINS; jb4 - PMHx: 04:09 ADD/ADHD; Migraines; jb4 - PSHx: 04:09 Tonsillectomy; jb4 - Immunization history:: Adult Immunizations up to date. - Infectious Disease History:: Denies. - Social history:: Smoking status: Patient denies any tobacco usage or history of. Screenin:[facility] ED Fall Risk Assessment (Adult) History of falling in the last 3 months, jw7 including since admission No falls in past 3 months (0 pts) Confusion or Disorientation No (0 pts) Intoxicated or Sedated No (0 pts) Impaired Gait No (0 pts) Mobility Assist Device Used No (0 pt) Altered Elimination No (0 pt) Score/Fall Risk Level 0 - 2 = Low Risk Oriented to surroundings, Maintained a safe environment, Educated pt \T\ family on fall prevention, incl call for assistance when getting out of bed. Abuse screen: Denies threats or abuse. Denies injuries from another. Nutritional screening: No deficits noted. Tuberculosis screening: No symptoms or risk factors identified. Assessment: 04:15 General: Appears in no apparent distress. uncomfortable, Behavior is cooperative, jw7 anxious, crying, Reports vaginal bleeding that is progressively getting worse. Pain: Complains of pain in abdomen Pain does not radiate. Pain currently is 10 out of 10 on a pain scale. Quality of pain is described as crampy, Pain began gradually, Is continuous. Neuro: Level of Consciousness is awake, alert, obeys commands, Oriented to person, place, time, situation, Appropriate for age. Cardiovascular: Heart tones S1 S2 present Capillary refill < 3 seconds Clubbing of nail beds is absent JVD is absent Patient's skin is warm and dry. Respiratory: Airway is patent Trachea midline Respiratory effort is even, unlabored, Respiratory pattern is regular, symmetrical. GI: Abdomen is round non-distended, Bowel sounds present X 4 quads. Abd is soft Abdomen is tender to palpation Reports cramping. : No deficits noted. No signs and/or symptoms were reported regarding the genitourinary system. EENT: No deficits noted. No signs and/or symptoms were reported regarding the EENT system. Derm: Skin is intact, is healthy with good turgor, Skin is dry, Skin is normal, Skin temperature is warm. Musculoskeletal: Circulation, motion, and sensation intact. Range of motion: intact in all extremities. 05:15 Reassessment: Patient appears in no apparent distress at this time. No changes from jw7 previously documented assessment. Patient and/or family updated on plan of care and expected duration. Pain level reassessed. Patient is alert, oriented x 3, equal unlabored respirations, skin warm/dry/pink. 06:13 Reassessment: Patient appears in no apparent distress at this time. Patient and/or jw7 family updated on plan of care and expected duration. Pain level reassessed. Patient is alert, oriented x 3, equal unlabored respirations, skin warm/dry/pink. Patient states symptoms have improved. 07:32 General: Appears uncomfortable, Behavior is anxious, crying. Pain: Complains of pain in iw suprapubic area, right lower quadrant and left lower quadrant Pain currently is 10 out of 10 on a pain scale. Neuro: Level of Consciousness is awake, alert, obeys commands, Oriented to person, place, time, situation, Moves all extremities. Full function. Respiratory: Respiratory effort is even, unlabored, Respiratory pattern is regular. : Reports vaginal bleeding that is bright red. Derm: Skin is intact, is healthy with good turgor. Musculoskeletal: Range of motion: intact in all extremities. 09:21 Reassessment: pt remains in MRI. iw 10:30 Reassessment: Patient appears in no apparent distress at this time. Patient and/or iw family updated on plan of care and expected duration. Pain level reassessed. pt still in pain after MRI, Dr. Martinez notified, new orders placed. 11:54 Reassessment: report given to Sanna at [facility] ER. Vital Signs: 03:50 BP 134 / 82; Pulse 76; Resp 20 S; Pulse Ox 98% on R/A; jw7 04:07 BP 134 / 82; Pulse 76; Resp 16; Temp 98.5(O); Pulse Ox 100% on R/A; Weight 56.7 kg (R); jb4 Height 5 ft. 2 in. (R); 05:00 BP 144 / 90; Pulse 57; Resp 19 S; Pulse Ox 100% on R/A; jw7 06:00 BP 143 / 91; Pulse 60; Resp 18 S; Pulse Ox 100% on R/A; jw7 10:37 BP 130 / 79; Pulse 76; Resp 16; Pulse Ox 100% on R/A; Pain 8/10; iw 11:30 BP 115 / 72; Pulse 53; Resp 16; Pulse Ox 100% on R/A; me1 04:07 Body Mass Index 22.86 (56.70 kg, 157.48 cm) jb4 10:37 Pain Scale: Adult iw ED Course: 03:50 Patient arrived in ED. gm2 03:51 Alec Lind MD is Attending Physician. ec2 04:03 Michelle Shine, RN is Primary Nurse. jw7 04:09 Triage completed. jb4 04:09 Arm band placed on right wrist. jb4 04:15 Patient has correct armband on for positive identification. Bed in low position. Call jw7 light in reach. Side rails up X2. Provided Education on: Use of Call Light. 04:21 No provider procedures requiring assistance completed. jw7 04:37 Transvaginal OB US In Process Unspecified. EDMS 07:05 Report given to FLAKO Azar. jw7 07:09 Attending Physician role handed off by Alec Lind MD ec2 07:09 Raphael Martinez DO is Attending Physician. ec2 07:26 Nissa Polanco RN is Primary Nurse. iw 09:49 Abdomen Wo Cont In Process Unspecified. EDMS 09:49 Pelvis Wo Cont In Process Unspecified. EDMS 12:04 Patient transferred, IV remains in place. iw Administered Medications: 05:06 Drug: Acetaminophen PO 1000 mg PO once Route: PO; jw7 06:43 Follow up: Response: No adverse reaction; Marked relief of symptoms jw7 05:06 Drug: Ondansetron IVP 4 mg IVP once; over 2 minutes Route: IVP; Site: right antecubital;jw7 06:43 Follow up: Response: No adverse reaction; Marked relief of symptoms jw7 05:06 Drug: fentaNYL (PF) IVP 25 mcg IVP once Route: IVP; Site: right antecubital; jw7 06:43 Follow up: Response: No adverse reaction; Marked relief of symptoms jw7 05:45 Drug: NS 0.9% IV 1000 ml IV at 1 bolus Per protocol; 1000 mL bolus Route: IV; Rate: 1 jw7 bolus; Site: right antecubital; 06:43 Follow up: Response: No adverse reaction; IV Status: Completed infusion; IV Intake: jw7 1000ml 05:45 Drug: fentaNYL (PF) IVP 50 mcg IVP once Route: IVP; Site: right antecubital; jw7 06:43 Follow up: Response: No adverse reaction; Marked relief of symptoms; Pain is decreased jw7 07:31 Drug: morphine IVP or IV 4 mg IVP once over 4 mins Route: IVP; Infused Over: 4 mins; iw Site: right forearm; 10:30 Follow up: Response: No adverse reaction; Pain is unchanged, physician notified iw 10:36 Drug: morphine IVP or IV 4 mg IVP once over 4 mins Route: IVP; Infused Over: 4 mins; iw Site: right antecubital; 12:12 Follow up: Response: No adverse reaction iw 12:15 Drug: morphine IVP or IV 4 mg IVP once over 4 mins Route: IVP; Infused Over: 4 mins; me1 Site: right antecubital; 12:15 Follow up: Response: No adverse reaction; Pain is decreased me1 Medication: 04:21 VIS not applicable for this client. jw7 Intake: 06:43 IV: 1000ml; Total: 1000ml. jw7 Outcome: 11:05 ER care complete, transfer ordered by . ms3 12:11 Transferred by ground EMS [place] to [facility], Transfer form iw completed. X-rays sent w/ patient. Note: [place] 12:11 Condition: good 12:11 Instructed on the need for transfer, Demonstrated understanding of instructions, 12:18 Patient left the ED. me1 Signatures: Dispatcher [employer] Nissa Escobar, RN RN iw Dae Hollingsworth RN RN jb4 Raphael Martinez, DO ms3 Michelle Shine RN FLAKO jw7 Krystin Ramos RN RN me1 Alec Lind MD MD 2 Dominique Ball 2 Corrections: (The following items were deleted from the chart) 05:06 04:15 Pain: Complains of pain in abdomen Pain does not radiate. Pain currently is 6 out jw7 of 10 on a pain scale. Quality of pain is described as crampy, Pain began gradually, Is continuous, jw7 10:39 10:15 Reassessment: Patient appears in no apparent distress at this time. Patient iw and/or family updated on plan of care and expected duration. Pain level reassessed. pt still in pain after MRI, Dr. Martinez notified, new orders placed iw
--- NOTE | 2023-12-11 11:06 | EDPHYS ---
Physician Documentation [facility] Name: Michelle Conner Age: 23 yrs Sex: Female : 2000 Arrival Date: 12/11/2023 Time: 03:43 Bed 14 Private MD: ED Physician Raphael Martinez HPI: 12/10 04:28 This 23 yrs old Black Female presents to ER via Ambulatory with complaints of Abdominal ec2 Cramping, Vaginal Bleeding, + Preg <12wks, Nausea/Vomiting. 04:28 Patient reports she is approximately 12 weeks and is concerned she is ec2 miscarrying. Patient is experiencing some vaginal bleeding as well as lower abdominal cramping. This is patient's first . . SNUFF MAKER: 12:15 LMP 09/20/2023, unknown me1 Historical: - Allergies: 04:09 PENICILLINS; jb4 - PMHx: 04:09 ADD/ADHD; Migraines; jb4 - PSHx: 04:09 Tonsillectomy; jb4 - Immunization history:: Adult Immunizations up to date. - Infectious Disease History:: Denies. - Social history:: Smoking status: Patient denies any tobacco usage or history of. ROS: 04:28 Constitutional: as per hpi ec2 Exam: 04:28 Constitutional: GEN: NAD Head: atraumatic Eyes: EOMI Ears: External ears are ec2 normal. CV: regular rate LUNGS: no respiratory distress ABD: non-distended, soft, not guarding, not rigid, lower abdominal TTP SKIN: no evidence of rashes MSK: no evidence of trauma NEURO: moves all extremities equally Vital Signs: 03:50 BP 134 / 82; Pulse 76; Resp 20 S; Pulse Ox 98% on R/A; jw7 04:07 BP 134 / 82; Pulse 76; Resp 16; Temp 98.5(O); Pulse Ox 100% on R/A; Weight 56.7 kg (R); jb4 Height 5 ft. 2 in. (R); 05:00 BP 144 / 90; Pulse 57; Resp 19 S; Pulse Ox 100% on R/A; jw7 06:00 BP 143 / 91; Pulse 60; Resp 18 S; Pulse Ox 100% on R/A; jw7 10:37 BP 130 / 79; Pulse 76; Resp 16; Pulse Ox 100% on R/A; Pain 8/10; iw 11:30 BP 115 / 72; Pulse 53; Resp 16; Pulse Ox 100% on R/A; me1 04:07 Body Mass Index 22.86 (56.70 kg, 157.48 cm) jb4 10:37 Pain Scale: Adult iw MDM: 03:51 Patient medically screened. ec2 04:28 Data reviewed: vital signs. ED course: Patient arrives today for evaluation of lower ec2 abdominal pain with associated vaginal bleeding in setting of . Lab work ordered, ultrasound ordered. Differential diagnosis includes miscarriage, normal , subchorionic hemorrhage.. 04:49 ED course: Patient is restless and generally uncomfortable, with the patient fentanyl ec2 for pain control for her lower abdominal pain. I instructed her regarding risks regarding and she was agreeable.. 05:17 ED course: Ultrasound shows live IUP, gestational age of 11 weeks and 5 days with ec2 appropriate heart rate. . 06:02 ED course: CBC shows leukocytosis 16.4. Metabolic profile shows hypokalemia with ec2 potassium of 3.4, hCG appropriately elevated at 46,000. Pending ABO Rh. . 06:11 ED course: Patient is Rh+, will currently forego RhoGAM.. ec2 06:29 ED course: On reassessment patient remains in persistent pain despite fentanyl x 2. ec2 Will obtain MRI of the abdomen pelvis to evaluate for other processes intra-abdominal and such as appendicitis. Patient does have leukocytosis noted.. 06:31 ED course: Will sign patient out to oncoming physician with pending MRI and ec2 reassessment. . 07:00 Transition of care: Care assumed from Alec Lind MD. ms3 07:08 Transition of care: After a detail discussion of the patient's case, care is ec2 transferred to Raphael Martinez DO. 08:55 Differential diagnosis: Appendicitis versus diverticulitis versus ectopic . ms3 11:27 Management of patient was discussed with the following: ER Physician Dr Beck. Fabiano ms3 considered the following discharge prescriptions or medication management in the emergency department Medications were administered in the Emergency Department. See MAR. Counseling: I had a detailed discussion with the patient and/or guardian regarding the historical points, exam findings, and any diagnostic results supporting the discharge/admit diagnosis, lab results, radiology results, the need for outpatient follow up, to return to the emergency department if symptoms worsen or persist or if there are any questions or concerns that arise at home. Response to treatment: There is no appreciated change of the patient's symptoms at this time, pain still the same. ED course: Discussed case with Dr Beck at [facility] ER and he accepts patient to [facility] ER.. 12/10 03:51 Order name: CBC with Diff; Complete Time: 06:02 ec2 12/10 03:51 Order name: BMP; Complete Time: 06:02 ec2 12/10 03:51 Order name: HCG-Quantitative; Complete Time: 06:02 ec2 12/10 03:51 Order name: Abo/rh Typing; Complete Time: 06:11 ec2 12/10 05:26 Order name: UAM; Complete Time: 10:21 ec2 12/10 03:51 Order name: Transvaginal OB US ec2 12/10 06:31 Order name: Abdomen Wo Cont; Complete Time: 10:42 EDMS 12/10 06:31 Order name: Pelvis Wo Cont; Complete Time: 10:42 EDMS Administered Medications: 05:06 Drug: Acetaminophen PO 1000 mg PO once Route: PO; jw7 06:43 Follow up: Response: No adverse reaction; Marked relief of symptoms jw7 05:06 Drug: Ondansetron IVP 4 mg IVP once; over 2 minutes Route: IVP; Site: right antecubital;jw7 06:43 Follow up: Response: No adverse reaction; Marked relief of symptoms jw7 05:06 Drug: fentaNYL (PF) IVP 25 mcg IVP once Route: IVP; Site: right antecubital; jw7 06:43 Follow up: Response: No adverse reaction; Marked relief of symptoms jw7 05:45 Drug: NS 0.9% IV 1000 ml IV at 1 bolus Per protocol; 1000 mL bolus Route: IV; Rate: 1 jw7 bolus; Site: right antecubital; 06:43 Follow up: Response: No adverse reaction; IV Status: Completed infusion; IV Intake: jw7 1000ml 05:45 Drug: fentaNYL (PF) IVP 50 mcg IVP once Route: IVP; Site: right antecubital; jw7 06:43 Follow up: Response: No adverse reaction; Marked relief of symptoms; Pain is decreased jw7 07:31 Drug: morphine IVP or IV 4 mg IVP once over 4 mins Route: IVP; Infused Over: 4 mins; iw Site: right forearm; 10:30 Follow up: Response: No adverse reaction; Pain is unchanged, physician notified iw 10:36 Drug: morphine IVP or IV 4 mg IVP once over 4 mins Route: IVP; Infused Over: 4 mins; iw Site: right antecubital; 12:12 Follow up: Response: No adverse reaction iw 12:15 Drug: morphine IVP or IV 4 mg IVP once over 4 mins Route: IVP; Infused Over: 4 mins; me1 Site: right antecubital; 12:15 Follow up: Response: No adverse reaction; Pain is decreased me1 Disposition Summary: 12/11/23 11:05 Transfer Ordered Reason: Higher level of care ms3 Condition: Stable ms3 Problem: new ms3 Symptoms: are unchanged ms3 Accepting Physician: Dr Beck(12/11/23 12:18) me1 Diagnosis - Lower abdominal pain, unspecified ms3 - Abnormal uterine and vaginal bleeding, unspecified ms3 Discharge Instructions: - Discharge Summary Sheet ec2 - Vaginal Bleeding During , First Trimester ec2 Forms: - Medication Reconciliation Form ms3 - SBAR form ms3 Critical care time excluding procedures: 11:29 Critical care time: Bedside Care: 40 minutes, Consultation: 10 minutes, Family ms3 Intervention: 5 minutes. Total time: 55 minutes Signatures: Dispatcher [employer] EDNissa Martinez RN RN iw Bryson, James RN FLAKO jb4 Raphael Martinez DO DO ms3 Michelle Shine RN RN jw7 Krystin Ramos RN RN me1 Alec Lind MD MD ec2 Corrections: (The following items were deleted from the chart) 03:52 03:52 CBC+H.LAB.BRZ ordered. EDMS EDMS 03:52 03:52 BASIC METABOLIC PANEL+C.LAB.BRZ ordered. EDMS EDMS 03:52 03:52 QUANTITATIVE HCG+C.LAB.BRZ ordered. EDMS EDMS 03:52 03:52 ABO/RH TYPING+BB.LAB.BRZ ordered. EDMS EDMS 03:52 03:52 Transvaginal Ob+US.RAD.BRZ ordered. EDMS EDMS 05:31 04:28 Patient reports she is approximately 12 weeks and is concerned she is ec2 miscarrying. Patient is experiencing some vaginal bleeding as well as lower abdominal cramping.. ec2 09:56 09:56 Urinalysis+U.LAB.BRZ ordered. EDMS EDMS 11:27 11:05 Dr tomlin3 ms3 12:18 11:27 Dr Beck ms3 me1
[2023-12-11 13:06] VITALS: TEMP 98.5; O2SAT 100
[2023-12-11 13:25] VITALS: BP 115/72
--- NOTE | 2023-12-11 17:30 | RAD REPORT ---
EXAM DESCRIPTION: US - Transvaginal OB - 12/11/2023 4:36 am CLINICAL HISTORY: 23 years Female, and vaginal bleeding COMPARISON: None. TECHNIQUE: Complete first trimester obstetrical ultrasound obtained with transvaginal and transabdom inal imaging. FINDINGS: Uterus: The uterus measures 10.4 x 6.5 x 7.3 cm. Gestational sac: Qualitatively normal appearing gestational sac. pole: pole identified with a crown-rump length of 4.9 cm. heart motion: heart rate of 161 bpm. Yolk sac: Not definitely visualized. Placenta: Anterior. Right ovary: The right ovary measures 4.2 x 1.7 x 2.4 cm. Left ovary: Not visualized due to overlying structures. Adnexa: Additional adnexal findings. Free fluid: No free fluid. Duplex imaging: Color and spectral Doppler imaging demonstrate blood flow in the right ovary. IMPRESSION: 1. Single live intrauterine with estimated gestational age of 11 weeks, 5 days by crown-rump length. heart rate of 161 bpm. Close continued obstetrical follow-up recommended . Electronically signed by: Tim Cuevas DO 12/11/2023 05:07 AM CDT 4ZDM Due to temporary technical issues with the PACS/Fluency reporting system, reports are being signed by the in house radiologists without review as a courtesy to insure prompt reporting. The interpreting radiologist is fully responsible for the content of the report
== END 2023-12-11 12:18 | disposition short-term general hospital (02) ==
LOC: ER 03:43
DX: O20.9 Hemorrhage in early pregnancy, unspecified (principal); Z3A.12 12 weeks gestation of pregnancy
CPT/HCPCS: 85025; 81001; 80048; 36415; 86900; 86901; 84702; 74181; 72195; 76817; 99285; J3010 ×2; J2405; J7030

== ENCOUNTER 2024-04-17 10:14 | Emergency (ER) | payer BC ==
--- NOTE | 2024-04-17 10:54 | ER ---
Nurse's Notes [facility] Name: Michelle Conner Age: 23 yrs Sex: Female : 2000 Arrival Date: 04/17/2024 Time: 10:14 Bed 23 Private MD: Diagnosis: Superficial vaginal mucosal tear Presentation: 04/17 10:39 Chief complaint: Patient states: Pt reports she sustained laceration to vaginal area ss last night during intercourse. Coronavirus screen: Client denies travel out of the [place] in the last 14 days. Ebola Screen: Patient denies exposure to infectious person. Patient denies travel to an Ebola-affected area in the 21 days before illness onset. Complicating Factors: There are no complicating factors for this patient. Initial Sepsis Screen: Does the patient meet any 2 criteria? No. Patient's initial sepsis screen is negative. Does the patient have a suspected source of infection? No. Patient's initial sepsis screen is negative. Risk Assessment: Do you want to hurt yourself or someone else? Patient reports no desire to harm self or others. Onset of symptoms was April 16, 2024. 10:39 Method Of Arrival: Ambulatory ss 10:39 Acuity: NAKITA 4 ss Historical: - Allergies: 10:41 PENICILLINS; ss - PMHx: 10:41 ADD/ADHD; Migraines; ss - PSHx: 10:41 Tonsillectomy; ss - Immunization history:: unknown. - Infectious Disease History:: Denies. - Social history:: Smoking status: Patient denies any tobacco usage or history of. - Family history:: not pertinent. - Hospitalizations: : No recent hospitalization is reported. Screenin:42 Abuse screen: Denies threats or abuse. Denies injuries from another. Nutritional ss screening: No deficits noted. Tuberculosis screening: Never had TB. 10:58 [facility] ED Fall Risk Assessment (Adult) History of falling in the last 3 months, ss including since admission No falls in past 3 months (0 pts) Confusion or Disorientation No (0 pts) Intoxicated or Sedated No (0 pts) Impaired Gait No (0 pts) Mobility Assist Device Used No (0 pt) Altered Elimination No (0 pt) Score/Fall Risk Level 0 - 2 = Low Risk Oriented to surroundings, Maintained a safe environment. Assessment: 10:42 General: Appears in no apparent distress. comfortable, Pt is smiling, laughing with ss family member at bedside and face timing another individual on the phone. Dr. Luna at bedside at this time with medical student, Aaliyah.. Behavior is calm, cooperative. Pain: Complains of pain in vaginal area Pain currently is 3 out of 10 on a pain scale. Neuro: Level of Consciousness is awake, alert, obeys commands, Oriented to person, place, time, situation. Respiratory: Airway is patent Respiratory effort is even, unlabored, Respiratory pattern is regular, symmetrical. EENT: Nares are clear. Derm: Skin is intact, is healthy with good turgor, Skin is dry, Skin is pink, warm \T\ dry. normal. Vital Signs: 10:39 BP 131 / 91; Pulse 80; Resp 16; Temp 98.5(O); Pulse Ox 100% on R/A; Weight 77.11 kg; ss Height 5 ft. 1 in. ; Pain 3/10; 10:39 Body Mass Index 32.12 (77.11 kg, 154.94 cm) ss 10:39 Pain Scale: Adult ss ED Course: 10:20 Patient arrived in ED. im 10:27 Hussain Luna MD is Attending Physician. rn 10:41 Triage completed. ss 10:41 Arm band placed on right wrist. ss 10:42 Patient has correct armband on for positive identification. Bed in low position. ss 10:58 Shirley Junior, FLAKO is Primary Nurse. ss 10:58 No provider procedures requiring assistance completed. Patient did not have IV access ss during this emergency room visit. Administered Medications: No medications were administered Medication: 10:42 VIS not applicable for this client. ss Outcome: 10:53 Discharge ordered by . rn 10:58 Patient left the ED. ss Signatures: Hussain Luna MD MD rn Blanchard, Shelby, RN RN Kena Love im
--- NOTE | 2024-04-17 10:54 | EDPHYS ---
Physician Documentation [facility] Name: Michelle Conner Age: 23 yrs Sex: Female : 2000 Arrival Date: 04/17/2024 Time: 10:14 Bed 23 Private MD: ED Physician Hussain Luna HPI: 04/17 10:48 This 23 yrs old Black Female presents to ER via Ambulatory with complaints of rn Laceration - to vagina. 10:48 The patient has a laceration related to: Sex occurred at home. Onset: The rn symptoms/episode began/occurred last night. The patient has not experienced similar symptoms in the past. The patient has not recently seen a physician. Patient reports rough sex last night, sustained a small superficial tear to right internal vagina. No bleeding. Checked with her family member this morning and told to come get it checked out to see if needed a Steri-Strip or glue.. Historical: - Allergies: 10:41 PENICILLINS; ss - PMHx: 10:41 ADD/ADHD; Migraines; ss - PSHx: 10:41 Tonsillectomy; ss - Immunization history:: unknown. - Infectious Disease History:: Denies. - Social history:: Smoking status: Patient denies any tobacco usage or history of. - Family history:: not pertinent. - Hospitalizations: : No recent hospitalization is reported. ROS: 10:48 Constitutional: Negative for fever, chills, and weight loss, : Positive tear to rn vagina Exam: 10:48 Constitutional: This is a well developed, well nourished patient who is awake, alert, rn and in no acute distress. Female : Normal external genitalia. No bruising. 3 cm very superficial skin tear or mucosal tear to the right internal vagina. No active bleeding. No signs of infection. Vital Signs: 10:39 BP 131 / 91; Pulse 80; Resp 16; Temp 98.5(O); Pulse Ox 100% on R/A; Weight 77.11 kg; ss Height 5 ft. 1 in. ; Pain 3/10; 10:39 Body Mass Index 32.12 (77.11 kg, 154.94 cm) ss 10:39 Pain Scale: Adult ss MDM: 10:27 Patient medically screened. rn 10:48 Differential diagnosis: superficial laceration, Skin tear. Data reviewed: vital signs, rn nurses notes, and as a result, I will discharge patient. Special discussion: I discussed with the patient/guardian in detail that at this point there is no indication for admission to the hospital. It is understood, however, that if the symptoms persist or worsen the patient needs to return immediately for re-evaluation. ED course: Small superficial mucosal tear to vagina. No indication to emergently close at this time, will heal just fine. Also laceration happened last night around 8 PM. Too late to close as well.. Administered Medications: No medications were administered Disposition Summary: 04/17/24 10:53 Discharge Ordered Notes: Location: Home rn Problem: new rn Symptoms: have improved rn Condition: Stable rn Diagnosis - Superficial vaginal mucosal tear rn Followup: rn - With: Private Physician - When: As needed - Reason: Recheck today's complaints, Re-evaluation by your physician Discharge Instructions: - Discharge Summary Sheet rn - Skin Tear rn - Vaginal Laceration rn Forms: - Medication Reconciliation Form rn - Antibiotic barn hand - Prescription Opioid Use rn - Patient Portal Instructions rn - Leadership Thank You Letter rn Signatures: Hussain Luna MD MD rn Blanchard, Shelby, RN RN
[2024-04-17 22:41] VITALS: BP 131/91; TEMP 98.5; O2SAT 100
== END 2024-04-17 10:58 | disposition home or self-care (01) ==
LOC: ER 10:14
DX: S30.95XA Unspecified superficial injury of vagina and vulva, initial encounter (principal)
CPT/HCPCS: 99281

== ENCOUNTER 2024-09-02 15:53 | Emergency (ER) | payer BC ==
--- NOTE | 2024-09-02 17:04 | P.HP ---
Patient History Date of Service: 09/02/24 Allergies No Known Allergies Allergy (Unverified 08/28/11 19:25) Home Medications: NK 08/28/11 Assessment and Plan - Advance Directives Does patient have a Living Will: No Does patient have a Durable POA for Healthcare: No
[2024-09-02 17:20] LABS: SARS-CoV-2 Antigen CONTROL BLUE LINE VIS/BG OK; SARS-CoV-2 Antigen Rapid Res Negative (Negative)
--- NOTE | 2024-09-02 18:27 | EDPHYS ---
Physician Documentation [facility] Name: Michelle Conner Age: 24 yrs Sex: Female : 2000 Arrival Date: 09/02/2024 Time: 15:53 Bed DX3 Private MD: ED Physician Hussain Luna HPI: 09/02 18:34 This 24 yrs old Black Female presents to ER via Unassigned with complaints of Flu kb Symptoms. 18:34 Patient is a 24-year-old female who presents for a 3-day history of body aches, sore kb throat, ear pain, cough, congestion, runny nose, subjective fever and chills. Denies nausea, vomiting, diarrhea. ROS: 18:34 Constitutional: As per HPI kb Exam: 18:34 Constitutional: This is a well developed, well nourished patient who is awake, alert, kb and in no acute distress. Head/Face: Normocephalic, atraumatic. ENT: Moist Mucous membranes Cardiovascular: Regular rate Respiratory: Respirations even and unlabored. No increased work of breathing. Talking in full sentences Abdomen/GI: Soft, non-tender. No distention Skin: Warm, dry with normal turgor. Normal color. MS/ Extremity: Pulses equal, no cyanosis. Neurovascular intact. Full, normal range of motion. Neuro: Awake and alert, GCS 15, oriented to person, place, time, and situation. MDM: 18:21 Medical Screening Exam initiated kb 18:34 Differential diagnosis: flu, covid, strep, uri. Data reviewed: vital signs, nurses kb notes. Test considered but Not performed: X-ray: CXR considered but lungs clear bilaterally, resp even and unlabored. Counseling: I had a detailed discussion with the patient and/or guardian regarding the historical points, exam findings, and any diagnostic results supporting the discharge/admit diagnosis, lab results, the need for outpatient follow up, a family practitioner, to return to the emergency department if symptoms worsen or persist or if there are any questions or concerns that arise at home. 09/02 18:25 Order name: Throat Culture EDAK 09/02 18:25 Order name: Influenza Screen (A EDAK 09/02 18:25 Order name: SARS-COV-2 Antigen Rapid EDAK 09/02 18:26 Order name: Throat Culture EDMS Administered Medications: No medications were administered Disposition: 09/03 15:04 Co-signature as Attending Physician, Hussain Luna MD I reviewed the patient's care rn provided by the Advanced Practice Provider and agree with the diagnosis and treatment plan. Disposition Summary: 09/02/24 18:21 Discharge Ordered Notes: Location: Home kb Condition: Stable kb Diagnosis - Acute upper respiratory infection, unspecified kb Followup: kb - With: Emergency Department - When: As needed - Reason: Worsening of condition Followup: kb - With: Private Physician - When: 2 - 3 days - Reason: Recheck today's complaints, Continuance of care, Re-evaluation by your physician Discharge Instructions: - Discharge Summary Sheet kb - Upper Respiratory Infection, Adult, [id number] kb - Viral Respiratory Infection, [id number] kb Forms: - Medication Reconciliation Form kb - Antibiotic Education kb - Prescription Opioid Use kb - Patient Portal Instructions kb - Leadership Thank You Letter kb Signatures: Dispatcher [employer] EDMS Whitney Perez, BOOKKEEPING MACHINE OPERATOR-C BOOKKEEPING MACHINE OPERATOR-Ckb Hussain Luna MD MD rn
--- NOTE | 2024-09-02 18:27 | ER ---
Nurse's Notes [facility] Name: Michelle Conner Age: 24 yrs Sex: Female : 2000 Arrival Date: 09/02/2024 Time: 15:53 Bed DX3 Private MD: Diagnosis: Acute upper respiratory infection, unspecified Presentation: 09/02 19:00 Chief complaint: [employer] down time , see paper charting. iw Assessment: 17:00 General: Appears in no apparent distress. Behavior is calm, cooperative. Pain: iw Complains of pain in all over body aches. Neuro: Level of Consciousness is awake, alert, obeys commands, Oriented to person, place, time, situation, Moves all extremities. Cardiovascular: Patient's skin is warm and dry. Respiratory: Respiratory effort is even, unlabored, Respiratory pattern is regular. Derm: Skin is intact, is healthy with good turgor. ED Course: 18:19 Patient arrived in ED. kb3 18:21 Whitney Perez FNP-C [facility]. kb 18:21 Hussain Luna MD is Attending Physician. kb 18:22 Nissa Polanco, FLAKO is Primary Nurse. iw Administered Medications: No medications were administered Outcome: 18:21 Discharge ordered by MD. kb 18:44 Patient left the ED. iw Signatures: Whitney Perez FNP-C FNP-Nissa Manriquez, RN RN Seema Estrada RN RN kb3
== END 2024-09-02 18:44 | disposition home or self-care (01) ==
LOC: ER 15:53
DX: J06.9 Acute upper respiratory infection, unspecified (principal); Z11.52 Encounter for screening for COVID-19
CPT/HCPCS: 36415; 87070; 87081; 87804; 87811; 99281